=== PATIENT | female | born 1975 | race Caucasian/White ===

== ENCOUNTER 2016-09-02 08:52 | Emergency (ER) | payer SELFPAY ==
--- NOTE | 2016-09-02 09:04 | EDM.PDOC ---
<Estee Yoo - Last Filed: 09/02/16 10:13> ED HPI GENERAL MEDICAL PROBLEM - General Chief Complaint: General Stated Complaint: HEADACHE AND HAVEN'T HAD HER PERIOD IN 2MONTHS Time Seen by Provider: 09/02/16 08:55 - History of Present Illness INITIAL COMMENTS - FREE TEXT/NARRATIVE: History of present illness: [41-year-old female URI symptoms and headache x3 days. She has not tried over- the-counter medication. She denies fever chills nausea vomiting, abdominal pain , diarrhea, serious, frequency, urgency other pertinent symptoms. She has not gotten her period for past 2 months which is unusual for her. She had tubal ligation 16 years ago. She has not taken any test. She is monogamous with her and they are sexually active.] Review of systems: As per history of present illness and below otherwise all systems reviewed and negative. Past medical history: As per history of present illness and as reviewed below otherwise noncontributory. Surgical history: As per history of present illness and as reviewed below otherwise noncontributory. Social history: No reported history of drug or alcohol abuse. Family history: As per history of present illness and as reviewed below otherwise noncontributory. Physical exam: General: Well developed, well nourished in NAD HEENT: Atraumatic, normocephalic, pupils reactive, negative for conjunctival pallor or scleral icterus, mucous membranes moist, throat clear, neck supple, nontender, trachea midline. Lungs: Clear to auscultation, breath sounds equal bilaterally, chest nontender. Heart: S1S2, regular, negative for clicks, rubs, or JVD. Abdomen: Soft, nondistended, nontender. Negative for masses or hepatosplenomegaly. Negative for costovertebral tenderness. Pelvis: Stable nontender. 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: Deferred. Rectal: Deferred. Extremities: Atraumatic, negative for cords or calf pain. Neurovascular unremarkable. Neuro: Awake, alert, oriented. Cranial nerves II through XII unremarkable. Cerebellum unremarkable. Motor and sensory unremarkable throughout. Exam nonfocal. Diagnostics: [Urine H. CG negative] Therapeutics: Toradol] Impression: [Sinus headache, URI] Plan: [increase hydration, flonase , motrin prn. please follow up PCP next week. ] Definitive disposition and diagnosis as appropriate pending reevaluation and review of above. 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: Psychiatric History: Reports: Anxiety, Depression Endocrine/Metabolic History: Reports: Diabetes, type I - Past Surgical History GI Surgical History: Reports: Cholecystectomy Female Surgical History: Reports: section Social & Family History - Family History Cardiac: Reports: Hypertension, [place] - Tobacco Use Smoking Status *Q: Current Every Day Smoker Years of Tobacco use: 26 Packs/Tins Daily: 0.5 Second Hand Smoke Exposure: No - Recreational Drug Use Recreational Drug Use: No ED ROS GENERAL - Review of Systems Review Of Systems: See Below (See history of present illness) ED EXAM, GENERAL - Physical Exam Exam: See Below (See history of present illness) Course - Vital Signs Last Recorded V/S: Last Vital Signs Temp 36.6 C 09/02/16 08:59 Pulse 100 09/02/16 08:59 Resp 16 09/02/16 08:59 BP 176/88 H 09/02/16 08:59 Pulse Ox 98 09/02/16 08:59 - Orders/Labs/Meds Labs: Laboratory Tests 09/02/16 Range/Units 09:37 Urine HCG, Qual NEGATIVE (NEGATIVE) Meds: Medications Discontinued Medications Generic Name Dose Route Start Last Admin Trade Name Salomónq PRN Reason Stop Dose Admin Ketorolac Tromethamine 60 mg 09/02/16 09:12 09/02/16 10:12 Toradol IM 09/02/16 09:13 60 mg ONETIME ONE Administration Departure - Departure Time of Disposition: 10:17 Disposition: Home, Self-Care 01 Condition: good Clinical Impression: URI (upper respiratory infection), Sinusitis Instructions: Sinusitis, Adult, [id number], Upper Respiratory Infection, Adult, [id number] Referrals: Bran Hubbard MD [Primary Care Provider] - Forms: ED Department Discharge Additional Instructions: The following information is given to patients seen in the emergency department who are being discharged to home. This information is to outline your options for follow-up care. We provide all patients seen in our emergency department with a follow-up referral. The need for follow-up, as well as the timing and circumstances, are variable depending upon the specifics of your emergency department visit. If you don't have a primary care physician on staff, we will provide you with a referral. We always advise you to contact your personal physician following an emergency department visit to inform them of the circumstance of the visit and for follow-up with them and/or the need for any referrals to a consulting specialist. The emergency department will also refer you to a specialist when appropriate. This referral assures that you have the opportunity for follow-up care with a specialist. All of these measure are taken in an effort to provide you with optimal care, which includes your follow-up. Under all circumstances we always encourage you to contact your private physician who remains a resource for coordinating your care. When calling for follow-up care, please make the office aware that this follow-up is from your recent emergency room visit. If for any reason you are refused follow-up, please contact the [facility] Emergency Department at and asked to speak to the emergency department charge nurse. <Daniel Johnson - Last Filed: 09/02/16 10:42> ED HPI GENERAL MEDICAL PROBLEM - General Source of Information: Reports: Patient History Limitations: Reports: No limitations - History of Present Illness INITIAL COMMENTS - FREE TEXT/NARRATIVE: 31-year-old female admitting of sinus congestion and clear runny nose. This is this is a mild frontal sinus headache. Has occasional dry cough and congestion her left maxillary sinus area is the most sore. On exam patient is well-appearing alert communicative has a supple neck clear rhinorrhea mild tenderness left maxillary sinus normal TMs and oropharynx clear lungs and unremarkable vital signs Patient has had a history of tubal ligation but she hasn't had a period recently and is wondering if she could be urine was negative. Patient given Toradol IM. Recommended for outpatient followup with which patient agrees she will use Flonase nasal spray as an outpatient. No further workup or treatment indicated patient agrees with outpatient followup strict return precautions given Daniel Johnson M.D.
[2016-09-02] MEDS ORDERED: Ketorolac 60 MG/2 ML SDV IM ONE (09:12)
[2016-09-02 10:59] VITALS: BP 145/69
== END 2016-09-02 10:27 | disposition home or self-care (01) ==
LOC: MW.ED 08:52
DX: R51 Headache (principal); J06.9 Acute upper respiratory infection, unspecified; I10 Essential (primary) hypertension; E10.9 Type 1 diabetes mellitus without complications; F17.210 Nicotine dependence, cigarettes, uncomplicated; Z79.4 Long term (current) use of insulin; Z79.899 Other long term (current) drug therapy; Z90.49 Acquired absence of other specified parts of digestive tract; Z98.890 Other specified postprocedural states
CPT/HCPCS: 81025; 96372; 99284; J1885; 99283

== ENCOUNTER 2016-12-06 07:19 | Emergency (ER) | payer OTHER ==
--- NOTE | 2016-12-06 07:45 | EDM.PDOC ---
ED HPI GENERAL MEDICAL PROBLEM - General Chief Complaint: ENT Problem Stated Complaint: RIGHT EAR PAIN Time Seen by Provider: 12/06/16 07:40 - History of Present Illness INITIAL COMMENTS - FREE TEXT/NARRATIVE: HISTORY AND PHYSICAL: History of present illness: Patient 41-year-old female presents with concern of right ear and right throat pain despite over last 2-3 days his been no fever chills nausea vomiting or other complaints Review of systems: As per history of present illness and below otherwise all systems reviewed and negative. Past medical history: As per history of present illness and as reviewed below otherwise noncontributory. Surgical history: As per history of present illness and as reviewed below otherwise noncontributory. Social history: No reported history of drug or alcohol abuse. Family history: As per history of present illness and as reviewed below otherwise noncontributory. Physical exam: HEENT: Atraumatic, normocephalic, pupils reactive, negative for conjunctival pallor or scleral icterus, mucous membranes moist, throat injected neck negative for peritonsillar fullness or uvular deviation supple, nontender, trachea midline. TMs normal Lungs: Clear to auscultation, breath sounds equal bilaterally, chest nontender. Heart: S1S2, regular, negative for clicks, rubs, or JVD. Abdomen: Soft, nondistended, nontender. Negative for masses or hepatosplenomegaly. Negative for costovertebral tenderness. Pelvis: Stable nontender. 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: Deferred. Rectal: Deferred. Extremities: Atraumatic, negative for cords or calf pain. Neurovascular unremarkable. Neuro: Awake, alert, oriented. Cranial nerves II through XII unremarkable. Cerebellum unremarkable. Motor and sensory unremarkable throughout. Exam nonfocal. Diagnostics: None Therapeutics: None Impression: #1 pharyngitis #2 otalgia Definitive disposition and diagnosis as appropriate pending reevaluation and review of above. 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: Psychiatric History: Reports: Anxiety, Depression Endocrine/Metabolic History: Reports: Diabetes, Type I - Infectious Disease History Infectious Disease History: Reports: Chicken Pox - Past Surgical History GI Surgical History: Reports: Cholecystectomy Female Surgical History: Reports: Section Social & Family History - Family History Family Medical History: Noncontributory Cardiac: Reports: Hypertension, [place] - Tobacco Use Smoking Status *Q: Never Smoker Years of Tobacco use: 26 Packs/Tins Daily: 0.5 Second Hand Smoke Exposure: No - Recreational Drug Use Recreational Drug Use: No ED ROS GENERAL - Review of Systems Review Of Systems: ROS reveals no pertinent complaints other than HPI. ED EXAM, GENERAL - Physical Exam Exam: See Below (See dictation) Course - Vital Signs Last Recorded V/S: Last Vital Signs Temp 36.2 C 12/06/16 07:29 Pulse 90 12/06/16 07:29 Resp 18 12/06/16 07:29 BP 178/81 H 12/06/16 07:29 Pulse Ox 97 12/06/16 07:29 Departure - Departure Time of Disposition: 07:43 Disposition: Home, Self-Care 01 Condition: Good Clinical Impression: Pharyngitis - Discharge Information Forms: ED Department Discharge Additional Instructions: The following information is given to patients seen in the emergency department who are being discharged to home. This information is to outline your options for follow-up care. We provide all patients seen in our emergency department with a follow-up referral. The need for follow-up, as well as the timing and circumstances, are variable depending upon the specifics of your emergency department visit. If you don't have a primary care physician on staff, we will provide you with a referral. We always advise you to contact your personal physician following an emergency department visit to inform them of the circumstance of the visit and for follow-up with them and/or the need for any referrals to a consulting specialist. The emergency department will also refer you to a specialist when appropriate. This referral assures that you have the opportunity for followup care with a specialist. All of these measure are taken in an effort to provide you with optimal care, which includes your followup. Under all circumstances we always encourage you to contact your private physician who remains a resource for coordinating your care. When calling for followup care, please make the office aware that this follow-up is from your recent emergency room visit. If for any reason you are refused follow-up, please contact the [facility] emergency department at and asked to speak to the emergency department charge nurse. Augmentin Tylenol with Codeine as prescribed push fluids follow primary medical doctor one of today's return as needed as discussed
== END 2016-12-06 07:53 | disposition home or self-care (01) ==
LOC: MW.ED 07:19
CPT/HCPCS: 99282

== ENCOUNTER 2017-03-14 13:39 | Observation (INO) | payer OTHER ==
[2017-03-14] MEDS ORDERED: Aspirin 81 MG Tab.Chew PO ONE (13:51)
[2017-03-14] MEDS ORDERED: Sodium Chloride 0.9% 10 ML Syringe FLUSH PRN (13:51)
[2017-03-14] MEDS ORDERED: Sodium Chloride 0.9% 2.5 ML Syringe FLUSH PRN (13:51)
--- NOTE | 2017-03-14 14:20 | EDM.PDOC ---
ED HPI GENERAL MEDICAL PROBLEM - General Chief Complaint: Chest Pain Stated Complaint: CHEST PAIN Time Seen by Provider: 03/14/17 13:51 Source of Information: Reports: Patient History Limitations: Reports: No Limitations - History of Present Illness INITIAL COMMENTS - FREE TEXT/NARRATIVE: HISTORY AND PHYSICAL: History of present illness: Shouldn't is a 42-year-old female who presents to the emergency room today with complaints of chest pain that started at 10 AM this morning. She states the pain is midsternal and moves into the left chest and down the left arm. She denies any diaphoresis, nausea, vomiting. Is associated with shortness of breath. When the pain started she states she was at rest. Currently nothing makes the pain better or worse. Chest pain is not reproducible with palpation. She has no personal history of heart disease. States both grandparents have history of [place]. Patient has a history of diabetes type 1 which she takes insulin for. States she states she is well controlled. As a history of anxiety and currently has increased stressors going on at home. Not take any when necessary or daily medication for this. Review of systems: As per history of present illness and below otherwise all systems reviewed and negative. Past medical history: As per history of present illness and as reviewed below otherwise noncontributory. Surgical history: As per history of present illness and as reviewed below otherwise noncontributory. Social history: No reported history of drug or alcohol abuse. Family history: As per history of present illness and as reviewed below otherwise noncontributory. Physical exam: General: Nontoxic appearing 42-year-old female. Able to speak in full sentences without shortness of breath. Alert and oriented. HEENT: Atraumatic, normocephalic, pupils reactive, negative for conjunctival pallor or scleral icterus, mucous membranes moist, throat clear, neck supple, nontender, trachea midline. Lungs: Clear to auscultation, breath sounds equal bilaterally, chest nontender. Heart: S1S2, regular rate and rhythm Abdomen: Soft, nondistended, nontender. Negative for masses or hepatosplenomegaly. Negative for costovertebral tenderness. Pelvis: Stable nontender. 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: Deferred. Rectal: Deferred. Extremities: Atraumatic, negative for cords or calf pain. Neurovascular unremarkable. Neuro: Awake, alert, oriented. Cranial nerves II through XII unremarkable. Cerebellum unremarkable. Motor and sensory unremarkable throughout. Exam nonfocal. Reviewed all testing results with patient. At this time I did offer her admission for observation, she is agreeable to stay. Upon discussing her plan of care she became tearful stating that she had increased stressors at home and was thought that her significant other was not coming to be wither (going through a divorce). Dr. miguel was consulted on this case and he has agreed to admit for observation on telemetry. Diagnostics: CBC, CMP, troponin, EKG, one view chest, Therapeutics: Aspirin, nitroglycerin Nitropaste Impression: Chest pain, rule out myocardial infarction Plan: Observation admission for med surge on telemetry Definitive disposition and diagnosis as appropriate pending reevaluation and review of above. Onset: Today Onset Date: 03/14/17 Onset Time: 10:00 Duration: Hour(s): Location: Reports: Chest chest Pain Score (Numeric/FACES): 10 - Related Data Allergies Allergy/AdvReac Type Severity Reaction Status Date / Time No Known Allergies Allergy Verified 09/02/16 09:02 Home Meds: Home Meds Insulin Aspart [Novolog Flexpen] 72 units SQ BEDTIME 04/25/14 [History] Lisinopril 1 tab PO DAILY 03/31/15 [History] Insulin Glargine,Hum.Rec.Anlog [Toujeo Solostar] 74 unit SQ BEDTIME 03/14/17 [ History] Omeprazole Magnesium [Prilosec Otc] 20 mg PO DAILY 03/14/17 [History] atorvaSTATin [Lipitor] 10 mg PO DAILY 03/14/17 [History] Past Medical History - Past Health History Medical/Surgical History: Denies Medical/Surgical History Cardiovascular History: Reports: Hypertension 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 History: Reports: 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: Psychiatric History: Reports: Anxiety, Depression Endocrine/Metabolic History: Reports: Diabetes, Type I - Infectious Disease History Infectious Disease History: Reports: Chicken Pox - Past Surgical History GI Surgical History: Reports: Cholecystectomy Female Surgical History: Reports: Section Social & Family History - Family History Family Medical History: Noncontributory Cardiac: Reports: Hypertension, [place] - Tobacco Use Smoking Status *Q: Current Every Day Smoker Years of Tobacco use: 18 Packs/Tins Daily: 1 Second Hand Smoke Exposure: No - Recreational Drug Use Recreational Drug Use: No ED ROS GENERAL - Review of Systems Review Of Systems: ROS reveals no pertinent complaints other than HPI. ED EXAM, GENERAL - Physical Exam Exam: See Below (See dictation) Course - Vital Signs Last Recorded V/S: Last Vital Signs Temp 36.6 C 03/14/17 15:39 Pulse 84 03/14/17 15:39 Resp 18 03/14/17 15:39 BP 167/77 H 03/14/17 15:39 Pulse Ox 97 03/14/17 15:39 - Orders/Labs/Meds Orders: Active Orders 24 hr Category Date Time Status Admission Status [Patient Status] [ADT] Stat ADT 03/14/17 15:14 Ordered EKG Documentation Completion [RC] STAT Care 03/14/17 13:51 Active Telemetry Monitoring [Cardiac Monitoring] [RC] Q8H Care 03/14/17 15:22 Active Chest 1V Frontal [CR] Stat Exams 03/14/17 13:51 Taken Sodium Chloride 0.9% [Saline Flush] Med 03/14/17 13:51 Active 10 ml FLUSH ASDIRECTED PRN Sodium Chloride 0.9% [Saline Flush] Med 03/14/17 13:51 Active 2.5 ml FLUSH ASDIRECTED PRN Saline Lock Insert [OM.PC] Stat Oth 03/14/17 13:51 Ordered Medication Orders Sodium Chloride (Saline Flush) 10 ml FLUSH ASDIRECTED PRN PRN Reason: Keep Vein Open Last Admin: 03/14/17 14:28 Dose: 10 ml Sodium Chloride (Saline Flush) 2.5 ml FLUSH ASDIRECTED PRN PRN Reason: Keep Vein Open Last Admin: 03/14/17 14:28 Dose: 2.5 ml Labs: Laboratory Tests 03/14/17 03/14/17 03/14/17 Range/Units 14:00 14:00 14:00 WBC 10.14 (4.0-11.0) K/uL RBC 4.19 L (4.30-5.90) M/uL Hgb 12.9 (12.0-16.0) g/dL Hct 38.6 (36.0-46.0) % MCV 92.1 (80.0-98.0) fL MCH 30.8 (27.0-32.0) pg MCHC 33.4 (31.0-37.0) g/dL RDW Std Deviation 45.8 (28.0-62.0) fl RDW Coeff of Jb 14 (11.0-15.0) % Plt Count 245 (150-400) K/uL MPV 10.90 (7.40-12.00) fL Neut % (Auto) 66.2 (48.0-80.0) % Lymph % (Auto) 20.8 (16.0-40.0) % Smith % (Auto) 9.3 (0.0-15.0) % Eos % (Auto) 3.1 (0.0-7.0) % Baso % (Auto) 0.6 (0.0-1.5) % Neut # (Auto) 6.7 H (1.4-5.7) K/uL Lymph # (Auto) 2.1 (0.6-2.4) K/uL Smith # (Auto) 0.9 H (0.0-0.8) K/uL Eos # (Auto) 0.3 (0.0-0.7) K/uL Baso # (Auto) 0.1 (0.0-0.1) K/uL Sodium 140 (136-146) mmol/L Potassium 4.0 (3.5-5.1) mmol/L Chloride 109 (98-110) mmol/L Carbon Dioxide 22 (21-31) mmol/L BUN 18 (6.0-23.0) mg/dL Creatinine 0.8 (0.6-1.5) mg/dL Est Cr Clr Drug Dosing TNP Estimated GFR (MDRD) > 60.0 ml/min Glucose 170 H (60-110) mg/dL Calcium 8.5 L (8.8-10.8) mg/dL Total Bilirubin 0.4 (0.1-1.5) mg/dL AST 17 (5-40) IU/L ALT 14 (8-54) IU/L Alkaline Phosphatase 76 (40-150) Troponin I < 0.10 (0.0-0.29) NG/ML Total Protein 6.7 (6.0-8.0) g/dL Albumin 3.9 (3.5-5.0) g/dL Globulin 2.8 (2.0-3.5) g/dL Albumin/Globulin Ratio 1.4 (1.3-2.8) Meds: Medications Generic Name Dose Route Start Last Admin Trade Name Salomónq PRN Reason Stop Dose Admin Sodium Chloride 10 ml 03/14/17 13:51 03/14/17 14:28 Saline Flush FLUSH 10 ml ASDIRECTED PRN Administration Keep Vein Open Sodium Chloride 2.5 ml 03/14/17 13:51 03/14/17 14:28 Saline Flush FLUSH 2.5 ml ASDIRECTED PRN Administration Keep Vein Open Discontinued Medications Generic Name Dose Route Start Last Admin Trade Name Thu PRN Reason Stop Dose Admin Aspirin 324 mg 03/14/17 13:51 03/14/17 14:23 Aspirin PO 03/14/17 13:52 324 mg ONETIME ONE Administration Influenza Virus Vaccine 1 each 03/14/17 15:54 Pharmacy To Dose - Influenza Vaccine IM 03/14/17 15:55 ONETIME ONE Influenza Virus Vaccine 60 mcg 03/14/17 16:00 Flulaval Quad [id number] IM 03/14/17 16:01 .ONCE ONE Morphine Sulfate 2 mg 03/14/17 15:09 03/14/17 15:27 Morphine IVPUSH 03/14/17 15:10 2 mg ONETIME ONE Administration Nitroglycerin 0.4 mg 03/14/17 13:58 03/14/17 14:35 Nitrostat SL 0.4 mg Q5M PRN Administration Chest Pain Nitroglycerin 1 gm 03/14/17 15:09 03/14/17 15:28 Nitro-Bid 2% TOP 03/14/17 15:10 1 gm ONETIME ONE Administration Departure - Departure Time of Disposition: 16:07 Disposition: Refer to Observation Clinical Impression: Chest pain, rule out acute myocardial infarction Referrals: PCP,None [Ordering Only Provider] - Forms: ED Department Discharge - My Orders Last 24 Hours: My Active Orders 03/14/17 13:51 EKG Documentation Completion [RC] STAT Chest 1V Frontal [CR] Stat Sodium Chloride 0.9% [Saline Flush] 10 ml FLUSH ASDIRECTED PRN Sodium Chloride 0.9% [Saline Flush] 2.5 ml FLUSH ASDIRECTED PRN Saline Lock Insert [OM.PC] Stat 03/14/17 15:14 Admission Status [Patient Status] [ADT] Stat - Assessment/Plan Last 24 Hours: My Active Orders 03/14/17 13:51 EKG Documentation Completion [RC] STAT Chest 1V Frontal [CR] Stat Sodium Chloride 0.9% [Saline Flush] 10 ml FLUSH ASDIRECTED PRN Sodium Chloride 0.9% [Saline Flush] 2.5 ml FLUSH ASDIRECTED PRN Saline Lock Insert [OM.PC] Stat 03/14/17 15:14 Admission Status [Patient Status] [ADT] Stat
[2017-03-14] MEDS: Nitroglycerin 0.4 MG Tab.SL SL PRN ×3 (14:27→14:35)
[2017-03-14 14:29] LABS: CHLORIDE,CL 109 mmol/L (98-110); SODIUM,NA 140 mmol/L (136-146)
[2017-03-14] MEDS ORDERED: Nitroglycerin 2% Oint 1 GM UD Packet TOP ONE (15:09)
[2017-03-14] MEDS ORDERED: Morphine 2 MG/ML Syringe IVPUSH ONE (15:09)
--- NOTE | 2017-03-14 15:52 | PCM.HP ---
H&P History of Present Illness - General Date of Service: 03/14/17 Admit Problem/Dx: Admission Diagnosis/Problem Admission Diagnosis/Problem Chest pain, rule out acute myocardial infarction Source of Information: Patient History Limitations: Reports: No Limitations - History of Present Illness Initial Comments - Free Text/Narative: 42 yo fm with history of HTN, IDDM & hyperlipidemia is admitted for chest pain. Chest pain began at 10 am today. She was moving things in her house. Pain was intermittent at first but then became continuous. It was pressure like, left sided and at its worst it was 10/10. She had tingling sensation down her left arm. She denies any associated, sob, dizziness, vision change, cough, vomiting, abdominal pain, fever, chills, or recent illness. She presented to the ED where she was given Morphine an Nitroglycerin patch which improved pain to 4-5/10. She has no previous history of similar type of pain. While being evaluated on the floor, she had recurrence of chest pain. chest Pain Score (Numeric/FACES): 10 - Related Data Allergies/Adverse Reactions: Allergies Allergy/AdvReac Type Severity Reaction Status Date / Time No Known Allergies Allergy Verified 09/02/16 09:02 Home Medications: Home Meds Insulin Aspart [Novolog Flexpen] 5 units SQ BIDAC 04/25/14 [History] Lisinopril 10 mg PO DAILY 03/31/15 [History] Insulin Glargine,Hum.Rec.Anlog [Toujeo Solostar] 74 unit SQ BEDTIME 03/14/17 [ History] Omeprazole Magnesium [Prilosec Otc] 20 mg PO DAILY 03/14/17 [History] atorvaSTATin [Lipitor] 10 mg PO DAILY 03/14/17 [History] Past Medical History - Past Health History Medical/Surgical History: Denies Medical/Surgical History Cardiovascular History: Reports: Hypertension 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 History: Reports: Renal Disease [employer] History: Reports: Psychiatric History: Reports: Anxiety, Depression Endocrine/Metabolic History: Reports: Diabetes, Type I - Infectious Disease History Infectious Disease History: Reports: Chicken Pox - Past Surgical History GI Surgical History: Reports: Cholecystectomy Female Surgical History: Reports: Section Social & Family History - Family History Family Medical History: Noncontributory Cardiac: Reports: Hypertension, [place] - Tobacco Use Smoking Status *Q: Current Every Day Smoker Years of Tobacco use: 18 Packs/Tins Daily: 1 Second Hand Smoke Exposure: No - Recreational Drug Use Recreational Drug Use: No H&P Review of Systems - Review of Systems: Review Of Systems: See Below General: Reports: No Symptoms HEENT: Reports: No Symptoms Pulmonary: Reports: No Symptoms Cardiovascular: Reports: Chest Pain Gastrointestinal: Reports: No Symptoms 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: Reports: No Symptoms 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: Reports: No Symptoms Skin: Reports: No Symptoms Psychiatric: Reports: No Symptoms Neurological: Reports: No Symptoms Hematologic/Lymphatic: Reports: No Symptoms Immunologic: Reports: No Symptoms Exam - Exam Exam: See Below - Vital Signs Vital Signs: Last Vital Signs Temp 36.6 C 03/14/17 13:39 Pulse 91 03/14/17 14:29 Resp 18 03/14/17 14:29 BP 145/69 H 03/14/17 14:35 Pulse Ox 97 03/14/17 14:29 Weight: 86.183 kg - Exam General: Alert, Oriented HEENT: Conjunctiva Clear, EACs Clear, EOMI, Hearing Intact, Mucosa Moist & [place] , Nares Patent, Normal Nasal Septum, Posterior Pharynx Clear, Pupils Equal, Pupils Reactive Neck: Supple, Trachea Midline, +2 Carotid Pulse wo Bruit. No: JVD Lungs: Clear to Auscultation, Normal Respiratory Effort Cardiovascular: Regular Rate, Regular Rhythm GI/Abdominal Exam: Soft, Non-Tender Extremities: No Pedal Edema, Other (BL Calf tenderness ). No: Increased Warmth Peripheral Pulses: 1+: Dorsalis Pedis (L), Dorsalis Pedis (R), 2+: Radial (L), Radial (R) Skin: Warm, Dry, Intact Neurological: Cranial Nerves Intact, Reflexes Equal Bilateral Neuro Extensive - Mental Status: Alert, Oriented x3 Psychiatric: Anxious - Patient Data Result Diagrams: 03/14/17 14:00 03/14/17 14:00 *Q Meaningful Use (ADM) - VTE *Q VTE Criteria *Q: - Stroke *Q Stroke Criteria *Q: - AMI *Q AMI Criteria *Q: Problem List Initiated/Reviewed/Updated: Yes Orders Last 24hrs: Active Orders 24 hr Category Date Time Status Telemetry Monitoring [Cardiac Monitoring] [RC] Q8H Care 03/14/17 15:22 Active Medication Orders Sodium Chloride (Saline Flush) 10 ml FLUSH ASDIRECTED PRN PRN Reason: Keep Vein Open Last Admin: 03/14/17 14:28 Dose: 10 ml Sodium Chloride (Saline Flush) 2.5 ml FLUSH ASDIRECTED PRN PRN Reason: Keep Vein Open Last Admin: 03/14/17 14:28 Dose: 2.5 ml Assessment/Plan Comment:: Assessment: 42 yo fm with history of DM admitted for chest pain rule out. Initial EKG/Troponin/CXR in ED was negative. She is noted of having BL Calf tenderness. Still having breakthrough intermittent chest pain with Nitroglycerin patch 1. Chest Pain 2. DM, Insulin Dependent 3. HTN, on Lisinopril 4. Hyperlipidemia, on Lipitor 5. Tobacco Abuse Plan: 1. Admit to Observation 2. Add D-Dimer to ED blood draw. CTA if elevated. 3. Telemetry 4. Obtain Toropin q6 hours for total 3 readings. 5. start Continuous O2 until PE ruled out. Then switch to PRN to maintain SpO2> 92 6.give Morphine 2 mg IV now. then continue PRN for severe pain 7-10 7. Diabetic Diet 8. resume home long acting insulin 74 units 9. start Novolog low dose as per protocol & glucose check TIDAC 10. resume home Lisinopril & Lipitor
[2017-03-14] MEDS ORDERED: FLU Vacc QS 2017-18 (6mos UP)/PF 60 MCG/0.5 ML Syringe IM ONE (16:00)
[2017-03-14] MEDS: Morphine 2 MG/ML Syringe IVPUSH PRN ×2 (16:29→18:32)
[2017-03-14] MEDS: Insulin Aspart 100 Units/ML 3 ML Pen SUBCUT SCH ×2 (16:34→17:19)
--- NOTE | 2017-03-14 18:08 | PCM.SN ---
- Free Text/Narrative Note: I have interviewed and examined Jacqueline Madrid, I have reviewed her data. I agree with Dr. Munroe's noted history, exam and plan. Her calves have specific tenderness but no redness or swelling. The D-Dimer was negative and CT angio of the chest is not thought to be indicated. She will have further troponin testing and will have diabetic monitoring. The morphine has relieved her pain.
[2017-03-14] MEDS: Acetaminophen 325 MG Tab PO PRN (18:12)
[2017-03-14] MEDS ORDERED: 50% Dextrose in Water 50 ML Syringe IVPUSH ONE ×2 (19:46→22:08)
[2017-03-14] MEDS ORDERED: INSULIN GLARGINE HUM REC ANLOG SQ SCH (21:00)
[2017-03-14] MEDS ORDERED: LORazepam 0.5 MG Tab PO PRN (21:00)
[2017-03-14] MEDS ORDERED: [UNRECOGNIZED DRUG - OTHER] SQ SCH (21:00)
[2017-03-14] MEDS ORDERED: 50% Dextrose in Water 50 ML Syringe IVPUSH PRN (22:11)
[2017-03-15 02:26] LABS: CHLORIDE,CL 110 mmol/L (98-110); SODIUM,NA 141 mmol/L (136-146)
[2017-03-15] MEDS: 50% Dextrose in Water 50 ML Syringe IVPUSH PRN ×2 (06:24→11:37)
[2017-03-15] MEDS: Insulin Aspart 100 Units/ML 3 ML Pen SUBCUT SCH ×2 (06:43→12:11)
[2017-03-15] MEDS: Acetaminophen 325 MG Tab PO PRN (08:13)
[2017-03-15] MEDS ORDERED: Enoxaparin 40 MG/0.4 ML Syringe SUBCUT SCH (09:00)
--- NOTE | 2017-03-15 10:52 | PCM.DCSUM1 ---
<Baluch,Darien - Last Filed: 03/15/17 12:32> Discharge Summary - Hospital Course Free Text/Narrative:: 42 yo fm with history of DM T1, HTN and Hyperlidema was admitted for chest pain on 03/14/17. Her chest pain was atypical in that it was intermittent and occurring at rest. It would occur in short bursts but did become milder as the night progressed. Her initial EKG, troponin and CXR were negative. She was placed on observation with telemetry. Her overnight telemetry was NSR with HR 70 -90 with intermittent PVC's (approximately 1-2/ hour). Her Troponin was checked [id number] for 3 sets and were all negative. She did have recurrence of short mild intermittent chest pain the next morning. She was given referral for stress test and scheduled for f/u with Dr. Leonardo. During hospitalizations he also was noted have episodes of hypoglycemia for which she needed to be given D50 of multiple occasions. She was asymptomatic when this happened. Her Toujeo is 74 units Daily at bedtime. This was held. The following day she was still noted to be hypoglycemic on 2 separate occasions with blood glucose ranging from 30-40. One of these events occurred about 1-2 hours after she ate small meal from [employer]. Due to suspicion of faulty we had it checked with a different glucometer and found it to off by 20 points. Therefore we presume her blood glucose was still approximately 40-60. Therefore we instructed her to test her blood glucose at home at least 4 times daily. She was instructed to hold her Toujeo unless she found her blood sugar to return back to normal range. She was also instructed to follow-up with her PCP Dr. Hubbard due to this matter. She was discharged home on 03/15/17. - Discharge Data Discharge Date: 03/15/17 Discharge Disposition: Home, Self-Care 01 Condition: Good - Patient Summary/Data Recommended Follow-up Testing/Procedures: Stress Test - Patient Instructions Diet: Usual Diet as Tolerated Diet, Other: Avoid going long periods without eating or driniking Activity: As Tolerated, Rest and Relax Today Showering/Bathing: May Shower Notify Provider of: Fever, Increased Pain, Swelling and Redness, Drainage, Nausea and/or Vomiting Other/Special Instructions: 1. Avoid using your Toujeo until your appetite is improved and you are eating more ofter. 2. Check your blood sugar more than twice per day to ensure it is not low. If it is low eat something immediateley. 3. You should call your PCP to schedule appointment regarding you low blood sugar and discuss your insulin dose. 4. You will be contacted by the Hospital to schedule your Stress Test. 5. You should contact office of Dr. Leonardo to schedule a follow-up appointment for your chest pain. - Discharge Plan Home Medications: Home Meds Insulin Aspart [Novolog Flexpen] 5 units SQ BIDAC 04/25/14 [History] Lisinopril 10 mg PO DAILY 03/31/15 [History] Insulin Glargine,Hum.Rec.Anlog [Toujeo Solostar] 74 unit SQ BEDTIME 03/14/17 [ History] Omeprazole Magnesium [Prilosec Otc] 20 mg PO DAILY 03/14/17 [History] Venlafaxine HCl [Venlafaxine ER] 75 mg PO 03/14/17 [History] atorvaSTATin [Lipitor] 10 mg PO DAILY 03/14/17 [History] Patient Handouts: Hypoglycemia, Nonspecific Chest Pain, [id number] Forms: ED Department Discharge Referrals: [facility] [Outside] Melissa Leonardo MD [Physician] - Bran Hubbard MD [Physician] - PCP,None [Primary Care Provider] - (1. Call Dr. Leonardo, [facility] office to schedule apppointment on thursday 2. Call your PCP Dr. Hubbard to schedule appointment on thursday ) - Discharge Summary/Plan Comment DC Time >30 min.: No - Patient Data Vitals - Most Recent: Last Vital Signs Temp 36.2 C 03/15/17 08:00 Pulse 72 03/15/17 08:00 Resp 18 03/15/17 08:00 BP 147/66 H 03/15/17 08:00 Pulse Ox 97 03/15/17 08:00 Weight - Most Recent: 86.183 kg I&O - Last 24 hours: Intake & Output 03/14/17 03/15/17 03/15/17 22:59 06:59 14:59 Intake Total 0 1044 Output Total 0 575 Balance 0 469 Lab Results - Last 24 hrs: Laboratory Results - last 24 hr 03/14/17 03/14/17 03/14/17 Range/Units 16:33 19:37 20:07 WBC (4.0-11.0) K/uL RBC (4.30-5.90) M/uL Hgb (12.0-16.0) g/dL Hct (36.0-46.0) % MCV (80.0-98.0) fL MCH (27.0-32.0) pg MCHC (31.0-37.0) g/dL RDW Std Deviation (28.0-62.0) fl RDW Coeff of Jb (11.0-15.0) % Plt Count (150-400) K/uL MPV (7.40-12.00) fL Neut % (Auto) (48.0-80.0) % Lymph % (Auto) (16.0-40.0) % Carlisle % (Auto) (0.0-15.0) % Eos % (Auto) (0.0-7.0) % Baso % (Auto) (0.0-1.5) % Neut # (Auto) (1.4-5.7) K/uL Lymph # (Auto) (0.6-2.4) K/uL Carlisle # (Auto) (0.0-0.8) K/uL Eos # (Auto) (0.0-0.7) K/uL Baso # (Auto) (0.0-0.1) K/uL Sodium (136-146) mmol/L Potassium (3.5-5.1) mmol/L Chloride (98-110) mmol/L Carbon Dioxide (21-31) mmol/L BUN (6.0-23.0) mg/dL Creatinine (0.6-1.5) mg/dL Est Cr Clr Drug Dosing mL/min Estimated GFR (MDRD) ml/min Glucose (60-110) mg/dL POC Glucose 89 26 L (60-110) mg/dL Calcium (8.8-10.8) mg/dL Troponin I < 0.10 (0.0-0.29) NG/ML 03/14/17 03/14/17 03/15/17 Range/Units 22:00 23:51 01:56 WBC 10.58 (4.0-11.0) K/uL RBC 4.02 L (4.30-5.90) M/uL Hgb 12.3 (12.0-16.0) g/dL Hct 37.6 (36.0-46.0) % MCV 93.5 (80.0-98.0) fL MCH 30.6 (27.0-32.0) pg MCHC 32.7 (31.0-37.0) g/dL RDW Std Deviation 46.4 (28.0-62.0) fl RDW Coeff of Jb 14 (11.0-15.0) % Plt Count 223 (150-400) K/uL MPV 10.80 (7.40-12.00) fL Neut % (Auto) 55.9 (48.0-80.0) % Lymph % (Auto) 30.6 (16.0-40.0) % Carlisle % (Auto) 9.2 (0.0-15.0) % Eos % (Auto) 3.9 (0.0-7.0) % Baso % (Auto) 0.4 (0.0-1.5) % Neut # (Auto) 5.9 H (1.4-5.7) K/uL Lymph # (Auto) 3.2 H (0.6-2.4) K/uL Carlisle # (Auto) 1.0 H (0.0-0.8) K/uL Eos # (Auto) 0.4 (0.0-0.7) K/uL Baso # (Auto) 0.0 (0.0-0.1) K/uL Sodium (136-146) mmol/L Potassium (3.5-5.1) mmol/L Chloride (98-110) mmol/L Carbon Dioxide (21-31) mmol/L BUN (6.0-23.0) mg/dL Creatinine (0.6-1.5) mg/dL Est Cr Clr Drug Dosing mL/min Estimated GFR (MDRD) ml/min Glucose (60-110) mg/dL POC Glucose 46 L 128 H (60-110) mg/dL Calcium (8.8-10.8) mg/dL Troponin I (0.0-0.29) NG/ML 03/15/17 03/15/1717 Range/Units 01:56 01:56 06:21 WBC (4.0-11.0) K/uL RBC (4.30-5.90) M/uL Hgb (12.0-16.0) g/dL Hct (36.0-46.0) % MCV (80.0-98.0) fL MCH (27.0-32.0) pg MCHC (31.0-37.0) g/dL RDW Std Deviation (28.0-62.0) fl RDW Coeff of Jb (11.0-15.0) % Plt Count (150-400) K/uL MPV (7.40-12.00) fL Neut % (Auto) (48.0-80.0) % Lymph % (Auto) (16.0-40.0) % Carlisle % (Auto) (0.0-15.0) % Eos % (Auto) (0.0-7.0) % Baso % (Auto) (0.0-1.5) % Neut # (Auto) (1.4-5.7) K/uL Lymph # (Auto) (0.6-2.4) K/uL Carlisle # (Auto) (0.0-0.8) K/uL Eos # (Auto) (0.0-0.7) K/uL Baso # (Auto) (0.0-0.1) K/uL Sodium 141 (136-146) mmol/L Potassium 4.2 (3.5-5.1) mmol/L Chloride 110 (98-110) mmol/L Carbon Dioxide 25 (21-31) mmol/L BUN 19 (6.0-23.0) mg/dL Creatinine 0.8 (0.6-1.5) mg/dL Est Cr Clr Drug Dosing 71.71 mL/min Estimated GFR (MDRD) > 60.0 ml/min Glucose 89 (60-110) mg/dL POC Glucose 25 L (60-110) mg/dL Calcium 8.9 (8.8-10.8) mg/dL Troponin I < 0.10 (0.0-0.29) NG/ML 03/15/17 Range/Units 07:04 WBC (4.0-11.0) K/uL RBC (4.30-5.90) M/uL Hgb (12.0-16.0) g/dL Hct (36.0-46.0) % MCV (80.0-98.0) fL MCH (27.0-32.0) pg MCHC (31.0-37.0) g/dL RDW Std Deviation (28.0-62.0) fl RDW Coeff of Jb (11.0-15.0) % Plt Count (150-400) K/uL MPV (7.40-12.00) fL Neut % (Auto) (48.0-80.0) % Lymph % (Auto) (16.0-40.0) % Carlisle % (Auto) (0.0-15.0) % Eos % (Auto) (0.0-7.0) % Baso % (Auto) (0.0-1.5) % Neut # (Auto) (1.4-5.7) K/uL Lymph # (Auto) (0.6-2.4) K/uL Carlisle # (Auto) (0.0-0.8) K/uL Eos # (Auto) (0.0-0.7) K/uL Baso # (Auto) (0.0-0.1) K/uL Sodium (136-146) mmol/L Potassium (3.5-5.1) mmol/L Chloride (98-110) mmol/L Carbon Dioxide (21-31) mmol/L BUN (6.0-23.0) mg/dL Creatinine (0.6-1.5) mg/dL Est Cr Clr Drug Dosing mL/min Estimated GFR (MDRD) ml/min Glucose (60-110) mg/dL POC Glucose 126 H (60-110) mg/dL Calcium (8.8-10.8) mg/dL Troponin I (0.0-0.29) NG/ML Med Orders - Current: Current Medications Acetaminophen (Tylenol) 650 mg PO Q4H PRN PRN Reason: Pain (Mild 1-3)/fever Last Admin: 03/15/17 08:13 Dose: 650 mg Dextrose/Water (Dextrose 50% In Water) 50 ml IVPUSH ASDIRECTED PRN PRN Reason: Blood Glucose Last Admin: 03/15/17 06:24 Dose: 50 ml Dextrose/Water (Dextrose 50% In Water) 25 ml IVPUSH ASDIRECTED PRN PRN Reason: Hypoglycemia Enoxaparin Sodium (Lovenox) 40 mg SUBCUT DAILY [facility] Last Admin: 03/15/17 08:10 Dose: 40 mg Insulin Aspart (Novolog) 0 unit SUBCUT TIDAC WEI PRN Reason: Protocol Last Admin: 03/15/17 06:43 Dose: Not Given Lorazepam (Ativan) 0.5 mg PO BID PRN PRN Reason: Anxiety Last Admin: 03/14/17 22:25 Dose: 0.5 mg Morphine Sulfate (Morphine) 2 mg IVPUSH Q2H PRN PRN Reason: Pain (severe 7-10) Stop: 03/15/17 16:15 Last Admin: 03/14/17 18:32 Dose: 2 mg Sodium Chloride (Saline Flush) 10 ml FLUSH ASDIRECTED PRN PRN Reason: Keep Vein Open Last Admin: 03/14/17 14:28 Dose: 10 ml Sodium Chloride (Saline Flush) 2.5 ml FLUSH ASDIRECTED PRN PRN Reason: Keep Vein Open Last Admin: 03/14/17 14:28 Dose: 2.5 ml Discontinued Medications Aspirin (Aspirin) 324 mg PO ONETIME ONE Stop: 03/14/17 13:52 Last Admin: 03/14/17 14:23 Dose: 324 mg Dextrose/Water (Dextrose 50% In Water) 25 ml IVPUSH ONETIME ONE Stop: 03/14/17 19:47 Last Admin: 03/14/17 20:01 Dose: 25 ml Dextrose/Water (Dextrose 50% In Water) 50 ml IVPUSH ONETIME ONE Stop: 03/14/17 22:09 Last Admin: 03/14/17 22:19 Dose: 50 ml Influenza Virus Vaccine (Pharmacy To Dose - Influenza Vaccine) 1 each IM ONETIME ONE Stop: 03/14/17 15:55 Influenza Virus Vaccine (Flulaval Quad [id number]) 60 mcg IM .ONCE ONE Stop: 03/14/17 16:01 Morphine Sulfate (Morphine) 2 mg IVPUSH ONETIME ONE Stop: 03/14/17 15:10 Last Admin: 03/14/17 15:27 Dose: 2 mg Nitroglycerin (Nitrostat) 0.4 mg SL Q5M PRN PRN Reason: Chest Pain Last Admin: 03/14/17 14:35 Dose: 0.4 mg Nitroglycerin (Nitro-Bid 2%) 1 gm TOP ONETIME ONE Stop: 03/14/17 15:10 Last Admin: 03/14/17 15:28 Dose: 1 gm Non-Formulary Medication (Insulin Glargine,Hum.Rec.Anlog [Micah Stevetashalisa]) 74 unit SQ BEDTIME WEI Last Admin: 03/14/17 21:00 Dose: Not Given *Q Meaningful Use (DIS) - VTE *Q VTE Criteria *Q: - Stroke *Q Stroke Criteria *Q: - AMI *Q AMI Criteria *Q: <Ayden Bloom - Last Filed: 03/15/17 13:25> - Patient Data Vitals - Most Recent: Last Vital Signs Temp 36.8 C 03/15/17 12:00 Pulse 77 03/15/17 12:00 Resp 18 03/15/17 12:00 BP 138/68 03/15/17 12:00 Pulse Ox 96 03/15/17 12:00 I&O - Last 24 hours: Intake & Output 03/14/17 03/15/17 03/15/17 22:59 06:59 14:59 Intake Total 0 1044 Output Total 0 575 Balance 0 469 Lab Results - Last 24 hrs: Laboratory Results - last 24 hr 03/14/17 03/14/17 03/14/17 Range/Units 16:33 19:37 20:07 WBC (4.0-11.0) K/uL RBC (4.30-5.90) M/uL Hgb (12.0-16.0) g/dL Hct (36.0-46.0) % MCV (80.0-98.0) fL MCH (27.0-32.0) pg MCHC (31.0-37.0) g/dL RDW Std Deviation (28.0-62.0) fl RDW Coeff of Jb (11.0-15.0) % Plt Count (150-400) K/uL MPV (7.40-12.00) fL Neut % (Auto) (48.0-80.0) % Lymph % (Auto) (16.0-40.0) % Carlisle % (Auto) (0.0-15.0) % Eos % (Auto) (0.0-7.0) % Baso % (Auto) (0.0-1.5) % Neut # (Auto) (1.4-5.7) K/uL Lymph # (Auto) (0.6-2.4) K/uL Carl[place] # (Auto) (0.0-0.8) K/uL Eos # (Auto) (0.0-0.7) K/uL Baso # (Auto) (0.0-0.1) K/uL Sodium (136-146) mmol/L Potassium (3.5-5.1) mmol/L Chloride (98-110) mmol/L Carbon Dioxide (21-31) mmol/L BUN (6.0-23.0) mg/dL Creatinine (0.6-1.5) mg/dL Est Cr Clr Drug Dosing mL/min Estimated GFR (MDRD) ml/min Glucose (60-110) mg/dL POC Glucose 89 26 L (60-110) mg/dL Calcium (8.8-10.8) mg/dL Troponin I < 0.10 (0.0-0.29) NG/ML 03/14/17 03/14/17 03/15/17 Range/Units 22:00 23:51 01:56 WBC 10.58 (4.0-11.0) K/uL RBC 4.02 L (4.30-5.90) M/uL Hgb 12.3 (12.0-16.0) g/dL Hct 37.6 (36.0-46.0) % MCV 93.5 (80.0-98.0) fL MCH 30.6 (27.0-32.0) pg MCHC 32.7 (31.0-37.0) g/dL RDW Std Deviation 46.4 (28.0-62.0) fl RDW Coeff of Jb 14 (11.0-15.0) % Plt Count 223 (150-400) K/uL MPV 10.80 (7.40-12.00) fL Neut % (Auto) 55.9 (48.0-80.0) % Lymph % (Auto) 30.6 (16.0-40.0) % Carlisle % (Auto) 9.2 (0.0-15.0) % Eos % (Auto) 3.9 (0.0-7.0) % Baso % (Auto) 0.4 (0.0-1.5) % Neut # (Auto) 5.9 H (1.4-5.7) K/uL Lymph # (Auto) 3.2 H (0.6-2.4) K/uL Carlisle # (Auto) 1.0 H (0.0-0.8) K/uL Eos # (Auto) 0.4 (0.0-0.7) K/uL Baso # (Auto) 0.0 (0.0-0.1) K/uL Sodium (136-146) mmol/L Potassium (3.5-5.1) mmol/L Chloride (98-110) mmol/L Carbon Dioxide (21-31) mmol/L BUN (6.0-23.0) mg/dL Creatinine (0.6-1.5) mg/dL Est Cr Clr Drug Dosing mL/min Estimated GFR (MDRD) ml/min Glucose (60-110) mg/dL POC Glucose 46 L 128 H (60-110) mg/dL Calcium (8.8-10.8) mg/dL Troponin I (0.0-0.29) NG/ML 03/15/17 03/15/17 03/15/17 Range/Units 01:56 01:56 06:21 WBC (4.0-11.0) K/uL RBC (4.30-5.90) M/uL Hgb (12.0-16.0) g/dL Hct (36.0-46.0) % MCV (80.0-98.0) fL MCH (27.0-32.0) pg MCHC (31.0-37.0) g/dL RDW Std Deviation (28.0-62.0) fl RDW Coeff of Jb (11.0-15.0) % Plt Count (150-400) K/uL MPV (7.40-12.00) fL Neut % (Auto) (48.0-80.0) % Lymph % (Auto) (16.0-40.0) % [place] % (Auto) (0.0-15.0) % Eos % (Auto) (0.0-7.0) % Baso % (Auto) (0.0-1.5) % Neut # (Auto) (1.4-5.7) K/uL Lymph # (Auto) (0.6-2.4) K/uL [place] # (Auto) (0.0-0.8) K/uL Eos # (Auto) (0.0-0.7) K/uL Baso # (Auto) (0.0-0.1) K/uL Sodium 141 (136-146) mmol/L Potassium 4.2 (3.5-5.1) mmol/L Chloride 110 (98-110) mmol/L Carbon Dioxide 25 (21-31) mmol/L BUN 19 (6.0-23.0) mg/dL Creatinine 0.8 (0.6-1.5) mg/dL Est Cr Clr Drug Dosing 71.71 mL/min Estimated GFR (MDRD) > 60.0 ml/min Glucose 89 (60-110) mg/dL POC Glucose 25 L (60-110) mg/dL Calcium 8.9 (8.8-10.8) mg/dL Troponin I < 0.10 (0.0-0.29) NG/ML 03/15/17 Range/Units 07:04 WBC (4.0-11.0) K/uL RBC (4.30-5.90) M/uL Hgb (12.0-16.0) g/dL Hct (36.0-46.0) % MCV (80.0-98.0) fL MCH (27.0-32.0) pg MCHC (31.0-37.0) g/dL RDW Std Deviation (28.0-62.0) fl RDW Coeff of Jb (11.0-15.0) % Plt Count (150-400) K/uL MPV (7.40-12.00) fL Neut % (Auto) (48.0-80.0) % Lymph % (Auto) (16.0-40.0) % [place] % (Auto) (0.0-15.0) % Eos % (Auto) (0.0-7.0) % Baso % (Auto) (0.0-1.5) % Neut # (Auto) (1.4-5.7) K/uL Lymph # (Auto) (0.6-2.4) K/uL [place] # (Auto) (0.0-0.8) K/uL Eos # (Auto) (0.0-0.7) K/uL Baso # (Auto) (0.0-0.1) K/uL Sodium (136-146) mmol/L Potassium (3.5-5.1) mmol/L Chloride (98-110) mmol/L Carbon Dioxide (21-31) mmol/L BUN (6.0-23.0) mg/dL Creatinine (0.6-1.5) mg/dL Est Cr Clr Drug Dosing mL/min Estimated GFR (MDRD) ml/min Glucose (60-110) mg/dL POC Glucose 126 H (60-110) mg/dL Calcium (8.8-10.8) mg/dL Troponin I (0.0-0.29) NG/ML Med Orders - Current: Current Medications Acetaminophen (Tylenol) 650 mg PO Q4H PRN PRN Reason: Pain (Mild 1-3)/fever Last Admin: 03/15/17 08:13 Dose: 650 mg Dextrose/Water (Dextrose 50% In Water) 50 ml IVPUSH ASDIRECTED PRN PRN Reason: Blood Glucose Last Admin: 03/15/17 11:37 Dose: 50 ml Dextrose/Water (Dextrose 50% In Water) 25 ml IVPUSH ASDIRECTED PRN PRN Reason: Hypoglycemia Enoxaparin Sodium (Lovenox) 40 mg SUBCUT DAILY [facility] Last Admin: 03/15/17 08:10 Dose: 40 mg Insulin Aspart (Novolog) 0 unit SUBCUT TIDAC [facility] PRN Reason: Protocol Last Admin: 03/15/17 12:11 Dose: Not Given Lorazepam (Ativan) 0.5 mg PO BID PRN PRN Reason: Anxiety Last Admin: 03/14/17 22:25 Dose: 0.5 mg Morphine Sulfate (Morphine) 2 mg IVPUSH Q2H PRN PRN Reason: Pain (severe 7-10) Stop: 03/15/17 16:15 Last Admin: 03/14/17 18:32 Dose: 2 mg Sodium Chloride (Saline Flush) 10 ml FLUSH ASDIRECTED PRN PRN Reason: Keep Vein Open Last Admin: 03/14/17 14:28 Dose: 10 ml Sodium Chloride (Saline Flush) 2.5 ml FLUSH ASDIRECTED PRN PRN Reason: Keep Vein Open Last Admin: 03/14/17 14:28 Dose: 2.5 ml Discontinued Medications Aspirin (Aspirin) 324 mg PO ONETIME ONE Stop: 03/14/17 13:52 Last Admin: 03/14/17 14:23 Dose: 324 mg Dextrose/Water (Dextrose 50% In Water) 25 ml IVPUSH ONETIME ONE Stop: 03/14/17 19:47 Last Admin: 03/14/17 20:01 Dose: 25 ml Dextrose/Water (Dextrose 50% In Water) 50 ml IVPUSH ONETIME ONE Stop: 03/14/17 22:09 Last Admin: 03/14/17 22:19 Dose: 50 ml Influenza Virus Vaccine (Pharmacy To Dose - Influenza Vaccine) 1 each IM ONETIME ONE Stop: 03/14/17 15:55 Influenza Virus Vaccine (Flulaval Quad [id number]) 60 mcg IM .ONCE ONE Stop: 03/14/17 16:01 Last Admin: 03/15/17 12:33 Dose: 60 mcg Morphine Sulfate (Morphine) 2 mg IVPUSH ONETIME ONE Stop: 03/14/17 15:10 Last Admin: 03/14/17 15:27 Dose: 2 mg Nitroglycerin (Nitrostat) 0.4 mg SL Q5M PRN PRN Reason: Chest Pain Last Admin: 03/14/17 14:35 Dose: 0.4 mg Nitroglycerin (Nitro-Bid 2%) 1 gm TOP ONETIME ONE Stop: 03/14/17 15:10 Last Admin: 03/14/17 15:28 Dose: 1 gm Non-Formulary Medication (Insulin Glargine,Hum.Rec.Anlog [Micah Chapman]) 74 unit SQ BEDTIME WEI Last Admin: 03/14/17 21:00 Dose: Not Given *Q Meaningful Use (DIS) - VTE *Q VTE Criteria *Q: - Stroke *Q Stroke Criteria *Q: - AMI *Q AMI Criteria *Q: - Free Text/Narrative Note: I have examined this patient and her data this morning. She indicated that she wanted to be discharged. I have had a long discussion with her regarding that she had had significant hypoglycemia on her present insulin dosing from not eating enough and she verified that she was not eating much because of her marital emotional upset. She is in the process of from her . I enquired about her diabetic history and she stated that she has been on an insulin pump in the past but that she lost health insurance and could not afford to continue it until getting her present job and re-instating health coverage. But then her had told her that he did not like her appearance with wearing the insulin pump. She was recorded with some severely low blood sugars over the past 24 hours which did not appear to make her have hypoglycemic symptoms but had motivated me to order D50 boluses. After eating a meal this morning, she was found to have a glucose of 36 and was given D50 again. I then became suspicious that the glucometer reading was spurious and had another reading done with a second glucometer at the same time from blood from the same puncture. The ramires glucometer was 20 points lower than the 2nd glucometer. With the D50, her glucose was now in the low 200's . 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 Hubbard, her PCP. I informed her of the new [employer]onic 670-G CGM meter with glucose monitoring which may be better for her situation. Because of her emotional upset, she asked for Ativan to go home with. I warned her that it could be habit forming and if Dr. Munroe prescribed it, it would be for short term. I discussed her condition with Dr. Munroe and I concur with his note and plan.
[2017-03-15 12:32] VITALS: BP 138/68
--- NOTE | 2017-03-16 11:20 | CR ---
EXAM DATE: 03/14/17 PATIENT'S AGE: 42 Patient: CHEY GANN Facility: [place], [place] Site . Site : 1975 Study: XRay Chest [id number] 2:29:53 PM Ordering Physician: Doctor Hale Final Report: INDICATION: Pain FINDINGS: A portable AP view of the chest were obtained. The cardiac silhouette and pulmonary vasculature are within normal limits. The lungs are clear bilaterally. IMPRESSION: No evidence of acute pulmonary disease. Dictated by: Harinder Roth MD @ 03/14/2017 15:08:23 (Electronic Signature) Report Signed by Proxy. ZAK
== END 2017-03-15 13:10 | disposition home or self-care (01) ==
LOC: MW.ED 13:39 → MW.MS 15:14
PROVIDERS: ADMIT Family Medicine; ATTEND Family Medicine
DX: R07.89 Other chest pain (principal); E10.649 Type 1 diabetes mellitus with hypoglycemia without coma; I10 Essential (primary) hypertension; E78.5 Hyperlipidemia, unspecified; F17.210 Nicotine dependence, cigarettes, uncomplicated; Z79.4 Long term (current) use of insulin; Z79.899 Other long term (current) drug therapy; Z90.49 Acquired absence of other specified parts of digestive tract; Z98.890 Other specified postprocedural states
CPT/HCPCS: 36415; 71010; 80048; 80053; 82962; 84484; 85025; 85379; 93005; 96372; 96374; 96375; 96376; 99285; A9270; G0008; G0378; J1650; J2270; J7060; 90686; 99283

== ENCOUNTER 2017-04-11 10:11 | Observation (INO) | payer OTHER ==
[2017-04-11] MEDS ORDERED: Sodium Chloride 0.9% 2.5 ML Syringe FLUSH PRN (10:23)
[2017-04-11] MEDS ORDERED: Sodium Chloride 0.9% 10 ML Syringe FLUSH PRN (10:23)
[2017-04-11] MEDS ORDERED: Sodium Chloride 0.9% 1,000 ML IV ONE (10:23)
--- NOTE | 2017-04-11 10:27 | EDM.PDOC ---
ED HPI GENERAL MEDICAL PROBLEM - General Chief Complaint: Diabetic Complaint Stated Complaint: AMBULANCE Time Seen by Provider: 04/11/17 10:15 - History of Present Illness INITIAL COMMENTS - FREE TEXT/NARRATIVE: HISTORY AND PHYSICAL: History of present illness: The patient is a 42-year-old female with a history of insulin requiring diabetes hypercholesterolemia and hypertension who follows with Dr. Bran Jordan at [facility] and presents with EMS for low blood sugar. The patient says she took her normal doses of insulin yesterday including her evening dose and has not had issues with eating abdominal pain vomiting diarrhea. Patient says she thinks she might of had a UTI for the last couple of days she's not been drinking much fluids due to personal choice. She's had no upper respiratory tract infections chest pain or shortness of breath. Patient said that when she woke she knew that her blood sugar was low and she slid off the bed but did not fall from her own height. She says she doesn't have recall of some of the time before the ambulance arrived. On their arrival her blood sugar was 58 and the gave her oral glucose the repeat was 41 and they gave her IV dextrose and currently is 110s. Patient currently feels back at her baseline and is moving all extremities and does not feel any focal weakness. She has no headache or any other systemic complaints currently. She says that nothing is changing her medication regimen or with her diet so she is unsure why this happened. She has recently been seen by Dr. Silva and had a stress test which I reviewed; she currently has no chest pain Review of systems: As per history of present illness and below otherwise all systems reviewed and negative. Past medical history: As per history of present illness and as reviewed below otherwise noncontributory. Surgical history: As per history of present illness and as reviewed below otherwise noncontributory. Social history: No reported history of drug or alcohol abuse. Family history: As per history of present illness and as reviewed below otherwise noncontributory. Physical exam: Gen.: Well-developed well-nourished female who moves easily in the ER and transfers without assistance and is speaking clearly and easily. Vital signs of been reviewed by me. HEENT: Atraumatic, normocephalic, pupils reactive, negative for conjunctival pallor or scleral icterus, mucous membranes moist, throat clear, neck supple, nontender, trachea midline. There are no midline step-offs in his defects of the cervical spine no scalp tenderness or deformities. Lungs: Clear to auscultation, breath sounds equal bilaterally, chest nontender. Heart: S1S2, regular, negative for clicks, rubs, or JVD. Abdomen: Soft, nondistended, nontender. Negative for masses or hepatosplenomegaly. Negative for costovertebral tenderness. Pelvis: Stable nontender. 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: Deferred. Rectal: Deferred. Extremities: Atraumatic, negative for cords or calf pain. Neurovascular unremarkable. Full range of motion without defects or deficits Neuro: Awake, alert, oriented. Cranial nerves II through XII unremarkable. Cerebellum unremarkable. Motor and sensory unremarkable throughout. Exam nonfocal. Back: There are no midline step-offs tenderness or defects of the thoracic or lumbar spine no posterior rib or posterior pelvis tenderness. Skin: There is no diaphoresis no evidence of any rashes or lesions and no soft tissue evidence of any trauma such as ecchymosis bruising or abrasions. Diagnostics: Accu-Cheks, EKG, CT scan of the head, CBC CMP troponin UA and chest x-ray urine culture Therapeutics: IV O2 monitor IV fluids Levaquin 1205: Case was discussed with our hospitalist ; he accepts the patient for observation admission for serial Accu-Cheks and management of the UTI. I discussed all testing results with the patient and family at bedside and have offered them either this admission or discharge and she feels very nervous as this hypoglycemia has not happened in a long time and she is concerned. She would prefer to stay. The hospitalist agrees with this care plan Impression: Hypoglycemia, UTI Definitive disposition and diagnosis as appropriate pending reevaluation and review of above. - Related Data Allergies Allergy/AdvReac Type Severity Reaction Status Date / Time No Known Allergies Allergy Verified 04/11/17 10:17 Home Meds: Home Meds Insulin Aspart [Novolog Flexpen] 5 units SQ BIDAC 04/25/14 [History] Lisinopril 10 mg PO DAILY 03/31/15 [History] Insulin Glargine,Hum.Rec.Anlog [Toujeo Solostar] 74 unit SQ BEDTIME 03/14/17 [ History] Omeprazole Magnesium [Prilosec Otc] 20 mg PO DAILY 03/14/17 [History] Venlafaxine HCl [Venlafaxine ER] 75 mg PO 03/14/17 [History] atorvaSTATin [Lipitor] 10 mg PO DAILY 03/14/17 [History] Past Medical History - Past Health History Medical/Surgical History: Denies Medical/Surgical History Cardiovascular History: Reports: Hypertension, Other (See Below) Other Cardiovascular History: PVCs Gastrointestinal History: Reports: Other (See Below) Other Gastrointestinal History: Indigestion 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 History: Reports: Renal 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: Psychiatric History: Reports: Anxiety, Depression Endocrine/Metabolic History: Reports: Diabetes, Type I Dermatologic History: Reports: None - Infectious Disease History Infectious Disease History: Reports: Chicken Pox - Past Surgical History GI Surgical History: Reports: Cholecystectomy Female Surgical History: Reports: Section Dermatological Surgical History: Reports: None Social & Family History - Family History Family Medical History: Noncontributory Cardiac: Reports: Hypertension, [place] Other Cardiac Family History: Grandparents had heart failure 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: Reports: Other (See Below) Other 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 Family History: Mother had MS Endocrine/Metabolic: Reports: Other (See Below) Other Endocrine/Metabolic Family History: Father "had thyroid problems." - Tobacco Use Smoking Status *Q: Current Every Day Smoker Years of Tobacco use: 20 Packs/Tins Daily: 0.5 Used Tobacco, but Quit: No Second Hand Smoke Exposure: No - Caffeine Use Caffeine Use: Reports: Soda - Recreational Drug Use Recreational Drug Use: No ED ROS GENERAL - Review of Systems Review Of Systems: ROS reveals no pertinent complaints other than HPI. ED EXAM GENERAL NO PERIP PULSE - Physical Exam Exam: See Below Course - Vital Signs Last Recorded V/S: Last Vital Signs Temp 35.9 C 04/11/17 10:13 Pulse 85 04/11/17 11:44 Resp 16 04/11/17 10:13 BP 146/71 H 04/11/17 11:44 Pulse Ox 98 04/11/17 11:44 - Orders/Labs/Meds Orders: Active Orders 24 hr Category Date Time Status Patient Status [ADT] Stat ADT 04/11/17 12:07 Ordered Cardiac Monitoring [RC] . DIRECTED Care 04/11/17 10:22 Active EKG Documentation Completion [RC] STAT Care 04/11/17 10:22 Active Oxygen Therapy, ED [RC] ASDIRECTED Care 04/11/17 10:22 Active Pulse Oximetry [RC] ASDIRECTED Care 04/11/17 10:22 Active Chest 1V Frontal [CR] Stat Exams 04/11/17 10:23 Taken Head wo Cont [CT] Stat Exams 04/11/17 10:23 Taken CULTURE URINE [RM] Stat Lab 04/11/17 10:19 Received Sodium Chloride 0.9% [Saline Flush] Med 04/11/17 10:23 Active 10 ml FLUSH ASDIRECTED PRN Sodium Chloride 0.9% [Saline Flush] Med 04/11/17 10:23 Active 2.5 ml FLUSH ASDIRECTED PRN Saline Lock Insert [OM.PC] Stat Oth 04/11/17 10:22 Ordered Medication Orders Sodium Chloride (Saline Flush) 10 ml FLUSH ASDIRECTED PRN PRN Reason: Keep Vein Open Last Admin: 04/11/17 10:32 Dose: 10 ml Sodium Chloride (Saline Flush) 2.5 ml FLUSH ASDIRECTED PRN PRN Reason: Keep Vein Open Last Admin: 04/11/17 10:33 Dose: 2.5 ml Labs: Laboratory Tests 04/11/17 04/11/17 04/11/17 Range/Units 10:19 10:37 10:37 WBC 12.03 H (4.0-11.0) K/uL RBC 4.70 (4.30-5.90) M/uL Hgb 14.5 (12.0-16.0) g/dL Hct 43.6 (36.0-46.0) % MCV 92.8 (80.0-98.0) fL MCH 30.9 (27.0-32.0) pg MCHC 33.3 (31.0-37.0) g/dL RDW Std Deviation 49.0 (28.0-62.0) fl RDW Coeff of Jb 14 (11.0-15.0) % Plt Count 268 (150-400) K/uL MPV 11.30 (7.40-12.00) fL Neut % (Auto) 83.2 H (48.0-80.0) % Lymph % (Auto) 11.0 L (16.0-40.0) % [place] % (Auto) 5.2 (0.0-15.0) % Eos % (Auto) 0.2 (0.0-7.0) % Baso % (Auto) 0.4 (0.0-1.5) % Neut # (Auto) 10.0 H (1.4-5.7) K/uL Lymph # (Auto) 1.3 (0.6-2.4) K/uL [place] # (Auto) 0.6 (0.0-0.8) K/uL Eos # (Auto) 0.0 (0.0-0.7) K/uL Baso # (Auto) 0.1 (0.0-0.1) K/uL Nucleated RBC % 0.0 /100WBC Nucleated RBCs # 0 K/uL Sodium 139 (136-146) mmol/L Potassium 3.8 (3.5-5.1) mmol/L Chloride 106 (98-110) mmol/L Carbon Dioxide 25 (21-31) mmol/L BUN 14 (6.0-23.0) mg/dL Creatinine 0.8 (0.6-1.5) mg/dL Est Cr Clr Drug Dosing 75.01 mL/min Estimated GFR (MDRD) > 60.0 ml/min Glucose 219 H (60-110) mg/dL POC Glucose (60-110) mg/dL Calcium 9.0 (8.8-10.8) mg/dL Total Bilirubin 0.3 (0.1-1.5) mg/dL AST 22 (5-40) IU/L ALT 18 (8-54) IU/L Alkaline Phosphatase 86 (40-150) Troponin I < 0.10 (0.0-0.29) NG/ML Total Protein 7.4 (6.0-8.0) g/dL Albumin 4.1 (3.5-5.0) g/dL Globulin 3.3 (2.0-3.5) g/dL Albumin/Globulin Ratio 1.2 L (1.3-2.8) Urine Color YELLOW Urine Appearance SLT CLOUDY Urine pH 6.0 (5.0-8.0) Ur Specific [place] 1.015 (1.001-1.035) Urine Protein TRACE (NEGATIVE) mg/dL Urine Glucose (UA) NEGATIVE (NEGATIVE) mg/dL Urine Ketones NEGATIVE (NEGATIVE) mg/dL Urine Occult Blood LARGE H (NEGATIVE) Urine Nitrite NEGATIVE (NEGATIVE) Urine Bilirubin NEGATIVE (NEGATIVE) Urine Urobilinogen 0.2 (<2.0) EU/dL Ur Leukocyte Esterase NEGATIVE (NEGATIVE) Urine RBC 6-8 (0-2/HPF) Urine WBC 2-3 (0-5/HPF) Ur Epithelial Cells MODERATE (NONE-FEW) Urine Bacteria 3+ H (NEGATIVE) Urine Mucus MODERATE (NONE-MOD) 04/11/17 04/11/17 Range/Units 11:25 12:41 WBC (4.0-11.0) K/uL RBC (4.30-5.90) M/uL Hgb (12.0-16.0) g/dL Hct (36.0-46.0) % MCV (80.0-98.0) fL MCH (27.0-32.0) pg MCHC (31.0-37.0) g/dL RDW Std Deviation (28.0-62.0) fl RDW Coeff of Jb (11.0-15.0) % Plt Count (150-400) K/uL MPV (7.40-12.00) fL Neut % (Auto) (48.0-80.0) % Lymph % (Auto) (16.0-40.0) % [place] % (Auto) (0.0-15.0) % Eos % (Auto) (0.0-7.0) % Baso % (Auto) (0.0-1.5) % Neut # (Auto) (1.4-5.7) K/uL Lymph # (Auto) (0.6-2.4) K/uL [place] # (Auto) (0.0-0.8) K/uL Eos # (Auto) (0.0-0.7) K/uL Baso # (Auto) (0.0-0.1) K/uL Nucleated RBC % /100WBC Nucleated RBCs # K/uL Sodium (136-146) mmol/L Potassium (3.5-5.1) mmol/L Chloride (98-110) mmol/L Carbon Dioxide (21-31) mmol/L BUN (6.0-23.0) mg/dL Creatinine (0.6-1.5) mg/dL Est Cr Clr Drug Dosing mL/min Estimated GFR (MDRD) ml/min Glucose (60-110) mg/dL POC Glucose 196 H 136 H (60-110) mg/dL Calcium (8.8-10.8) mg/dL Total Bilirubin (0.1-1.5) mg/dL AST (5-40) IU/L ALT (8-54) IU/L Alkaline Phosphatase (40-150) Troponin I (0.0-0.29) NG/ML Total Protein (6.0-8.0) g/dL Albumin (3.5-5.0) g/dL Globulin (2.0-3.5) g/dL Albumin/Globulin Ratio (1.3-2.8) Urine Color Urine Appearance Urine pH (5.0-8.0) Ur Specific [place] (1.001-1.035) Urine Protein (NEGATIVE) mg/dL Urine Glucose (UA) (NEGATIVE) mg/dL Urine Ketones (NEGATIVE) mg/dL Urine Occult Blood (NEGATIVE) Urine Nitrite (NEGATIVE) Urine Bilirubin (NEGATIVE) Urine Urobilinogen (<2.0) EU/dL Ur Leukocyte Esterase (NEGATIVE) Urine RBC (0-2/HPF) Urine WBC (0-5/HPF) Ur Epithelial Cells (NONE-FEW) Urine Bacteria (NEGATIVE) Urine Mucus (NONE-MOD) Meds: Medications Generic Name Dose Route Start Last Admin Trade Name Fred[place]in PRN Reason Stop Dose Admin Sodium Chloride 10 ml 04/11/17 10:23 04/11/17 10:32 Saline Flush FLUSH 10 ml ASDIRECTED PRN Administration Keep Vein Open Sodium Chloride 2.5 ml 04/11/17 10:23 04/11/17 10:33 Saline Flush FLUSH 2.5 ml ASDIRECTED PRN Administration Keep Vein Open Discontinued Medications Generic Name Dose Route Start Last Admin Trade Name Freq PRN Reason Stop Dose Admin Sodium Chloride 1,000 mls @ 999 mls/hr 04/11/17 10:23 04/11/17 10:32 Normal Saline IV 04/11/17 11:23 999 mls/hr STAT ONE Administration Ceftriaxone Sodium/Dextrose 1 50 mls @ 100 mls/hr 04/11/17 11:11 04/11/17 11: 27 gm/ Premix IV 04/11/17 11:40 100 mls/hr ONETIME ONE Administration Departure - Departure Time of Disposition: 12:09 Disposition: Refer to Observation Condition: Good Clinical Impression: Hypoglycemia UTI (urinary tract infection) Qualifiers: Urinary tract infection type: site unspecified Hematuria presence: without hematuria Qualified Code(s): N39.0 - Urinary tract infection, site not specified - Discharge Information Forms: ED Department Discharge - My Orders Last 24 Hours: My Active Orders 04/11/17 10:19 CULTURE URINE [RM] Stat 04/11/17 10:22 Cardiac Monitoring [RC] . DIRECTED EKG Documentation Completion [RC] STAT Oxygen Therapy, ED [RC] ASDIRECTED Pulse Oximetry [RC] ASDIRECTED Saline Lock Insert [OM.PC] Stat 04/11/17 10:23 Chest 1V Frontal [CR] Stat Head wo Cont [CT] Stat Sodium Chloride 0.9% [Saline Flush] 10 ml FLUSH ASDIRECTED PRN Sodium Chloride 0.9% [Saline Flush] 2.5 ml FLUSH ASDIRECTED PRN 04/11/17 12:07 Patient Status [ADT] Stat - Assessment/Plan Last 24 Hours: My Active Orders 04/11/17 10:19 CULTURE URINE [RM] Stat 04/11/17 10:22 Cardiac Monitoring [RC] . DIRECTED EKG Documentation Completion [RC] STAT Oxygen Therapy, ED [RC] ASDIRECTED Pulse Oximetry [RC] ASDIRECTED Saline Lock Insert [OM.PC] Stat 04/11/17 10:23 Chest 1V Frontal [CR] Stat Head wo Cont [CT] Stat Sodium Chloride 0.9% [Saline Flush] 10 ml FLUSH ASDIRECTED PRN Sodium Chloride 0.9% [Saline Flush] 2.5 ml FLUSH ASDIRECTED PRN 04/11/17 12:07 Patient Status [ADT] Stat
[2017-04-11 11:08] LABS: CHLORIDE,CL 106 mmol/L (98-110); SODIUM,NA 139 mmol/L (136-146)
[2017-04-11] MEDS ORDERED: cefTRIAXone 1 GM in Premix Bag 1 BAG IV ONE (11:11)
[2017-04-11] MEDS ORDERED: Ketorolac 30 MG/ML SDV IVPUSH ONE (12:26)
--- NOTE | 2017-04-11 13:35 | PCM.HP ---
H&P History of Present Illness - General Date of Service: 04/11/17 Source of Information: Patient, Provider - History of Present Illness Initial Comments - Free Text/Narative: She was seen in the emergency room today. She had been confused this morning and was noted to have a low blood sugar. Her blood sugar improved in the emergency room but Dr Marino recommended hospital observation for stabilization. She notes bilateral calf tenderness. Bilateral Lower Leg Pain Score (Numeric/FACES): 8 - Related Data Allergies/Adverse Reactions: Allergies Allergy/AdvReac Type Severity Reaction Status Date / Time No Known Allergies Allergy Verified 04/11/17 10:17 Home Medications: Home Meds Insulin Aspart [Novolog Flexpen] 5 units SQ BIDAC 04/25/14 [History] Lisinopril 10 mg PO DAILY 03/31/15 [History] Insulin Glargine,Hum.Rec.Anlog [Toujeo Solostar] 74 unit SQ BEDTIME 03/14/17 [ History] Omeprazole Magnesium [Prilosec Otc] 20 mg PO DAILY 03/14/17 [History] Venlafaxine HCl [Venlafaxine ER] 75 mg PO 03/14/17 [History] atorvaSTATin [Lipitor] 10 mg PO DAILY 03/14/17 [History] Past Medical History - Past Health History Medical/Surgical History: Denies Medical/Surgical History Cardiovascular History: Reports: Hypertension, Other (See Below). Denies: CAD, Heart Failure Other Cardiovascular History: PVCs Respiratory History: Denies: COPD Gastrointestinal History: Reports: Other (See Below) Other Gastrointestinal History: Indigestion 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 History: Reports: Renal Disease. 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: Neurological History: Denies: CVA Psychiatric History: Reports: Anxiety, Depression Endocrine/Metabolic History: Reports: Diabetes, Type I Immunologic History: Denies: Immunosuppression Dermatologic History: Reports: None - Infectious Disease History Infectious Disease History: Reports: Chicken Pox - Past Surgical History Dermatological Surgical History: Reports: None Social & Family History - Family History Family Medical History: Noncontributory Cardiac: Reports: Hypertension, [place] Other Cardiac Family History: Grandparents had heart failure 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: Reports: Other (See Below) Other 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 Family History: Mother had MS Endocrine/Metabolic: Reports: Other (See Below) Other Endocrine/Metabolic Family History: Father "had thyroid problems." - Tobacco Use Smoking Status *Q: Current Every Day Smoker Years of Tobacco use: 20 Packs/Tins Daily: 0.5 Used Tobacco, but Quit: No Second Hand Smoke Exposure: Yes - Caffeine Use Caffeine Use: Reports: Soda, Tea - Alcohol Use Days Per Week of Alcohol Use: 1 Number of Drinks Per Day: 1 Total Drinks Per Week: 1 Date of Last Drink: 04/10/17 - Recreational Drug Use Recreational Drug Use: No H&P Review of Systems - Review of Systems: Review Of Systems: See Below General: Denies: Fever, Chills Pulmonary: Denies: Shortness of Breath, Wheezing, Cough, Sputum, Hemoptysis Cardiovascular: Denies: Chest Pain, Edema Gastrointestinal: Denies: Black Stool, Bloody Stool, Difficulty Swallowing, Hematemesis, Melena 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: Reports: Other (slight feeling that a UTI is coming on. She has a prior history of UTI) 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: Reports: Other (bilateral calf pain) Psychiatric: Reports: Confusion (now resolved.) Exam - Exam Exam: See Below - Vital Signs Vital Signs: Last Vital Signs Temp 96.6 F 04/11/17 10:13 Pulse 89 04/11/17 12:40 Resp 18 04/11/17 12:40 BP 140/52 L 04/11/17 12:40 Pulse Ox 98 04/11/17 12:40 Weight: 84.867 kg - Exam General: Alert, Oriented, Cooperative HEENT: EOMI, Mucosa Moist & [place] Neck: Supple Lungs: Clear to Auscultation, Normal Respiratory Effort Cardiovascular: Regular Rate, Regular Rhythm GI/Abdominal Exam: Soft, Non-Tender (Female) Exam: Deferred Rectal (Female) Exam: Deferred Extremities: No Pedal Edema, Other (moderate bilateral posterior calf tenderness without swelling ; no medial lower leg tenderness) Neurological: Cranial Nerves Intact, Normal Speech Neuro Extensive - Motor, Sensory, Reflexes: No: Facial palsy (L), Facial Palsy ( R) Psychiatric: Normal Mood. No: Depressed, Agitated - Patient Data Lab Results Last 24 hrs: Laboratory Results - last 24 hr 04/11/17 Range/Units 12:41 POC Glucose 136 H (60-110) mg/dL Result Diagrams: 04/11/17 10:37 04/11/17 10:37 *Q Meaningful Use (ADM) - VTE *Q VTE Criteria *Q: - Stroke *Q Stroke Criteria *Q: - AMI *Q AMI Criteria *Q: - Problem List (1) Hypoglycemia SNOMED Code(s): 200927137 ICD Code: E16.2 - HYPOGLYCEMIA, UNSPECIFIED Status: Acute Current Visit: Yes (2) UTI (urinary tract infection) SNOMED Code(s): 66063284 ICD Code: N39.0 - URINARY TRACT INFECTION, SITE NOT SPECIFIED Status: Acute Current Visit: Yes Qualifiers: Urinary tract infection type: site unspecified Hematuria presence: without hematuria Qualified Code(s): N39.0 - Urinary tract infection, site not specified (3) Myalgia SNOMED Code(s): 28007651 ICD Code: M79.1 - MYALGIA Status: Acute Current Visit: Yes Problem List Initiated/Reviewed/Updated: Yes Orders Last 24hrs: Medication Orders Sodium Chloride (Saline Flush) 10 ml FLUSH ASDIRECTED PRN PRN Reason: Keep Vein Open Last Admin: 04/11/17 10:32 Dose: 10 ml Sodium Chloride (Saline Flush) 2.5 ml FLUSH ASDIRECTED PRN PRN Reason: Keep Vein Open Last Admin: 04/11/17 10:33 Dose: 2.5 ml Assessment/Plan Comment:: check CK level hold statin watch blood sugars antibiotics for suspected UTI no DVT prophylaxis as she has a urinary tract bleeding no SCDs because of calf tenderness Kushal Bower MD
[2017-04-11] MEDS ORDERED: Temazepam 15 MG Cap PO PRN (13:43)
[2017-04-11] MEDS ORDERED: Bisacodyl 5 MG Tab PO PRN (13:43)
[2017-04-11] MEDS ORDERED: Acetaminophen 325 MG Tab PO PRN (13:43)
[2017-04-11] MEDS ORDERED: Ketorolac 30 MG/ML SDV IVPUSH PRN (17:09)
[2017-04-11] MEDS ORDERED: Cetirizine 10 MG Tab PO PRN (17:11)
[2017-04-11] MEDS: Morphine 10 MG/ML Syringe IVPUSH PRN (20:16)
[2017-04-11] MEDS: Sulfamethoxazole/Trimethoprim 800-160 MG Tab PO SCH (20:17)
[2017-04-11] MEDS ORDERED: TOUJEO INSULIN 300 UNIT/ML SQ SCH (21:00)
[2017-04-11] MEDS ORDERED: Insulin Glargine,Human Rec. Analog 100 Units/ML 3 ML Pen SUBCUT SCH (21:00)
[2017-04-12 06:27] LABS: CHLORIDE,CL 110 mmol/L (98-110); SODIUM,NA 141 mmol/L (136-146)
[2017-04-12] MEDS: Omeprazole 20 MG Cap.CR PO SCH (06:30)
[2017-04-12] MEDS ORDERED: TOUJEO INSULIN 300 UNIT/ML SQ SCH (08:25)
[2017-04-12] MEDS ORDERED: TOUJEO INSULIN 300 UNIT/ML SUBCUT SCH (08:26)
[2017-04-12] MEDS: Lisinopril 10 MG Tab PO SCH (08:41)
[2017-04-12] MEDS: Sulfamethoxazole/Trimethoprim 800-160 MG Tab PO SCH ×2 (08:42→20:57)
[2017-04-12] MEDS ORDERED: Venlafaxine 75 MG Cap.ER PO SCH (09:00)
--- NOTE | 2017-04-12 10:47 | PCM.PN ---
- General Info Date of Service: 04/12/17 Admission Dx/Problem (Free Text): Hypoglycemia, UTI Subjective Update: Patient complains of bilateral calf pain this morning. She was given a Toradol injection but that did not help relieve the pain. She was subsequently given morphine which did help relieve the bilateral calf pain. Patient is ambulating. CK obtained this morning and is elevated at 842. Was 185 on admission. Her Lipitor was held. Apart from the calf pain, the patient has no new concerns. She did have a blood sugar of 71 prior to breakfast this morning but was asymptomatic. She is tolerating oral intake and voiding appropriately. Functional Status: Reports: Pain Controlled, Tolerating Diet, Ambulating, Urinating - Review of Systems General: Reports: No Symptoms HEENT: Reports: No Symptoms Pulmonary: Reports: No Symptoms Cardiovascular: Reports: No Symptoms Gastrointestinal: Reports: No Symptoms 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: Reports: No Symptoms 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: Reports: Other (Bilateral calf pain) Skin: Reports: No Symptoms Neurological: Reports: No Symptoms Psychiatric: Reports: No Symptoms - Patient Data Vitals - Most Recent: Last Vital Signs Temp 97.5 F 04/12/17 08:00 Pulse 78 04/12/17 08:00 Resp 14 04/12/17 08:00 BP 137/67 04/12/17 08:41 Pulse Ox 97 04/12/17 08:00 Weight - Most Recent: 187 lb 1.6 oz I&O - Last 24 Hours: Intake & Output 04/11/17 04/12/17 04/12/17 22:59 06:59 14:59 Intake Total 0 750 Output Total 400 900 Balance -400 -150 Lab Results Last 24 Hours: Laboratory Results - last 24 hr 04/11/17 04/11/17 04/11/17 Range/Units 12:41 16:06 20:24 WBC (4.0-11.0) K/uL RBC (4.30-5.90) M/uL Hgb (12.0-16.0) g/dL Hct (36.0-46.0) % MCV (80.0-98.0) fL MCH (27.0-32.0) pg MCHC (31.0-37.0) g/dL RDW Std Deviation (28.0-62.0) fl RDW Coeff of Jb (11.0-15.0) % Plt Count (150-400) K/uL MPV (7.40-12.00) fL Neut % (Auto) (48.0-80.0) % Lymph % (Auto) (16.0-40.0) % Hamblen % (Auto) (0.0-15.0) % Eos % (Auto) (0.0-7.0) % Baso % (Auto) (0.0-1.5) % Neut # (Auto) (1.4-5.7) K/uL Lymph # (Auto) (0.6-2.4) K/uL Hamblen # (Auto) (0.0-0.8) K/uL Eos # (Auto) (0.0-0.7) K/uL Baso # (Auto) (0.0-0.1) K/uL Nucleated RBC % /100WBC Nucleated RBCs # K/uL Sodium (136-146) mmol/L Potassium (3.5-5.1) mmol/L Chloride (98-110) mmol/L Carbon Dioxide (21-31) mmol/L BUN (6.0-23.0) mg/dL Creatinine (0.6-1.5) mg/dL Est Cr Clr Drug Dosing mL/min Estimated GFR (MDRD) ml/min Glucose (60-110) mg/dL POC Glucose 136 H 147 H 271 H (60-110) mg/dL Calcium (8.8-10.8) mg/dL Phosphorus (2.4-4.7) mg/dL Magnesium (1.5-2.3) mEq/L Creatine Kinase (9-236) IU/L 04/12/17 04/12/17 04/12/17 Range/Units 05:38 05:38 05:38 WBC 11.72 H (4.0-11.0) K/uL RBC 4.70 (4.30-5.90) M/uL Hgb 14.4 (12.0-16.0) g/dL Hct 43.3 (36.0-46.0) % MCV 92.1 (80.0-98.0) fL MCH 30.6 (27.0-32.0) pg MCHC 33.3 (31.0-37.0) g/dL RDW Std Deviation 48.1 (28.0-62.0) fl RDW Coeff of Jb 14 (11.0-15.0) % Plt Count 303 (150-400) K/uL MPV 11.30 (7.40-12.00) fL Neut % (Auto) 56.6 (48.0-80.0) % Lymph % (Auto) 31.1 (16.0-40.0) % Hamblen % (Auto) 9.0 (0.0-15.0) % Eos % (Auto) 2.8 (0.0-7.0) % Baso % (Auto) 0.5 (0.0-1.5) % Neut # (Auto) 6.6 H (1.4-5.7) K/uL Lymph # (Auto) 3.6 H (0.6-2.4) K/uL Hamblen # (Auto) 1.1 H (0.0-0.8) K/uL Eos # (Auto) 0.3 (0.0-0.7) K/uL Baso # (Auto) 0.1 (0.0-0.1) K/uL Nucleated RBC % 0.0 /100WBC Nucleated RBCs # 0 K/uL Sodium 141 (136-146) mmol/L Potassium 3.6 (3.5-5.1) mmol/L Chloride 110 (98-110) mmol/L Carbon Dioxide 22 (21-31) mmol/L BUN 17 (6.0-23.0) mg/dL Creatinine 0.8 (0.6-1.5) mg/dL Est Cr Clr Drug Dosing 75.01 mL/min Estimated GFR (MDRD) > 60.0 ml/min Glucose 97 (60-110) mg/dL POC Glucose (60-110) mg/dL Calcium 8.9 (8.8-10.8) mg/dL Phosphorus 3.5 (2.4-4.7) mg/dL Magnesium 1.8 (1.5-2.3) mEq/L Creatine Kinase 842 H (9-236) IU/L 04/12/17 Range/Units 06:28 WBC (4.0-11.0) K/uL RBC (4.30-5.90) M/uL Hgb (12.0-16.0) g/dL Hct (36.0-46.0) % MCV (80.0-98.0) fL MCH (27.0-32.0) pg MCHC (31.0-37.0) g/dL RDW Std Deviation (28.0-62.0) fl RDW Coeff of Jb (11.0-15.0) % Plt Count (150-400) K/uL MPV (7.40-12.00) fL Neut % (Auto) (48.0-80.0) % Lymph % (Auto) (16.0-40.0) % Hamblen % (Auto) (0.0-15.0) % Eos % (Auto) (0.0-7.0) % Baso % (Auto) (0.0-1.5) % Neut # (Auto) (1.4-5.7) K/uL Lymph # (Auto) (0.6-2.4) K/uL Hamblen # (Auto) (0.0-0.8) K/uL Eos # (Auto) (0.0-0.7) K/uL Baso # (Auto) (0.0-0.1) K/uL Nucleated RBC % /100WBC Nucleated RBCs # K/uL Sodium (136-146) mmol/L Potassium (3.5-5.1) mmol/L Chloride (98-110) mmol/L Carbon Dioxide (21-31) mmol/L BUN (6.0-23.0) mg/dL Creatinine (0.6-1.5) mg/dL Est Cr Clr Drug Dosing mL/min Estimated GFR (MDRD) ml/min Glucose (60-110) mg/dL POC Glucose 71 (60-110) mg/dL Calcium (8.8-10.8) mg/dL Phosphorus (2.4-4.7) mg/dL Magnesium (1.5-2.3) mEq/L Creatine Kinase (9-236) IU/L Med Orders - Current: Current Medications Acetaminophen (Tylenol) 650 mg PO Q4H PRN PRN Reason: Pain (Mild 1-3)/fever Last Admin: 04/12/17 09:25 Dose: 650 mg Bisacodyl (Dulcolax) 5 mg PO DAILY PRN PRN Reason: Constipation Ketorolac Tromethamine (Toradol) 30 mg IVPUSH Q6H PRN PRN Reason: Pain Last Admin: 04/11/17 17:27 Dose: 30 mg Lisinopril (Prinivil) 10 mg PO DAILY [facility] Last Admin: 04/12/17 08:41 Dose: 10 mg Lorazepam (Ativan) 1 mg PO Q8H PRN PRN Reason: Anxiety Morphine Sulfate (Morphine) 5 mg IVPUSH Q2H PRN PRN Reason: Pain (severe 7-10) Last Admin: 04/11/17 20:16 Dose: 5 mg Omeprazole (Omeprazole) 20 mg PO ACBREAKFAST [facility] Last Admin: 04/12/17 06:30 Dose: 20 mg Patients Own Med Toujeo Insulin 300 Units/Ml 1 each SUBCUT BEDTIME [facility] Sodium Chloride (Saline Flush) 10 ml FLUSH ASDIRECTED PRN PRN Reason: Keep Vein Open Last Admin: 04/11/17 10:32 Dose: 10 ml Sodium Chloride (Saline Flush) 2.5 ml FLUSH ASDIRECTED PRN PRN Reason: Keep Vein Open Last Admin: 04/11/17 10:33 Dose: 2.5 ml Temazepam (Restoril) 15 mg PO BEDTIME PRN PRN Reason: Sleep Trimethoprim/Sulfamethoxazole (Septra Ds) 1 tab PO BID [facility] Last Admin: 04/12/17 08:42 Dose: 1 tab Discontinued Medications Sodium Chloride (Normal Saline) 1,000 mls @ 999 mls/hr IV STAT ONE Stop: 04/11/17 11:23 Last Admin: 04/11/17 10:32 Dose: 999 mls/hr Ceftriaxone Sodium/Dextrose 1 (gm/ Premix) 50 mls @ 100 mls/hr IV ONETIME ONE Stop: 04/11/17 11:40 Last Admin: 04/11/17 11:27 Dose: 100 mls/hr Insulin Glargine (Lantus Solostar) 74 units SUBCUT BEDTIME [facility] Ketorolac Tromethamine (Toradol) 30 mg IVPUSH ONETIME ONE Stop: 04/11/17 12:27 Last Admin: 04/11/17 12:37 Dose: 30 mg Patients Own Med Toujeo Insulin 300 Units/Ml 0 each SQ BEDTIME [facility] Last Admin: 04/11/17 21:34 Dose: 1 each Patients Own Med Toujeo Insulin 300 Units/Ml 1 each SQ BEDTIME [facility] Venlafaxine HCl (Effexor Xr) 75 mg PO DAILY [facility] - Exam Quality Assessment: No: DVT Prophylaxis General: Alert, Oriented, Cooperative, No Acute Distress Neck: Supple Lungs: Clear to Auscultation, Normal Respiratory Effort Cardiovascular: Regular Rate, Regular Rhythm GI/Abdominal Exam: Normal Bowel Sounds, Soft, Non-Tender, No Organomegaly, No Distention, No Abnormal Bruit, No Mass Extremities: Normal Inspection, Normal Range of Motion, No Pedal Edema, Normal Capillary Refill, Other (Bilateral calf tenderness) Peripheral Pulses: 2+: Radial (L), Radial (R), Posterior Tibial (L), Posterior Tibial (R) Skin: Warm, Dry, Intact Neurological: No New Focal Deficit Psy/Mental Status: Alert, Anxious - Problem List & Annotations (1) Rhabdomyolysis SNOMED Code(s): 038255956 Code(s): M62.82 - RHABDOMYOLYSIS Status: Acute Current Visit: Yes (2) Hypoglycemia SNOMED Code(s): 844239321 Code(s): E16.2 - HYPOGLYCEMIA, UNSPECIFIED Status: Acute Current Visit: Yes (3) Myalgia SNOMED Code(s): 70137299 Code(s): M79.1 - MYALGIA Status: Acute Current Visit: Yes (4) UTI (urinary tract infection) SNOMED Code(s): 93746118 Code(s): N39.0 - URINARY TRACT INFECTION, SITE NOT SPECIFIED Status: Acute Current Visit: Yes Qualifiers: Urinary tract infection type: site unspecified Hematuria presence: without hematuria Qualified Code(s): N39.0 - Urinary tract infection, site not specified (5) Hypothyroidism SNOMED Code(s): 89577398 Code(s): E03.9 - HYPOTHYROIDISM, UNSPECIFIED Status: Acute Current Visit : Yes - Problem List Review Problem List Initiated/Reviewed/Updated: Yes - My Orders Last 24 Hours: My Active Orders 04/12/17 05:38 PHOSPHORUS [CHEM] Routine TSH [CHEM] Routine 04/12/17 10:13 LORazepam [Ativan] 1 mg PO Q8H PRN - Plan Plan:: 42-year-old female admitted with hypoglycemia, UTI and bilateral calf pain. #1. Hypoglycemia: -Home medications of NovoLog and Lantus have been held. Most recent blood sugar was 97. We'll continue to monitor daily blood sugars with frequent Accu-Cheks. #2. Bilateral calf pain with elevated CK: -CK is elevated at 842. Was within normal limits on admission at 185. -Lipitor has been held. -Electrolytes are within normal limits. -Will recheck CK in the morning. #3. UTI: -Continue Bactrim. -White blood cell count is improving. #4. Abnormal head CT: -Head CT shows small, stable nonspecific low attenuation changes adjacent to the frontal horns bilaterally. Multiple sclerosis or other demyelinating processes need to be worked up further. -Patient informed of head CT findings and is extremely anxious as there is a family history of multiple sclerosis in her mother. -Ativan 1 mg every 8 hours as needed for anxiety. #5. Hypothyroidism: -Family history of hypothyroidism. TSH was checked secondary to elevated CK and family history. TSH is 6.17. -Patient started on Synthroid 25 g daily. DVT prophylaxis: No SCDs secondary to bilateral calf tenderness. No Lovenox or heparin secondary to urinary tract bleeding. Disposition: 1-2 days pending improvement.
[2017-04-12] MEDS: LORazepam 1 MG Tab PO PRN ×2 (10:49→21:07)
[2017-04-12] MEDS: Levothyroxine 25 MCG Tab PO SCH (11:15)
[2017-04-12] MEDS: Insulin Aspart 100 Units/ML 3 ML Pen SUBCUT SCH (16:36)
[2017-04-12] MEDS: Sodium Chloride 0.9% 1,000 ML IV SCH (17:48)
[2017-04-12] MEDS ORDERED: Ibuprofen 400 MG Tab PO PRN (19:19)
[2017-04-13] MEDS: Sodium Chloride 0.9% 1,000 ML IV SCH ×2 (00:12→07:28)
[2017-04-13] MEDS: Morphine 10 MG/ML Syringe IVPUSH PRN (04:09)
[2017-04-13 06:30] LABS: CHLORIDE,CL 112 mmol/L (98-110); SODIUM,NA 139 mmol/L (136-146)
[2017-04-13] MEDS: Insulin Aspart 100 Units/ML 3 ML Pen SUBCUT SCH ×2 (07:27→12:13)
[2017-04-13] MEDS: Levothyroxine 25 MCG Tab PO SCH (07:28)
[2017-04-13] MEDS: Omeprazole 20 MG Cap.CR PO SCH (07:28)
[2017-04-13] MEDS: Lisinopril 10 MG Tab PO SCH (08:04)
[2017-04-13] MEDS: Sulfamethoxazole/Trimethoprim 800-160 MG Tab PO SCH (08:04)
[2017-04-13 08:40] VITALS: BP 138/72
--- NOTE | 2017-04-13 10:21 | PCM.DCSUM1 ---
Discharge Summary - Hospital Course Brief History: This 42 year old female with pmh of DM type 1, hypercholesterolemia, hypertension, and depression presented to ED via EMS for low blood sugar. The patient says she took her normal doses of insulin yesterday including her evening dose of Toujeo. She denied having issues with eating, no abdominal pain, vomiting, or diarrhea. Patient said that when she woke she knew that her blood sugar was low and she slid off the bed but did not fall.On EMS arrival her blood sugar was 58 and after oral glucose the repeat was 41 and they gave her IV dextrose and blood sugars then elevated 110s. In the ED, she was feeling back to her baseline and does not feel any focal weakness. She did report having some depression and hasn't been eating a lot or like she used to since her divorce, "I'm not making large meals for supper, because its just me now". Patient reported she felt like she had a UTI and had not been drinking much fluids due to personal choice. She denies any URI symptoms, no chest pain or SOB. In the ED, slightly leukocytosis noted, 11.720 , BMP WNL, glucose 71 and ranged 120-200. CPK 842 and TSH 6.17. CXR negative. Head CT revealed no acute abnormality and no significant change form prior exam. Small subtle non specific low attenutation changes are noted in pat frontal hormas bilaterally, MS or other demyelinating process should be considered in appropriate setting. She was admitted for observation due to hypoglycemia. PCP, Dr Hubbard. - Discharge Data Discharge Date: 04/13/17 Discharge Disposition: Home, Self-Care 01 Condition: Good - Discharge Diagnosis/Problem(s) (1) Hypoglycemia SNOMED Code(s): 632851094 ICD Code: E16.2 - HYPOGLYCEMIA, UNSPECIFIED Status: Acute Current Visit: Yes (2) UTI (urinary tract infection) SNOMED Code(s): 65523283 ICD Code: N39.0 - URINARY TRACT INFECTION, SITE NOT SPECIFIED Status: Acute Current Visit: Yes Qualifiers: Urinary tract infection type: site unspecified Hematuria presence: without hematuria Qualified Code(s): N39.0 - Urinary tract infection, site not specified (3) Elevated CPK SNOMED Code(s): 953832653 ICD Code: R74.8 - ABNORMAL LEVELS OF OTHER SERUM ENZYMES Status: Acute Current Visit: Yes (4) Depression SNOMED Code(s): 11593896 ICD Code: F32.9 - MAJOR DEPRESSIVE DISORDER, SINGLE EPISODE, UNSPECIFIED Status: Acute Current Visit: Yes Qualifiers: Depression Type: major depressive disorder Major depression recurrence: single episode Active/Remission status: currently active Major depression episode severity: mild Qualified Code(s): F32.0 - Major depressive disorder, single episode, mild (5) DM type 1 (diabetes mellitus, type 1) SNOMED Code(s): 82768082 ICD Code: E10.9 - TYPE 1 DIABETES MELLITUS WITHOUT COMPLICATIONS Status: Chronic Current Visit: Yes Qualifiers: Diabetes mellitus complication status: with hypoglycemia Diabetes mellitus complication detail: without coma Qualified Code(s): E10.649 - Type 1 diabetes mellitus with hypoglycemia without coma - Patient Instructions Diet: Diabetic Diet Activity: As Tolerated, Rest and Relax Today Showering/Bathing: May Shower Notify Provider of: Fever, Increased Pain, Swelling and Redness, Drainage, Nausea and/or Vomiting Other/Special Instructions: Monitor CPK at next clinic visit with Dr. Hubbard. - Discharge Plan Prescriptions/Med Rec: Sertraline [Zoloft] 50 mg PO DAILY #30 tablet Sulfamethoxazole/Trimethoprim [IJD: Sulfamethoxazole/Trimethoprim DS] 1 tab PO BID #7 tablet Home Medications: Home Meds Insulin Aspart [Novolog Flexpen] See Protocol SQ BIDAC 04/25/14 [History] Lisinopril 10 mg PO DAILY 03/31/15 [History] Omeprazole Magnesium [Prilosec Otc] 20 mg PO DAILY 03/14/17 [History] Insulin Glargine,Hum.Rec.Anlog [Toujeo Solostar] 20 unit SQ BEDTIME #0 04/13/17 [Rx] Sertraline [Zoloft] 50 mg PO DAILY #30 tablet 04/13/17 [Rx] Sulfamethoxazole/Trimethoprim [IJD: Sulfamethoxazole/Trimethoprim DS] 1 tab PO BID #7 tablet 04/13/17 [Rx] Patient Handouts: Muscle Pain, Adult, Urinary Tract Infection, Adult, Easy-to- Read, Hypoglycemia, [id number] Referrals: Jocelyne Garsia MD [Physician] - (Please arrange follow up for evaluation for MS, family Hx and CT findings.) Bran Hubbard MD [Physician] - 04/20/17 12:30 pm PCP,None [Primary Care Provider] - - Discharge Summary/Plan Comment DC Time >30 min.: No Discharge Summary/Plan Comment: Discharge Diagnoses: Hypoglycemia-resolved UTI-e coli Elevated CPK HTN Hypercholesterolemia Depression Jacqueline was admitted and observed due to hypoglycemia. Insulin was held the first night and then restarted last evening at a lower dose, Tuojeo 20 units. BS this morning, fasting was 120. She was instructed to lower Toujeo dosing to 20 units and to be checking her BS frequently. She reports not eating much since her divorce, because she is not making large meals anymore. UC returned with E coli resistant to Cipro and Levaquin, she will be continued on Bactrim for a total of 5 days. Prescription will be sent to pharmacy for this. She complained of some leg cramping and pain, CPK was checked and noted to be elevated at 842, today it is 423 and she reports she little leg cramping. Her Lipitor was stopped and will be held until follow up with PCP. TSH was noted to be 6.17 and initially Synthroid was started, but will hold off and have her follow up with PCP in 4-6 week with a retest due to acute illness now. She reports feeling very depressed and was quite tearful in her room this morning. She is hoping to take something to help with this, she was started on Effexor, but she reports she "couldn't stomach it", and she stopped it. I will start her on Sertraline 50 mg daily and to follow up with PCP. She is to return to clinic in 1 week for follow up. She is to return to ED or clinic if concerns should arise. Regarding CT head findings and significant family hx with mother and grandmother of We will refer as outpatient to her Dr. Garsia for further evaluation. - General Info Date of Service: 04/13/17 Admission Dx/Problem (Free Text: Hypoglycemia, UTI Subjective Update: Sitting up in chair, feeling depressed, not suicidal/homicidal. Very tearful and anxious regarding Head CT findings. No chest pain or SOB. Feels ok to be discharged today. No feelings of hypoglycemia Functional Status: Reports: Pain Controlled, Tolerating Diet, Ambulating, Urinating - Review of Systems General: Reports: No Symptoms. Denies: Fever HEENT: Reports: No Symptoms. Denies: Headaches, Sore Throat Pulmonary: Reports: No Symptoms. Denies: Shortness of Breath Cardiovascular: Reports: No Symptoms. Denies: Chest Pain Gastrointestinal: Reports: No Symptoms. Denies: Abdominal Pain, Nausea, Vomiting 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: Reports: No Symptoms. Denies: Dysuria, Frequency, Burning 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: Reports: No Symptoms. Denies: Neck Pain Neurological: Reports: No Symptoms. Denies: Confusion Psychiatric: Reports: Depression, Anxiety. Denies: Suicidal Ideation, Homicidal Ideation - Patient Data Vitals - Most Recent: Last Vital Signs Temp 97.8 F 04/13/17 08:00 Pulse 72 04/13/17 08:00 Resp 16 04/13/17 08:00 BP 131/72 04/13/17 08:04 Pulse Ox 96 04/13/17 08:00 Weight - Most Recent: 84.867 kg I&O - Last 24 hours: Intake & Output 04/12/17 04/13/17 04/13/17 22:59 06:59 14:59 Intake Total 560 1896 Output Total 800 1100 Balance -240 796 Lab Results - Last 24 hrs: Laboratory Results - last 24 hr 04/12/17 04/12/17 04/12/17 Range/Units 05:38 05:38 11:25 WBC (4.0-11.0) K/uL RBC (4.30-5.90) M/uL Hgb (12.0-16.0) g/dL Hct (36.0-46.0) % MCV (80.0-98.0) fL MCH (27.0-32.0) pg MCHC (31.0-37.0) g/dL RDW Std Deviation (28.0-62.0) fl RDW Coeff of Jb (11.0-15.0) % Plt Count (150-400) K/uL MPV (7.40-12.00) fL Neut % (Auto) (48.0-80.0) % Lymph % (Auto) (16.0-40.0) % Baldwin % (Auto) (0.0-15.0) % Eos % (Auto) (0.0-7.0) % Baso % (Auto) (0.0-1.5) % Neut # (Auto) (1.4-5.7) K/uL Lymph # (Auto) (0.6-2.4) K/uL Baldwin # (Auto) (0.0-0.8) K/uL Eos # (Auto) (0.0-0.7) K/uL Baso # (Auto) (0.0-0.1) K/uL Nucleated RBC % /100WBC Nucleated RBCs # K/uL Sodium (136-146) mmol/L Potassium (3.5-5.1) mmol/L Chloride (98-110) mmol/L Carbon Dioxide (21-31) mmol/L BUN (6.0-23.0) mg/dL Creatinine (0.6-1.5) mg/dL Est Cr Clr Drug Dosing mL/min Estimated GFR (MDRD) ml/min Glucose (60-110) mg/dL POC Glucose 111 H (60-110) mg/dL Calcium (8.8-10.8) mg/dL Magnesium (1.5-2.3) mEq/L Creatine Kinase (9-236) IU/L Free T4 0.80 (0.7-1.48) ng/dL TSH 3rd Generation 6.17 H (0.47-5.0) uIU/mL 04/12/17 04/12/17 04/13/17 Range/Units 15:59 20:56 05:18 WBC (4.0-11.0) K/uL RBC (4.30-5.90) M/uL Hgb (12.0-16.0) g/dL Hct (36.0-46.0) % MCV (80.0-98.0) fL MCH (27.0-32.0) pg MCHC (31.0-37.0) g/dL RDW Std Deviation (28.0-62.0) fl RDW Coeff of Jb (11.0-15.0) % Plt Count (150-400) K/uL MPV (7.40-12.00) fL Neut % (Auto) (48.0-80.0) % Lymph % (Auto) (16.0-40.0) % Baldwin % (Auto) (0.0-15.0) % Eos % (Auto) (0.0-7.0) % Baso % (Auto) (0.0-1.5) % Neut # (Auto) (1.4-5.7) K/uL Lymph # (Auto) (0.6-2.4) K/uL Baldwin # (Auto) (0.0-0.8) K/uL Eos # (Auto) (0.0-0.7) K/uL Baso # (Auto) (0.0-0.1) K/uL Nucleated RBC % /100WBC Nucleated RBCs # K/uL Sodium 139 (136-146) mmol/L Potassium 3.9 (3.5-5.1) mmol/L Chloride 112 H (98-110) mmol/L Carbon Dioxide 20 L (21-31) mmol/L BUN 14 (6.0-23.0) mg/dL Creatinine 0.7 (0.6-1.5) mg/dL Est Cr Clr Drug Dosing 85.72 mL/min Estimated GFR (MDRD) > 60.0 ml/min Glucose 120 H (60-110) mg/dL POC Glucose 206 H 216 H (60-110) mg/dL Calcium 8.0 L (8.8-10.8) mg/dL Magnesium (1.5-2.3) mEq/L Creatine Kinase 423 H (9-236) IU/L Free T4 0.75 (0.7-1.48) ng/dL TSH 3rd Generation 0.25 L (0.47-5.0) uIU/mL 04/13/17 04/13/17 04/13/17 Range/Units 05:18 05:18 06:07 WBC 8.24 (4.0-11.0) K/uL RBC 4.26 L (4.30-5.90) M/uL Hgb 13.0 (12.0-16.0) g/dL Hct 39.8 (36.0-46.0) % MCV 93.4 (80.0-98.0) fL MCH 30.5 (27.0-32.0) pg MCHC 32.7 (31.0-37.0) g/dL RDW Std Deviation 48.3 (28.0-62.0) fl RDW Coeff of Jb 14 (11.0-15.0) % Plt Count 228 (150-400) K/uL MPV 11.40 (7.40-12.00) fL Neut % (Auto) 53.5 (48.0-80.0) % Lymph % (Auto) 34.0 (16.0-40.0) % Baldwin % (Auto) 8.0 (0.0-15.0) % Eos % (Auto) 4.0 (0.0-7.0) % Baso % (Auto) 0.5 (0.0-1.5) % Neut # (Auto) 4.4 (1.4-5.7) K/uL Lymph # (Auto) 2.8 H (0.6-2.4) K/uL Baldwin # (Auto) 0.7 (0.0-0.8) K/uL Eos # (Auto) 0.3 (0.0-0.7) K/uL Baso # (Auto) 0.0 (0.0-0.1) K/uL Nucleated RBC % 0.0 /100WBC Nucleated RBCs # 0 K/uL Sodium (136-146) mmol/L Potassium (3.5-5.1) mmol/L Chloride (98-110) mmol/L Carbon Dioxide (21-31) mmol/L BUN (6.0-23.0) mg/dL Creatinine (0.6-1.5) mg/dL Est Cr Clr Drug Dosing mL/min Estimated GFR (MDRD) ml/min Glucose (60-110) mg/dL POC Glucose 84 (60-110) mg/dL Calcium (8.8-10.8) mg/dL Magnesium 1.8 (1.5-2.3) mEq/L Creatine Kinase (9-236) IU/L Free T4 (0.7-1.48) ng/dL TSH 3rd Generation (0.47-5.0) uIU/mL Med Orders - Current: Current Medications Acetaminophen (Tylenol) 650 mg PO Q4H PRN PRN Reason: Pain (Mild 1-3)/fever Last Admin: 04/12/17 09:25 Dose: 650 mg Bisacodyl (Dulcolax) 5 mg PO DAILY PRN PRN Reason: Constipation Sodium Chloride (Normal Saline) 1,000 mls @ 150 mls/hr IV ASDIRECTED WEI Last Admin: 04/13/17 07:28 Dose: 150 mls/hr Ibuprofen (Motrin) 400 mg PO Q8H PRN PRN Reason: Pain Last Admin: 04/12/17 19:28 Dose: 400 mg Insulin Aspart (Novolog) 0 unit SUBCUT TIDAC REPLACED BY [facility] PRN Reason: Protocol Last Admin: 04/13/17 07:27 Dose: Not Given Ketorolac Tromethamine (Toradol) 30 mg IVPUSH Q6H PRN PRN Reason: Pain Last Admin: 04/11/17 17:27 Dose: 30 mg Levothyroxine Sodium (Levothyroxine) 25 mcg PO ACBREAKFAST REPLACED BY [facility] Last Admin: 04/13/17 07:28 Dose: 25 mcg Lisinopril (Prinivil) 10 mg PO DAILY REPLACED BY [facility] Last Admin: 04/13/17 08:04 Dose: 10 mg Lorazepam (Ativan) 1 mg PO Q8H PRN PRN Reason: Anxiety Last Admin: 04/12/17 21:07 Dose: 1 mg Morphine Sulfate (Morphine) 5 mg IVPUSH Q2H PRN PRN Reason: Pain (severe 7-10) Last Admin: 04/13/17 04:09 Dose: 5 mg Omeprazole (Omeprazole) 20 mg PO ACBREAKFAST REPLACED BY [facility] Last Admin: 04/13/17 07:28 Dose: 20 mg Patients Own Med Toujeo Insulin 300 Units/Ml 1 each SUBCUT BEDTIME REPLACED BY [facility] Last Admin: 04/12/17 21:03 Dose: 1 each Sodium Chloride (Saline Flush) 10 ml FLUSH ASDIRECTED PRN PRN Reason: Keep Vein Open Last Admin: 04/11/17 10:32 Dose: 10 ml Sodium Chloride (Saline Flush) 2.5 ml FLUSH ASDIRECTED PRN PRN Reason: Keep Vein Open Last Admin: 04/11/17 10:33 Dose: 2.5 ml Temazepam (Restoril) 15 mg PO BEDTIME PRN PRN Reason: Sleep Trimethoprim/Sulfamethoxazole (Septra Ds) 1 tab PO BID REPLACED BY [facility] Last Admin: 04/13/17 08:04 Dose: 1 tab Discontinued Medications Sodium Chloride (Normal Saline) 1,000 mls @ 999 mls/hr IV STAT ONE Stop: 04/11/17 11:23 Last Admin: 04/11/17 10:32 Dose: 999 mls/hr Ceftriaxone Sodium/Dextrose 1 (gm/ Premix) 50 mls @ 100 mls/hr IV ONETIME ONE Stop: 04/11/17 11:40 Last Admin: 04/11/17 11:27 Dose: 100 mls/hr Insulin Glargine (Lantus Solostar) 74 units SUBCUT BEDTIME WEI Ketorolac Tromethamine (Toradol) 30 mg IVPUSH ONETIME ONE Stop: 04/11/17 12:27 Last Admin: 04/11/17 12:37 Dose: 30 mg Patients Own Med [employer] Insulin 300 Units/Ml 0 each SQ BEDTIME WEI Last Admin: 04/11/17 21:34 Dose: 1 each Patients Own Med [employer] Insulin 300 Units/Ml 1 each SQ BEDTIME WEI Venlafaxine HCl (Effexor Xr) 75 mg PO DAILY WEI - Exam General: Reports: Alert, Oriented, Cooperative, No Acute Distress Lungs: Reports: Clear to Auscultation, Normal Respiratory Effort Cardiovascular: Reports: Regular Rate, Regular Rhythm GI/Abdominal Exam: Normal Bowel Sounds, Soft, Non-Tender, No Organomegaly, No Distention, No Abnormal Bruit, No Mass, Pelvis Stable Extremities: Normal Inspection, Normal Range of Motion, Non-Tender, No Pedal Edema, Normal Capillary Refill Neurological: Reports: No New Focal Deficit Psy/Mental Status: Reports: Alert, Anxious, Depressed (tearful). Denies: Homicidal Ideation *Q Meaningful Use (DIS) - VTE *Q VTE Criteria *Q: - Stroke *Q Stroke Criteria *Q: - AMI *Q AMI Criteria *Q:
--- NOTE | 2017-04-13 12:11 | CT ---
EXAM DATE: 04/11/17 PATIENT'S AGE: 42 Patient: CHEY GANN Facility: [place], [place] Site . Site : 1975 Study: CT Head WO CONT [id number]/11/2017 11:16:36 AM Ordering Physician: Jamila Reza Final Report: INDICATION: Hypoglycemia. Difficulty walking. Stroke-like symptoms. TECHNIQUE: CT head without contrast. COMPARISON: 04/25/2014. FINDINGS: CSF spaces: Within normal limits for age. Brain parenchyma: Small areas of low attenuation adjacent to the frontal horns bilaterally, these are unchanged The loyd-white differentiation is normal. No sign of mass, hemorrhage, or midline shift. Skull base and calvarium: The visualized paranasal sinuses and mastoid air cells demonstrate no acute or significant findings. The visualized orbits are grossly unremarkable. No skull fractures. IMPRESSION: 1. No acute abnormality and no significant change from the prior exam. 2. Small, stable nonspecific low attenuation changes are adjacent to the frontal horns bilaterally. Multiple sclerosis or other demyelinating process should be considered in the appropriate clinical setting. Dictated by Vlad Coker MD @ 04/11/2017 11:30:11 AM Dictated by: Vlad Coker MD @ 04/11/2017 11:30:17 (Electronic Signature) Report Signed by Proxy. [facility]
--- NOTE | 2017-04-13 12:12 | CR ---
EXAM DATE: 04/11/17 PATIENT'S AGE: 42 Patient: CHEY GANN Facility: [place], [place] Site . Site : 1975 Study: XRay Chest [id number]/[id number] 11:23:38 AM Ordering Physician: Jamila Reza Final Report: INDICATION: pain/sob Single AP view Findings: The lungs are clear. Pulmonary vascularity, mediastinum and cardiac silhouette are within normal limits. No effusions and no pneumothorax. Osseous structures appear unremarkable. Impression: No evidence of acute cardiopulmonary disease. Dictated by: Constantin Lopez MD @ 04/11/2017 11:31:57 (Electronic Signature) Report Signed by Proxy. [facility]
== END 2017-04-13 11:55 | disposition home or self-care (01) ==
LOC: MW.ED 10:11 → MW.MS 12:07
PROVIDERS: ADMIT Family Medicine; ATTEND Family Medicine
DX: E10.649 Type 1 diabetes mellitus with hypoglycemia without coma (principal); N39.0 Urinary tract infection, site not specified; R74.8 Abnormal levels of other serum enzymes; F32.0 Major depressive disorder, single episode, mild; Z79.4 Long term (current) use of insulin; Z79.899 Other long term (current) drug therapy; F17.210 Nicotine dependence, cigarettes, uncomplicated
CPT/HCPCS: 36415; 70450; 71010; 80048; 80053; 81001; 82550; 82962; 83735; 84100; 84439; 84443; 84484; 85025; 87086; 87088; 87186; 93005; 96361; 96365; 96375; 96376; 99285; A9270; G0378; J0696; J1815; J1885; J2270; J7040; 99284

== ENCOUNTER 2017-07-20 20:57 | Observation (INO) | payer OTHER ==
[2017-07-20] MEDS ORDERED: Aspirin 81 MG Tab.Chew PO ONE (21:00)
[2017-07-20] MEDS: Nitroglycerin 0.4 MG Tab.SL SL PRN ×3 (21:06→21:18)
[2017-07-20] MEDS ORDERED: Famotidine 20 MG/2 ML SDV IVPUSH ONE (21:09)
[2017-07-20] MEDS ORDERED: Sodium Chloride 0.9% 500 ML IV SCH (21:15)
--- NOTE | 2017-07-20 21:15 | EDM.PDOC ---
ED HPI GENERAL MEDICAL PROBLEM - General Chief Complaint: Chest Pain Stated Complaint: CHEST PAINS Time Seen by Provider: 07/20/17 21:01 Source of Information: Reports: Patient History Limitations: Reports: No Limitations - History of Present Illness INITIAL COMMENTS - FREE TEXT/NARRATIVE: HISTORY AND PHYSICAL: History of present illness: Patient is a 42-year-old female who is brought to the emergency room with complaints of mid sternal chest pain. She states that the chest pain started earlier today and radiates into her left chest wall. Pain is not associated with any diaphoresis, shortness of breath, nor is it reproducible. Nothing makes the pain better or worse. She denies any headache, change in vision, abdominal pain, nausea, vomiting or diarrhea. No personal history of heart attack or heart disease. She was seen she states "several times for the same thing". 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 Was last admitted for observation on 2016 to rule out VA, she was discharged to home with no acute findings. Patient has family history, grandparents, whom have had VA. Personal history of anxiety, GERD, and diabetes type 1, insulin dependant. Review of systems: As per history of present illness and below otherwise all systems reviewed and negative. Past medical history: As per history of present illness and as reviewed below otherwise noncontributory. Surgical history: As per history of present illness and as reviewed below otherwise noncontributory. Social history: No reported history of drug or alcohol abuse. Family history: As per history of present illness and as reviewed below otherwise noncontributory. Physical exam: General: Well-developed and well-nourished 42-year-old female. Alert and oriented. Nontoxic appearing and in no acute distress. HEENT: Atraumatic, normocephalic, pupils reactive, negative for conjunctival pallor or scleral icterus, mucous membranes moist, throat clear, neck supple, nontender, trachea midline. Lungs: Clear to auscultation, breath sounds equal bilaterally, chest nontender. Non-reproducible with palpation. Heart: S1S2, regular rate and rhythm without murmur Abdomen: Soft, nondistended, nontender. Negative for masses or hepatosplenomegaly. Negative for costovertebral tenderness. Pelvis: Stable nontender. 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: Deferred. Rectal: Deferred. Extremities: Atraumatic, cell extremities per self without difficulty or deficits, negative for cords or calf pain. Neurovascular unremarkable. Neuro: Awake, alert, oriented. Cranial nerves II through XII unremarkable. Cerebellum unremarkable. Motor and sensory unremarkable throughout. Exam nonfocal. Patient did not get any relief with the 3 tablets of sublingual nitro. Requesting additional pain management. We will give Toradol IV. Lab results are pending. Labs, EKG and chest x-ray are within normal limits. Discussed observation admission with the patient. She is agreeable for overnight stay to rule out VA. Currently rating pain 08/08. Geraldine has agreed to keep patient as Observation Telemetry. Diagnostics: CBC, CMP, troponin, EKG, chest x-ray Therapeutics: Aspirin, Pepcid, IV fluid, nitroglycerin Impression: Chest Pain Plan: Observation admission with telemetry Definitive disposition and diagnosis as appropriate pending reevaluation and review of above. Onset: Today Duration: Hour(s): Location: Reports: Chest chest Pain Score (Numeric/FACES): 10 - Related Data Allergies Allergy/AdvReac Type Severity Reaction Status Date / Time No Known Allergies Allergy Verified 07/20/17 21:16 Home Meds: Home Meds Insulin Aspart [Novolog Flexpen] See Protocol SQ BIDAC 04/25/14 [History] Lisinopril 10 mg PO DAILY 03/31/15 [History] Omeprazole Magnesium [Prilosec Otc] 20 mg PO DAILY 03/14/17 [History] Insulin Glargine,Hum.Rec.Anlog [Toujeo Solostar] 20 unit SQ BEDTIME #0 04/13/17 [Rx] Sertraline [Zoloft] 50 mg PO DAILY #30 tablet 04/13/17 [Rx] atorvaSTATin [Lipitor] 10 mg PO DAILY 07/20/17 [History] Past Medical History - Past Health History Medical/Surgical History: Denies Medical/Surgical History Cardiovascular History: Reports: Hypertension, Other (See Below). Denies: CAD, Heart Failure Other Cardiovascular History: PVCs Gastrointestinal History: Reports: Other (See Below) Other Gastrointestinal History: Indigestion 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 History: Reports: Renal Disease. 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: Psychiatric History: Reports: Anxiety, Depression Endocrine/Metabolic History: Reports: Diabetes, Type I Dermatologic History: Reports: None - Infectious Disease History Infectious Disease History: Reports: Chicken Pox - Past Surgical History Dermatological Surgical History: Reports: None Social & Family History - Family History Family Medical History: Noncontributory Cardiac: Reports: Hypertension, VA Other Cardiac Family History: Grandparents had heart failure 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: Reports: Other (See Below) Other 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 Family History: Mother had MS Endocrine/Metabolic: Reports: Other (See Below) Other Endocrine/Metabolic Family History: Father "had thyroid problems." - Tobacco Use Smoking Status *Q: Current Every Day Smoker Years of Tobacco use: 20 Packs/Tins Daily: 0.5 Used Tobacco, but Quit: No Second Hand Smoke Exposure: Yes - Caffeine Use Caffeine Use: Reports: Soda, Tea - Alcohol Use Days Per Week of Alcohol Use: 1 Number of Drinks Per Day: 1 Total Drinks Per Week: 1 - Recreational Drug Use Recreational Drug Use: No ED ROS GENERAL - Review of Systems Review Of Systems: ROS reveals no pertinent complaints other than HPI. ED EXAM, GENERAL - Physical Exam Exam: See Below (See dictation) Course - Vital Signs Last Recorded V/S: Last Vital Signs Temp 97.6 F 07/20/17 20:57 Pulse 94 07/20/17 20:57 Resp 20 07/20/17 20:57 BP 147/67 H 07/20/17 21:18 Pulse Ox 95 07/20/17 20:57 - Orders/Labs/Meds Orders: Active Orders 24 hr Category Date Time Status EKG Documentation Completion [RC] STAT Care 07/20/17 21:00 Active Chest 1V Frontal [CR] Stat Exams 07/20/17 21:00 Taken Sodium Chloride 0.9% [Normal Saline] 500 ml Med 07/20/17 21:15 Active IV STAT Medication Orders Sodium Chloride (Normal Saline) 500 mls @ 999 mls/hr IV STAT WEI Last Admin: 07/20/17 21:14 Dose: 999 mls/hr Labs: Laboratory Tests 07/20/17 07/20/17 07/20/17 Range/Units 20:55 20:55 20:55 WBC 9.32 (4.0-11.0) K/uL RBC 4.21 L (4.30-5.90) M/uL Hgb 13.0 (12.0-16.0) g/dL Hct 38.3 (36.0-46.0) % MCV 91.0 (80.0-98.0) fL MCH 30.9 (27.0-32.0) pg MCHC 33.9 (31.0-37.0) g/dL RDW Std Deviation 46.0 (28.0-62.0) fl RDW Coeff of Jb 14 (11.0-15.0) % Plt Count 312 (150-400) K/uL MPV 10.50 (7.40-12.00) fL Neut % (Auto) 59.0 (48.0-80.0) % Lymph % (Auto) 26.4 (16.0-40.0) % Terry % (Auto) 9.3 (0.0-15.0) % Eos % (Auto) 4.4 (0.0-7.0) % Baso % (Auto) 0.9 (0.0-1.5) % Neut # (Auto) 5.5 (1.4-5.7) K/uL Lymph # (Auto) 2.5 H (0.6-2.4) K/uL Terry # (Auto) 0.9 H (0.0-0.8) K/uL Eos # (Auto) 0.4 (0.0-0.7) K/uL Baso # (Auto) 0.1 (0.0-0.1) K/uL Nucleated RBC % 0.0 /100WBC Nucleated RBCs # 0 K/uL INR 0.96 Sodium 141 (136-146) mmol/L Potassium 3.8 (3.5-5.1) mmol/L Chloride 109 (98-110) mmol/L Carbon Dioxide 22 (21-31) mmol/L BUN 16 (6.0-23.0) mg/dL Creatinine 0.8 (0.6-1.5) mg/dL Est Cr Clr Drug Dosing TNP Estimated GFR (MDRD) > 60.0 ml/min Glucose 155 H (60-110) mg/dL Calcium 9.7 (8.8-10.8) mg/dL Total Bilirubin 0.3 (0.1-1.5) mg/dL AST 28 (5-40) IU/L ALT 25 (8-54) IU/L Alkaline Phosphatase 69 (40-150) Troponin I < 0.10 (0.0-0.29) NG/ML Total Protein 7.1 (6.0-8.0) g/dL Albumin 4.3 (3.5-5.0) g/dL Globulin 2.8 (2.0-3.5) g/dL Albumin/Globulin Ratio 1.5 (1.3-2.8) Meds: Medications Generic Name Dose Route Start Last Admin Trade Name Freq PRN Reason Stop Dose Admin Sodium Chloride 500 mls @ 999 mls/hr 07/20/17 21:15 07/20/17 21:14 Normal Saline IV 999 mls/hr STAT WEI Administration Discontinued Medications Generic Name Dose Route Start Last Admin Trade Name Freq PRN Reason Stop Dose Admin Aspirin 324 mg 07/20/17 21:00 07/20/17 21:06 Aspirin PO 07/20/17 21:01 324 mg ONETIME ONE Administration Famotidine 20 mg 07/20/17 21:09 07/20/17 21:14 Pepcid IVPUSH 07/20/17 21:10 20 mg ONETIME ONE Administration Ketorolac Tromethamine 30 mg 07/20/17 21:27 07/20/17 21:36 Toradol IVPUSH 07/20/17 21:28 30 mg ONETIME ONE Administration Nitroglycerin 0.4 mg 07/20/17 21:00 07/20/17 21:18 Nitrostat SL 0.4 mg Q5M PRN Administration Chest Pain Departure - Departure Time of Disposition: 21:44 Disposition: Refer to Observation Clinical Impression: Chest pain, rule out acute myocardial infarction Forms: ED Department Discharge - My Orders Last 24 Hours: My Active Orders 07/20/17 21:00 EKG Documentation Completion [RC] STAT Chest 1V Frontal [CR] Stat 07/20/17 21:15 Sodium Chloride 0.9% [Normal Saline] 500 ml IV STAT - Assessment/Plan Last 24 Hours: My Active Orders 07/20/17 21:00 EKG Documentation Completion [RC] STAT Chest 1V Frontal [CR] Stat 07/20/17 21:15 Sodium Chloride 0.9% [Normal Saline] 500 ml IV STAT
[2017-07-20 21:27] LABS: CHLORIDE,CL 109 mmol/L (98-110); SODIUM,NA 141 mmol/L (136-146)
[2017-07-20] MEDS ORDERED: Ketorolac 30 MG/ML SDV IVPUSH ONE (21:27)
[2017-07-20] MEDS ORDERED: Insulin Glargine,Human Rec. Analog 100 Units/ML 3 ML Pen SUBCUT SCH (22:00)
[2017-07-20] MEDS ORDERED: Ondansetron 4 MG/2 ML SDV IVPUSH PRN (22:04)
[2017-07-20] MEDS ORDERED: Morphine 10 MG/ML Syringe IVPUSH PRN (22:04)
[2017-07-20] MEDS ORDERED: Acetaminophen 325 MG Tab PO PRN (22:04)
[2017-07-20] MEDS ORDERED: Metoprolol Tartrate 25 MG Tab PO ONE (22:07)
--- NOTE | 2017-07-20 22:10 | PCM.HP ---
H&P History of Present Illness - General Admit Problem/Dx: Admission Diagnosis/Problem Admission Diagnosis/Problem Chest pain, rule out acute myocardial infarction - History of Present Illness Initial Comments - Free Text/Narative: 42 yo female with pmh of HTN, DM who presents to the ED with a few hours of chest pain. She reports it a substernal stabbing pain. She has had this pain for several months and it comes and goes. She has been evaluated by cardiology as an outpatient and according to her the work up has been negative. Initial EKG and cardiac enzymes are negative for signs of ischemia chest Pain Score (Numeric/FACES): 10 - Related Data Allergies/Adverse Reactions: Allergies Allergy/AdvReac Type Severity Reaction Status Date / Time No Known Allergies Allergy Verified 07/20/17 21:16 Home Medications: Home Meds Insulin Aspart [Novolog Flexpen] See Protocol SQ BIDAC 04/25/14 [History] Lisinopril 10 mg PO DAILY 03/31/15 [History] Omeprazole Magnesium [Prilosec Otc] 20 mg PO DAILY 03/14/17 [History] Insulin Glargine,Hum.Rec.Anlog [Toujeo Solostar] 20 unit SQ BEDTIME #0 04/13/17 [Rx] Sertraline [Zoloft] 50 mg PO DAILY #30 tablet 04/13/17 [Rx] atorvaSTATin [Lipitor] 10 mg PO DAILY 07/20/17 [History] Metoprolol Succinate 50 mg PO DAILY #30 tab.er.24h 07/21/17 [Rx] Past Medical History - Past Health History Medical/Surgical History: Denies Medical/Surgical History Cardiovascular History: Reports: Hypertension, Other (See Below). Denies: CAD, Heart Failure Other Cardiovascular History: PVCs Gastrointestinal History: Reports: Other (See Below) Other Gastrointestinal History: Indigestion 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 History: Reports: Renal Disease. 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: Psychiatric History: Reports: Anxiety, Depression Endocrine/Metabolic History: Reports: Diabetes, Type I Dermatologic History: Reports: None - Infectious Disease History Infectious Disease History: Reports: Chicken Pox - Past Surgical History Dermatological Surgical History: Reports: None Social & Family History - Family History Family Medical History: Noncontributory Cardiac: Reports: Hypertension, [place] Other Cardiac Family History: Grandparents had heart failure 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: Reports: Other (See Below) Other 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 Family History: Mother had MS Endocrine/Metabolic: Reports: Other (See Below) Other Endocrine/Metabolic Family History: Father "had thyroid problems." - Tobacco Use Smoking Status *Q: Current Every Day Smoker Years of Tobacco use: 20 Packs/Tins Daily: 0.5 Used Tobacco, but Quit: No Second Hand Smoke Exposure: Yes - Caffeine Use Caffeine Use: Reports: Soda, Tea - Alcohol Use Days Per Week of Alcohol Use: 1 Number of Drinks Per Day: 1 Total Drinks Per Week: 1 - Recreational Drug Use Recreational Drug Use: No H&P Review of Systems - Review of Systems: Review Of Systems: ROS reveals no pertinent complaints other than HPI. Exam - Exam Exam: See Below - Vital Signs Vital Signs: Last Vital Signs Temp 36.4 C 07/20/17 20:57 Pulse 94 07/20/17 20:57 Resp 20 07/20/17 20:57 BP 147/67 H 07/20/17 21:18 Pulse Ox 95 07/20/17 20:57 Weight: 89 kg - Exam General: Alert, Oriented Neck: Supple, Trachea Midline Lungs: Clear to Auscultation, Normal Respiratory Effort Cardiovascular: Regular Rate, Regular Rhythm GI/Abdominal Exam: Soft, Non-Tender Extremities: Non-Tender, No Pedal Edema Skin: Warm, Dry, Intact - Patient Data Lab Results Last 24 hrs: Laboratory Results - last 24 hr 07/20/17 07/20/17 07/20/17 Range/Units 20:55 20:55 20:55 WBC 9.32 (4.0-11.0) K/uL RBC 4.21 L (4.30-5.90) M/uL Hgb 13.0 (12.0-16.0) g/dL Hct 38.3 (36.0-46.0) % MCV 91.0 (80.0-98.0) fL MCH 30.9 (27.0-32.0) pg MCHC 33.9 (31.0-37.0) g/dL RDW Std Deviation 46.0 (28.0-62.0) fl RDW Coeff of Jb 14 (11.0-15.0) % Plt Count 312 (150-400) K/uL MPV 10.50 (7.40-12.00) fL Neut % (Auto) 59.0 (48.0-80.0) % Lymph % (Auto) 26.4 (16.0-40.0) % Castro % (Auto) 9.3 (0.0-15.0) % Eos % (Auto) 4.4 (0.0-7.0) % Baso % (Auto) 0.9 (0.0-1.5) % Neut # (Auto) 5.5 (1.4-5.7) K/uL Lymph # (Auto) 2.5 H (0.6-2.4) K/uL Castro # (Auto) 0.9 H (0.0-0.8) K/uL Eos # (Auto) 0.4 (0.0-0.7) K/uL Baso # (Auto) 0.1 (0.0-0.1) K/uL Nucleated RBC % 0.0 /100WBC Nucleated RBCs # 0 K/uL INR 0.96 Sodium 141 (136-146) mmol/L Potassium 3.8 (3.5-5.1) mmol/L Chloride 109 (98-110) mmol/L Carbon Dioxide 22 (21-31) mmol/L BUN 16 (6.0-23.0) mg/dL Creatinine 0.8 (0.6-1.5) mg/dL Est Cr Clr Drug Dosing TNP Estimated GFR (MDRD) > 60.0 ml/min Glucose 155 H (60-110) mg/dL Calcium 9.7 (8.8-10.8) mg/dL Total Bilirubin 0.3 (0.1-1.5) mg/dL AST 28 (5-40) IU/L ALT 25 (8-54) IU/L Alkaline Phosphatase 69 (40-150) Troponin I < 0.10 (0.0-0.29) NG/ML Total Protein 7.1 (6.0-8.0) g/dL Albumin 4.3 (3.5-5.0) g/dL Globulin 2.8 (2.0-3.5) g/dL Albumin/Globulin Ratio 1.5 (1.3-2.8) Result Diagrams: 07/20/17 20:55 07/20/17 20:55 *Q Meaningful Use (ADM) - VTE *Q VTE Criteria *Q: - Stroke *Q Stroke Criteria *Q: - AMI *Q AMI Criteria *Q: Problem List Initiated/Reviewed/Updated: Yes Orders Last 24hrs: Active Orders 24 hr Category Date Time Status Admission Status [Patient Status] [ADT] Stat ADT 07/20/17 21:45 Active Antiembolic Devices [RC] PER UNIT ROUTINE Care 07/20/17 22:05 Ordered EKG Documentation Completion [RC] STAT Care 07/20/17 21:00 Active Oxygen Therapy [RC] PRN Care 07/20/17 22:04 Ordered Up ad Yesy [RC] ASDIRECTED Care 07/20/17 22:04 Ordered VTE/DVT Education [RC] PER UNIT ROUTINE Care 07/20/17 22:04 Ordered Vital Signs [RC] Q4H Care 07/20/17 22:04 Ordered [place] [employer] Diet [DIET] Diet 07/20/17 Breakfast Ordered Chest 1V Frontal [CR] Stat Exams 07/20/17 21:00 Taken TROPONIN I [CHEM] Q6H Lab 07/21/17 04:00 Ordered TROPONIN I [CHEM] Q6H Lab 07/21/17 10:00 Ordered Acetaminophen [Tylenol] Med 07/20/17 22:04 Ordered 650 mg PO Q4H PRN Insulin Aspart [NovoLOG] Med 07/21/17 07:30 Ordered See Protocol SUBCUT TIDAC Insulin Glarg,Human.Rec.Analog [LantUS Solostar] Med 07/21/17 21:00 Ordered 62 units SUBCUT BEDTIME Lisinopril [Prinivil] Med 07/21/17 09:00 Ordered 20 mg PO DAILY Morphine Med 07/20/17 22:04 Ordered 2 mg IVPUSH Q4H PRN Omeprazole Magnesium [Prilosec Otc] Med 07/21/17 09:00 Ordered 20 mg PO DAILY Ondansetron [Zofran] Med 07/20/17 22:04 Ordered 4 mg IVPUSH Q4H PRN Sodium Chloride 0.9% [Normal Saline] 500 ml Med 07/20/17 21:15 Active IV STAT atorvaSTATin [Lipitor] Med 07/21/17 09:00 Ordered 10 mg PO DAILY Sequential Compression Device [OM.PC] Per Unit Routine Oth 07/20/17 22:05 Ordered Resuscitation Status Routine Resus Stat 07/20/17 22:04 Ordered Medication Orders Acetaminophen (Tylenol) 650 mg PO Q4H PRN PRN Reason: Pain (Mild 1-3)/fever Atorvastatin Calcium (Lipitor) 10 mg PO DAILY WEI Sodium Chloride (Normal Saline) 500 mls @ 999 mls/hr IV STAT WEI Last Admin: 07/20/17 21:14 Dose: 999 mls/hr Insulin Aspart (Novolog) 0 unit SUBCUT TIDAC WEI PRN Reason: Protocol Insulin Glargine (Lantus Solostar) 62 units SUBCUT BEDTIME WEI Lisinopril (Prinivil) 20 mg PO DAILY WEI Morphine Sulfate (Morphine) 2 mg IVPUSH Q4H PRN PRN Reason: Pain (severe 7-10) Stop: 07/21/17 22:05 Non-Formulary Medication (Omeprazole Magnesium [Prilosec Otc]) 20 mg PO DAILY WEI Ondansetron HCl (Zofran) 4 mg IVPUSH Q4H PRN PRN Reason: Nausea Assessment/Plan Comment:: 42 female who presents with chest pain. She ruled out for acute coronary syndrome with serial negative cardiac enzymes. Metoprolol 50mg daily was added to her blood pressure medications as she was noted to be hypertensive during her stay.
[2017-07-20] MEDS ORDERED: INSULIN GLARGINE SUBCUT SCH (23:00)
[2017-07-21] MEDS ORDERED: Sodium Chloride 0.9% 1,000 ML IV SCH (00:15)
[2017-07-21] MEDS ORDERED: Morphine 2 MG/ML Syringe IVPUSH PRN (07:10)
[2017-07-21] MEDS ORDERED: Insulin Aspart 100 Units/ML 3 ML Pen SUBCUT SCH (07:30)
[2017-07-21] MEDS ORDERED: Omeprazole 20 MG Cap.CR PO SCH (07:30)
[2017-07-21] MEDS ORDERED: Sertraline 50 MG Tab PO SCH (09:00)
[2017-07-21] MEDS ORDERED: Lisinopril 5 MG Tab PO SCH (09:00)
[2017-07-21] MEDS ORDERED: atorvaSTATin 10 MG Tab PO SCH (09:00)
[2017-07-21 11:14] VITALS: BP 132/67
--- NOTE | 2017-07-21 15:15 | CR ---
EXAM DATE: 07/20/17 PATIENT'S AGE: 42 Patient: CHEY MARIE Facility: [place], [place] Site . Site : 1975 Study: XRay Chest [id number]/19/2018 9:24:19 PM Ordering Physician: Doctor Hale Final Report: INDICATION: CP, SOB CHEST, ONE VIEW An AP radiograph of the chest was performed. Comparison: 04/11/2017. The lungs appear clear and no pleural effusions are identified. The cardiomediastinal silhouette and pulmonary vasculature appear normal, as do the visualized bones. IMPRESSION: No acute intrathoracic abnormality identified. CHATO SAGE MD [employer] Dictated by: Keshav Sage MD @ 07/20/2017 21:36:24 (Electronic Signature) Report Signed by Proxy. [facility]
== END 2017-07-21 12:07 | disposition home or self-care (01) ==
LOC: MW.ED 20:57 → MW.MS 21:45
PROVIDERS: ADMIT Internal Medicine; ATTEND Internal Medicine
DX: R07.2 Precordial pain (principal); F41.9 Anxiety disorder, unspecified; F32.9 Major depressive disorder, single episode, unspecified; E10.9 Type 1 diabetes mellitus without complications; F17.210 Nicotine dependence, cigarettes, uncomplicated; K21.9 Gastro-esophageal reflux disease without esophagitis; I10 Essential (primary) hypertension; Z79.899 Other long term (current) drug therapy
CPT/HCPCS: 36415; 71045; 80053; 82962; 84484; 85025; 85610; 96374; 96375; 99285; A9270; G0378; J1815; J1885; J2270; J7040

== ENCOUNTER 2017-09-13 08:36 | Emergency (ER) | payer OTHER ==
[2017-09-13] MEDS ORDERED: Sodium Chloride 0.9% 1,000 ML IV ONE (08:40)
--- NOTE | 2017-09-13 08:42 | EDM.PDOC ---
ED HPI GENERAL MEDICAL PROBLEM - General Stated Complaint: DIABETIC ISSUES Time Seen by Provider: 09/13/17 08:39 - History of Present Illness INITIAL COMMENTS - FREE TEXT/NARRATIVE: HISTORY AND PHYSICAL: History of present illness: Patient's 42-year-old female history of insulin-dependent diabetes who presents status post hypoglycemics episode paramedics were called patient's house for decreased level of consciousness and was noted blood sugar of 30 they gave her an amp of D50 repeat blood sugar was 200 patient initially refused transport but subsequently agreed she is here now and denies any fever chills nausea vomiting she states she took her usual dose of insulin last night and has been eating regularly. Review of systems: As per history of present illness and below otherwise all systems reviewed and negative. Past medical history: As per history of present illness and as reviewed below otherwise noncontributory. Surgical history: As per history of present illness and as reviewed below otherwise noncontributory. Social history: No reported history of drug or alcohol abuse. Family history: As per history of present illness and as reviewed below otherwise noncontributory. Physical exam: HEENT: Atraumatic, normocephalic, pupils reactive, negative for conjunctival pallor or scleral icterus, mucous membranes moist, throat clear, neck supple, nontender, trachea midline. Lungs: Clear to auscultation, breath sounds equal bilaterally, chest nontender. Heart: S1S2, regular, negative for clicks, rubs, or JVD. Abdomen: Soft, nondistended, nontender. Negative for masses or hepatosplenomegaly. Negative for costovertebral tenderness. Pelvis: Stable nontender. 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: Deferred. Rectal: Deferred. Extremities: Atraumatic, negative for cords or calf pain. Neurovascular unremarkable. Neuro: Awake, alert, oriented. Cranial nerves II through XII unremarkable. Cerebellum unremarkable. Motor and sensory unremarkable throughout. Exam nonfocal. Diagnostics: CBC CMP hCG Therapeutics: Normal saline 1 L bolus general diet tray Impression: #1 hypoglycemic episode #2 insulin reaction Definitive disposition and diagnosis as appropriate pending reevaluation and review of above. - Related Data Allergies Allergy/AdvReac Type Severity Reaction Status Date / Time No Known Allergies Allergy Verified 09/13/17 08:48 Home Meds: Home Meds Insulin Aspart [Novolog Flexpen] See Protocol SQ BIDAC 11/25/14 [History] Lisinopril 10 mg PO DAILY 03/31/15 [History] Omeprazole Magnesium [Prilosec Otc] 20 mg PO DAILY 03/14/17 [History] Insulin Glargine,Hum.Rec.Anlog [Tourolando Solostar] 20 unit SQ BEDTIME #0 04/13/17 [Rx] Sertraline [Zoloft] 50 mg PO DAILY #30 tablet 04/13/17 [Rx] atorvaSTATin [Lipitor] 10 mg PO DAILY 07/20/17 [History] Metoprolol Succinate 50 mg PO DAILY #30 tab.er.24h 07/21/17 [Rx] Past Medical History - Past Health History Medical/Surgical History: Denies Medical/Surgical History Cardiovascular History: Reports: Hypertension, Other (See Below). Denies: CAD, Heart Failure Other Cardiovascular History: PVCs Gastrointestinal History: Reports: Other (See Below) Other Gastrointestinal History: Indigestion 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 History: Reports: Renal Disease. 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: Psychiatric History: Reports: Anxiety, Depression Endocrine/Metabolic History: Reports: Diabetes, Type I Dermatologic History: Reports: None - Infectious Disease History Infectious Disease History: Reports: Chicken Pox - Past Surgical History Dermatological Surgical History: Reports: None Social & Family History - Family History Family Medical History: Noncontributory Cardiac: Reports: Hypertension, [place] Other Cardiac Family History: Grandparents had heart failure 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: Reports: Other (See Below) Other 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 Family History: Mother had MS Endocrine/Metabolic: Reports: Other (See Below) Other Endocrine/Metabolic Family History: Father "had thyroid problems." - Tobacco Use Smoking Status *Q: Current Every Day Smoker Years of Tobacco use: 20 Packs/Tins Daily: 0.5 Used Tobacco, but Quit: No Second Hand Smoke Exposure: Yes - Caffeine Use Caffeine Use: Reports: Soda, Tea - Alcohol Use Days Per Week of Alcohol Use: 1 Number of Drinks Per Day: 1 Total Drinks Per Week: 1 - Recreational Drug Use Recreational Drug Use: No ED ROS GENERAL - Review of Systems Review Of Systems: ROS reveals no pertinent complaints other than HPI. ED EXAM, GENERAL - Physical Exam Exam: See Below (dictation) Course - Vital Signs Last Recorded V/S: Last Vital Signs Temp 35.6 C 09/13/17 08:40 Pulse 82 09/13/17 08:40 Resp 20 09/13/17 08:40 BP 153/80 H 09/13/17 08:40 Pulse Ox 97 09/13/17 08:40 - Orders/Labs/Meds Labs: Laboratory Tests 09/13/17 09/13/17 09/13/17 Range/Units 08:45 08:45 08:45 WBC 10.81 (4.0-11.0) K/uL RBC 4.84 (4.30-5.90) M/uL Hgb 14.9 (12.0-16.0) g/dL Hct 44.1 (36.0-46.0) % MCV 91.1 (80.0-98.0) fL MCH 30.8 (27.0-32.0) pg MCHC 33.8 (31.0-37.0) g/dL RDW Std Deviation 45.8 (28.0-62.0) fl RDW Coeff of Jb 14 (11.0-15.0) % Plt Count 282 (150-400) K/uL MPV 11.20 (7.40-12.00) fL Neut % (Auto) 69.8 (48.0-80.0) % Lymph % (Auto) 19.4 (16.0-40.0) % [facility] % (Auto) 6.2 (0.0-15.0) % Eos % (Auto) 4.0 (0.0-7.0) % Baso % (Auto) 0.6 (0.0-1.5) % Neut # (Auto) 7.5 H (1.4-5.7) K/uL Lymph # (Auto) 2.1 (0.6-2.4) K/uL [facility] [place] # (Auto) 0.7 (0.0-0.8) K/uL Eos # (Auto) 0.4 (0.0-0.7) K/uL Baso # (Auto) 0.1 (0.0-0.1) K/uL Nucleated RBC % 0.0 /100WBC Nucleated RBCs # 0 K/uL Sodium 145 (136-145) mmol/L Potassium 3.4 L (3.5-5.1) mmol/L Chloride 108 H (98-107) mmol/L Carbon Dioxide 26.2 (21.0-32.0) mmol/L BUN 23 H (7.0-18.0) mg/dL Creatinine 0.9 (0.6-1.0) mg/dL Est Cr Clr Drug Dosing 69.60 mL/min Estimated GFR (MDRD) > 60.0 ml/min Glucose 103 (74-106) mg/dL POC Glucose (60-110) mg/dL Calcium 9.2 (8.5-10.1) mg/dL Total Bilirubin 0.2 (0.2-1.0) mg/dL AST 24 (15-37) IU/L ALT 25 (14-63) IU/L Alkaline Phosphatase 89 (46-116) U/L Total Protein 8.2 (6.4-8.2) g/dL Albumin 4.1 (3.4-5.0) g/dL Globulin 4.1 H (2.0-3.5) g/dL Albumin/Globulin Ratio 1.0 L (1.3-2.8) HCG, Qual NEGATIVE (NEG) Ethyl Alcohol <3 mg/dL 09/13/17 09/13/17 09/13/17 Range/Units 08:45 09:21 09:48 WBC (4.0-11.0) K/uL RBC (4.30-5.90) M/uL Hgb (12.0-16.0) g/dL Hct (36.0-46.0) % MCV (80.0-98.0) fL MCH (27.0-32.0) pg MCHC (31.0-37.0) g/dL RDW Std Deviation (28.0-62.0) fl RDW Coeff of Jb (11.0-15.0) % Plt Count (150-400) K/uL MPV (7.40-12.00) fL Neut % (Auto) (48.0-80.0) % Lymph % (Auto) (16.0-40.0) % [facility] % (Auto) (0.0-15.0) % Eos % (Auto) (0.0-7.0) % Baso % (Auto) (0.0-1.5) % Neut # (Auto) (1.4-5.7) K/uL Lymph # (Auto) (0.6-2.4) K/uL [facility] [place] # (Auto) (0.0-0.8) K/uL Eos # (Auto) (0.0-0.7) K/uL Baso # (Auto) (0.0-0.1) K/uL Nucleated RBC % /100WBC Nucleated RBCs # K/uL Sodium (136-145) mmol/L Potassium (3.5-5.1) mmol/L Chloride (98-107) mmol/L Carbon Dioxide (21.0-32.0) mmol/L BUN (7.0-18.0) mg/dL Creatinine (0.6-1.0) mg/dL Est Cr Clr Drug Dosing mL/min Estimated GFR (MDRD) ml/min Glucose (74-106) mg/dL POC Glucose 126 H 60 44 L (60-110) mg/dL Calcium (8.5-10.1) mg/dL Total Bilirubin (0.2-1.0) mg/dL AST (15-37) IU/L ALT (14-63) IU/L Alkaline Phosphatase (46-116) U/L Total Protein (6.4-8.2) g/dL Albumin (3.4-5.0) g/dL Globulin (2.0-3.5) g/dL Albumin/Globulin Ratio (1.3-2.8) HCG, Qual (NEG) Ethyl Alcohol mg/dL 09/13/17 Range/Units 10:04 WBC (4.0-11.0) K/uL RBC (4.30-5.90) M/uL Hgb (12.0-16.0) g/dL Hct (36.0-46.0) % MCV (80.0-98.0) fL MCH (27.0-32.0) pg MCHC (31.0-37.0) g/dL RDW Std Deviation (28.0-62.0) fl RDW Coeff of Jb (11.0-15.0) % Plt Count (150-400) K/uL MPV (7.40-12.00) fL Neut % (Auto) (48.0-80.0) % Lymph % (Auto) (16.0-40.0) % [facility] [place] % (Auto) (0.0-15.0) % Eos % (Auto) (0.0-7.0) % Baso % (Auto) (0.0-1.5) % Neut # (Auto) (1.4-5.7) K/uL Lymph # (Auto) (0.6-2.4) K/uL [facility] [place] [facility] # (Auto) (0.0-0.8) K/uL Eos # (Auto) (0.0-0.7) K/uL Baso # (Auto) (0.0-0.1) K/uL Nucleated RBC % /100WBC Nucleated RBCs # K/uL Sodium (136-145) mmol/L Potassium (3.5-5.1) mmol/L Chloride (98-107) mmol/L Carbon Dioxide (21.0-32.0) mmol/L BUN (7.0-18.0) mg/dL Creatinine (0.6-1.0) mg/dL Est Cr Clr Drug Dosing mL/min Estimated GFR (MDRD) ml/min Glucose (74-106) mg/dL POC Glucose 175 H (60-110) mg/dL Calcium (8.5-10.1) mg/dL Total Bilirubin (0.2-1.0) mg/dL AST (15-37) IU/L ALT (14-63) IU/L Alkaline Phosphatase (46-116) U/L Total Protein (6.4-8.2) g/dL Albumin (3.4-5.0) g/dL Globulin (2.0-3.5) g/dL Albumin/Globulin Ratio (1.3-2.8) HCG, Qual (NEG) Ethyl Alcohol mg/dL Meds: Medications Discontinued Medications Generic Name Dose Route Start Last Admin Trade Name Freq PRN Reason Stop Dose Admin Dextrose/Water 50 ml 09/13/17 09:56 09/13/17 09:58 Dextrose 50% In Water IVPUSH 09/13/17 09:57 50 ml ONETIME ONE Administration Sodium Chloride 1,000 mls @ 999 mls/hr 09/13/17 08:40 09/13/17 08:46 Normal Saline IV 09/13/17 09:40 999 mls/hr STAT ONE Administration Ibuprofen 400 mg 09/13/17 09:37 09/13/17 09:44 Motrin PO 09/13/17 09:38 400 mg ONETIME ONE Administration Departure - Departure Time of Disposition: 08:42 Disposition: Home, Self-Care 01 Condition: Good Clinical Impression: Hyperglycemia, Insulin reaction - Discharge Information Additional Instructions: The following information is given to patients seen in the emergency department who are being discharged to home. This information is to outline your options for follow-up care. We provide all patients seen in our emergency department with a follow-up referral. The need for follow-up, as well as the timing and circumstances, are variable depending upon the specifics of your emergency department visit. If you don't have a primary care physician on staff, we will provide you with a referral. We always advise you to contact your personal physician following an emergency department visit to inform them of the circumstance of the visit and for follow-up with them and/or the need for any referrals to a consulting specialist. The emergency department will also refer you to a specialist when appropriate. This referral assures that you have the opportunity for followup care with a specialist. All of these measure are taken in an effort to provide you with optimal care, which includes your followup. Under all circumstances we always encourage you to contact your private physician who remains a resource for coordinating your care. When calling for followup care, please make the office aware that this follow-up is from your recent emergency room visit. If for any reason you are refused follow-up, please contact the emergency department at and asked to speak to the emergency department charge nurse. Push fluids check blood sugar 4 times daily 1 day sliding scale as directed eat regularly return as needed as discussed and follow up with your family doctor
[2017-09-13 09:31] LABS: CHLORIDE,CL 108 mmol/L (98-107); SODIUM,NA 145 mmol/L (136-145)
[2017-09-13] MEDS ORDERED: Ibuprofen 400 MG Tab PO ONE (09:37)
[2017-09-13] MEDS ORDERED: 50% Dextrose in Water 50 ML Syringe IVPUSH ONE (09:56)
[2017-09-13 13:09] VITALS: BP 160/78
== END 2017-09-13 10:45 | disposition home or self-care (01) ==
LOC: MW.ED 08:36
DX: E10.649 Type 1 diabetes mellitus with hypoglycemia without coma (principal); T38.3X5A Adverse effect of insulin and oral hypoglycemic [antidiabetic] drugs, initial encounter; I10 Essential (primary) hypertension; F32.9 Major depressive disorder, single episode, unspecified; F41.9 Anxiety disorder, unspecified; F17.210 Nicotine dependence, cigarettes, uncomplicated; Z79.899 Other long term (current) drug therapy
CPT/HCPCS: 36415; 80053; 82962; 84703; 85025; 96361; 96374; 99284; A9270; G0480; J7040; J7060; 99283

== ENCOUNTER 2018-09-11 07:25 | Emergency (ER) | payer SELFPAY ==
--- NOTE | 2018-09-11 07:40 | EDM.PDOC ---
ED HPI GENERAL MEDICAL PROBLEM - General Chief Complaint: ENT Problem Stated Complaint: RT SIDE OF FACE IS SWOLLEN Time Seen by Provider: 09/11/18 07:39 Source of Information: Reports: Patient - History of Present Illness INITIAL COMMENTS - FREE TEXT/NARRATIVE: HISTORY AND PHYSICAL: History of present illness: [Patient presents with dental pain on right upper incisor associated with swelling consistent with early dental abscess, she has been having difficulty getting into a dentist but has found a dentist in [facility] that will take her insurance she is going to be seeing him on Thursday No fever nausea vomiting chills sweats] Review of systems: As per history of present illness and below otherwise all systems reviewed and negative. Past medical history: As per history of present illness and as reviewed below otherwise noncontributory. Surgical history: As per history of present illness and as reviewed below otherwise noncontributory. Social history: No reported history of drug or alcohol abuse. Family history: As per history of present illness and as reviewed below otherwise noncontributory. Physical exam: HEENT: Atraumatic, normocephalic, pupils reactive, negative for conjunctival pallor or scleral icterus, mucous membranes moist, throat clear, neck supple, nontender, trachea midline. Calling in tenderness consistent with dental abscess associated with dental carry right upper incisor Lungs: Clear to auscultation, breath sounds equal bilaterally, chest nontender. Heart: S1S2, regular, negative for clicks, rubs, or JVD. Abdomen: Soft, nondistended, nontender. Negative for masses or hepatosplenomegaly. Negative for costovertebral tenderness. Pelvis: Stable nontender. 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: Deferred. Rectal: Deferred. Extremities: Atraumatic, negative for cords or calf pain. Neurovascular unremarkable. Neuro: Awake, alert, oriented. Cranial nerves II through XII unremarkable. Cerebellum unremarkable. Motor and sensory unremarkable throughout. Exam nonfocal. Diagnostics: [Clinical ] Therapeutics: [Sandhya Valadez] Impression: Dental abscess ] Definitive disposition and diagnosis as appropriate pending reevaluation and review of above. - Related Data Allergies Allergy/AdvReac Type Severity Reaction Status Date / Time No Known Allergies Allergy Verified 09/11/18 07:37 Past Medical History - Past Health History Medical/Surgical History: Denies Medical/Surgical History Cardiovascular History: Reports: Hypertension, Other (See Below). Denies: CAD, Heart Failure Other Cardiovascular History: PVCs Gastrointestinal History: Reports: Other (See Below) Other Gastrointestinal History: Indigestion 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 History: Reports: Renal Disease. 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: Psychiatric History: Reports: Anxiety, Depression Endocrine/Metabolic History: Reports: Diabetes, Type I Dermatologic History: Reports: None - Infectious Disease History Infectious Disease History: Reports: Chicken Pox - Past Surgical History Dermatological Surgical History: Reports: None Social & Family History - Family History Family Medical History: Noncontributory Cardiac: Reports: Hypertension, [place] Other Cardiac Family History: Grandparents had heart failure 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: Reports: Other (See Below) Other 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 Family History: Mother had MS Endocrine/Metabolic: Reports: Other (See Below) Other Endocrine/Metabolic Family History: Father "had thyroid problems." - Caffeine Use Caffeine Use: Reports: Soda, Tea ED ROS GENERAL - Review of Systems Review Of Systems: See Below ED EXAM, GENERAL - Physical Exam Exam: See Below Departure - Departure Time of Disposition: 07:40 Disposition: Home, Self-Care 01 Condition: Good Clinical Impression: Dental abscess - Discharge Information Referrals: PCP,None [Primary Care Provider] - Additional Instructions: The following information is given to patients seen in the emergency department who are being discharged to home. This information is to outline your options for follow-up care. We provide all patients seen in our emergency department with a follow-up referral. The need for follow-up, as well as the timing and circumstances, are variable depending upon the specifics of your emergency department visit. If you don't have a primary care physician on staff, we will provide you with a referral. We always advise you to contact your personal physician following an emergency department visit to inform them of the circumstance of the visit and for follow-up with them and/or the need for any referrals to a consulting specialist. The emergency department will also refer you to a specialist when appropriate. This referral assures that you have the opportunity for follow-up care with a specialist. All of these measure are taken in an effort to provide you with optimal care, which includes your follow-up. Under all circumstances we always encourage you to contact your private physician who remains a resource for coordinating your care. When calling for follow-up care, please make the office aware that this follow-up is from your recent emergency room visit. If for any reason you are refused follow-up, please contact the [facility] emergency department at and asked to speak to the emergency department charge nurse.
[2018-09-11] MEDS ORDERED: Benzocaine 20% Topical Spray UD MUCMEM ONE (07:41)
[2018-09-11] MEDS ORDERED: Lidocaine 2% Viscous Solution 15 ML Cup PO ONE (07:41)
[2018-09-11 08:02] VITALS: BP 152/74
== END 2018-09-11 08:17 | disposition home or self-care (01) ==
LOC: MW.ED 07:25
DX: K04.7 Periapical abscess without sinus (principal); I10 Essential (primary) hypertension; E10.9 Type 1 diabetes mellitus without complications
CPT/HCPCS: 99282; A9270

== ENCOUNTER 2018-09-12 04:17 | Observation (INO) | payer OTHER ==
[2018-09-12] MEDS ORDERED: Sodium Chloride 0.9% 10 ML Syringe FLUSH PRN (04:22)
[2018-09-12] MEDS ORDERED: Ondansetron 4 MG/2 ML SDV IVPUSH ONE (04:22)
[2018-09-12] MEDS ORDERED: Sodium Chloride 0.9% 1,000 ML IV ONE ×2 (04:22→05:05)
[2018-09-12] MEDS ORDERED: Sodium Chloride 0.9% 2.5 ML Syringe FLUSH PRN (04:22)
--- NOTE | 2018-09-12 04:24 | EDM.PDOC ---
ED HPI GENERAL MEDICAL PROBLEM - General Chief Complaint: Diabetic Complaint Stated Complaint: AMB Time Seen by Provider: 09/12/18 04:18 - History of Present Illness INITIAL COMMENTS - FREE TEXT/NARRATIVE: HISTORY AND PHYSICAL: History of present illness: The patient is a 43-year-old female with a history of type 1 diabetes who has insulin pump and was seen here yesterday morning, less than 24 hours ago, with complaints of dental pain and a dental infection to her right upper incisor area near tooth 4 and 5. The provider note from yesterday morning was reviewed and she was given dental balls and gentamicin and Magdalena for pain. The patient presents as morning the EMS after heard her having snoring respirations and she was unresponsive so he called EMS and her blood glucose was 31. They gave 1 mg of glucagon because they were unable to get IV access. Repeat blood sugar after glucagon was 47 and here on arrival it is 77. The patient initially had decreased level of consciousness on arrival and then proceeded to sit up and start vomiting mostly bile tinged fluid and clear mucus. She is awake and answering simple questions by nodding her head and says she is not having any chest pain but does feel like it's difficult to catch her breath but this is right after having an episode of vomiting. She denies any preceding abdominal pain nausea or vomiting but does say that she has swelling of the right side of her face due to this infection. At this point her is just joining us in the room and I will interview him as well as the patient more once she is able to stop vomiting. Please see below for more details On arrival the patient's insulin pump is stopped. The patient was in bed during this event and there was no history of any trauma. Review of systems: As per history of present illness and below otherwise all systems reviewed and negative. Past medical history: As per history of present illness and as reviewed below otherwise noncontributory. Surgical history: As per history of present illness and as reviewed below otherwise noncontributory. Social history: No reported history of drug or alcohol abuse. Family history: As per history of present illness and as reviewed below otherwise noncontributory. Physical exam: General: Well-developed well-nourished female who is nontoxic and vital signs were noted by me. The vomitus is light green yellow bilious material with mucus and does not have any odor to it HEENT: Atraumatic, normocephalic, pupils reactive, sclerae are minimally injected but the patient just had vomiting negative for conjunctival pallor or scleral icterus, mucous membranes moist, throat clear, neck supple, nontender, trachea midline. There is some soft tissue swelling seen at the right maxillary area consistent with the site of her dental infection. The patient has a partial plate in brace which she will not remove it; at teeth 4 and 5 there is surrounding gum swelling and some dental disease appreciated but no fluctuance. Lungs: Clear to auscultation, breath sounds equal bilaterally, chest nontender. Heart: S1S2, regular rate and rhythm no overt murmurs Abdomen: Soft, nondistended, nontender. Completely soft and nontender or my evaluation bowel sounds are slightly hypoactive. There is no rebound or guarding and no tympany Negative for masses or hepatosplenomegaly. Negative for costovertebral tenderness. Pelvis: Stable nontender. 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: Deferred. Rectal: Deferred. Extremities: Atraumatic, negative for cords or calf pain. Neurovascular unremarkable. Full range of motion without defects or deficits Neuro: Awake, alert, oriented. Cranial nerves II through XII unremarkable. Cerebellum unremarkable. Motor and sensory unremarkable throughout. Exam nonfocal. Back: There are no midline step-offs or defects of the thoracic or lumbar spine no posterior rib or posterior pelvis defects and no soft tissue injuries appreciated on the patient's back. Skin: Turgor is normal and there are no overt rashes or lesions or any evidence of trauma Diagnostics: Accu-Chek on arrival, CBC CMP amylase lipase alcohol level UA serum ketones Therapeutics: IV O2 pulse ox IV fluids Abdulaziz Barbour, patient requested medication for her dental pain and I will give her some Toradol Patient is now more awake and talkative and says that she only uses her insulin pump which doses her insulin and it is regular and she takes no long-acting. She says she does not like her insulin pump and her chimes in that he does not like it either as he keeps giving her insulin when she doesn't need it. The patient says she would like to throw it in the garbage. The patient says that yesterday she had a normal day other than the tooth pain and facial swelling of her dental problem and had no abdominal pain nausea vomiting no diarrhea and the last thing that she recalls is going to the bathroom and then going to bed. She says that the swelling in her face was significant yesterday morning and it is already done to improve. The reiterates that he is very frustrated about this. He did try to get her take something by mouth before he called EMS because he knew that her blood sugar was low. According to the computer the patient had a visit almost exactly 1 year ago on September 13, 2017 for an exact same presentation of snoring respirations unable to be aroused and a blood sugar of 30. The patient says that with her blood sugars she doesn't normally vomit. That she has had a cholecystectomy and a bilateral tubal ligation. She does have acid reflux has never had gastroparesis. She also has a history of hypertension Patient says that she does not like the insulin pump she's currently using and she does have a better one that is on its way here to her from another location. She does have an Accu-Chek machine at home that she can monitor her blood sugar and we have talked about that. She is aware that the infection in her tooth is likely triggering the instability of her blood sugar and that she needs to continue taking the antibiotics that she is on. In light of the slight bump in her WBC count without left shift I discussed with her giving a dose of Rocephin here through the IV to just help boost her with respect to the infection and she will continue the clindamycin at home. She currently is not having any nausea or vomiting. Impression: Hypoglycemia/insulin reaction Dental infection right upper , on antibiotic therapy Definitive disposition and diagnosis as appropriate pending reevaluation and review of above. - Related Data Allergies Allergy/AdvReac Type Severity Reaction Status Date / Time No Known Allergies Allergy Verified 09/12/18 04:27 Home Meds: Home Meds Citalopram [Citalopram HBr] 1 tab PO DAILY 09/11/18 [History] Insulin Regular, Human [NovoLIN R] 72 units SQ DAILY 09/11/18 [History] Lisinopril 1 tab PO DAILY 09/11/18 [History] Past Medical History - Past Health History Medical/Surgical History: Denies Medical/Surgical History Cardiovascular History: Reports: Hypertension, Other (See Below) Other Cardiovascular History: PVCs Gastrointestinal History: Reports: Other (See Below) Other Gastrointestinal History: Indigestion 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 History: Reports: Renal Disease [employer] History: Reports: Psychiatric History: Reports: Anxiety, Depression Endocrine/Metabolic History: Reports: Diabetes, Type I Other Endocrine/Metabolic History: On Insulin Pump Dermatologic History: Reports: None - Infectious Disease History Infectious Disease History: Reports: Chicken Pox - Past Surgical History Dermatological Surgical History: Reports: None Social & Family History - Family History Family Medical History: Noncontributory Cardiac: Reports: Hypertension, [place] Other Cardiac Family History: Grandparents had heart failure 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: Reports: Other (See Below) Other 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 Family History: Mother had MS Endocrine/Metabolic: Reports: Other (See Below) Other Endocrine/Metabolic Family History: Father "had thyroid problems." - Caffeine Use Caffeine Use: Reports: Soda ED ROS GENERAL - Review of Systems Review Of Systems: ROS reveals no pertinent complaints other than HPI. ED EXAM GENERAL NO PERIP PULSE - Physical Exam Exam: See Below (see dictation) Course - Vital Signs Last Recorded V/S: Last Vital Signs Temp 36.5 C 09/12/18 04:19 Pulse 77 09/12/18 04:50 Resp 17 09/12/18 04:50 BP 156/68 H 09/12/18 04:50 Pulse Ox 100 09/12/18 04:50 - Orders/Labs/Meds Orders: Active Orders 24 hr Category Date Time Status Blood Glucose Check, Bedside [] ONETIME Care 09/12/18 04:22 Active Blood Glucose Check, Bedside [] ONETIME Care 09/12/18 04:47 Active Oxygen Therapy, ED [RC] ASDIRECTED Care 09/12/18 04:21 Active Pulse Oximetry [RC] ASDIRECTED Care 09/12/18 04:21 Active Ketorolac [Toradol] Med 09/12/18 05:42 Once 30 mg IVPUSH ONETIME ONE Sodium Chloride 0.9% [Normal Saline] 1,000 ml Med 09/12/18 05:05 Active IV STAT Sodium Chloride 0.9% [Saline Flush] Med 09/12/18 04:22 Active 10 ml FLUSH ASDIRECTED PRN Sodium Chloride 0.9% [Saline Flush] Med 09/12/18 04:22 Active 2.5 ml FLUSH ASDIRECTED PRN Saline Lock Insert [OM.PC] Stat Oth 09/12/18 04:21 Ordered Medication Orders Sodium Chloride (Normal Saline) 1,000 mls @ 999 mls/hr IV STAT ONE Stop: 09/12/18 06:05 Last Admin: 09/12/18 05:31 Dose: 999 mls/hr Sodium Chloride (Saline Flush) 10 ml FLUSH ASDIRECTED PRN PRN Reason: Keep Vein Open Sodium Chloride (Saline Flush) 2.5 ml FLUSH ASDIRECTED PRN PRN Reason: Keep Vein Open Labs: Laboratory Tests 09/12/18 09/12/18 09/12/18 Range/Units 04:15 04:15 04:15 WBC 15.27 H (4.0-11.0) K/uL RBC 4.74 (4.30-5.90) M/uL Hgb 14.3 (12.0-16.0) g/dL Hct 42.7 (36.0-46.0) % MCV 90.1 (80.0-98.0) fL MCH 30.2 (27.0-32.0) pg MCHC 33.5 (31.0-37.0) g/dL RDW Std Deviation 47.0 (28.0-62.0) fl RDW Coeff of Jb 14 (11.0-15.0) % Plt Count 322 (150-400) K/uL MPV 10.50 (7.40-12.00) fL Neut % (Auto) 65.5 (48.0-80.0) % Lymph % (Auto) 23.5 (16.0-40.0) % [place] % (Auto) 7.2 (0.0-15.0) % Eos % (Auto) 3.5 (0.0-7.0) % Baso % (Auto) 0.3 (0.0-1.5) % Neut # (Auto) 10.0 H (1.4-5.7) K/uL Lymph # (Auto) 3.6 H (0.6-2.4) K/uL [place] # (Auto) 1.1 H (0.0-0.8) K/uL Eos # (Auto) 0.5 (0.0-0.7) K/uL Baso # (Auto) 0.1 (0.0-0.1) K/uL Nucleated RBC % 0.0 /100WBC Nucleated RBCs # 0 K/uL Sodium 142 (136-145) mmol/L Potassium 3.7 (3.5-5.1) mmol/L Chloride 107 (98-107) mmol/L Carbon Dioxide 22.7 (21.0-32.0) mmol/L BUN 26 H (7.0-18.0) mg/dL Creatinine 1.0 (0.6-1.0) mg/dL Est Cr Clr Drug Dosing 64.60 mL/min Estimated GFR (MDRD) > 60.0 ml/min Glucose 73 L (74-106) mg/dL Calcium 8.9 (8.5-10.1) mg/dL Total Bilirubin 0.3 (0.2-1.0) mg/dL AST 23 (15-37) IU/L ALT 25 (14-63) IU/L Alkaline Phosphatase 86 (46-116) U/L Total Protein 8.3 H (6.4-8.2) g/dL Albumin 4.1 (3.4-5.0) g/dL Globulin 4.2 H (2.6-4.0) g/dL Albumin/Globulin Ratio 1.0 (0.9-1.6) Amylase 45 (25-115) U/L Lipase 143 (73-393) U/L Urine Color Urine Appearance Urine pH (5.0-8.0) Ur Specific [place] (1.001-1.035) Urine Protein (NEGATIVE) mg/dL Urine Glucose (UA) (NEGATIVE) mg/dL Urine Ketones (NEGATIVE) mg/dL Urine Occult Blood (NEGATIVE) Urine Nitrite (NEGATIVE) Urine Bilirubin (NEGATIVE) Urine Urobilinogen (<2.0) EU/dL Ur Leukocyte Esterase (NEGATIVE) Ethyl Alcohol <3 mg/dL Ketones NEGATIVE (NEG) 09/12/18 Range/Units 05:11 WBC (4.0-11.0) K/uL RBC (4.30-5.90) M/uL Hgb (12.0-16.0) g/dL Hct (36.0-46.0) % MCV (80.0-98.0) fL MCH (27.0-32.0) pg MCHC (31.0-37.0) g/dL RDW Std Deviation (28.0-62.0) fl RDW Coeff of Jb (11.0-15.0) % Plt Count (150-400) K/uL MPV (7.40-12.00) fL Neut % (Auto) (48.0-80.0) % Lymph % (Auto) (16.0-40.0) % [place] % (Auto) (0.0-15.0) % Eos % (Auto) (0.0-7.0) % Baso % (Auto) (0.0-1.5) % Neut # (Auto) (1.4-5.7) K/uL Lymph # (Auto) (0.6-2.4) K/uL [place] # (Auto) (0.0-0.8) K/uL Eos # (Auto) (0.0-0.7) K/uL Baso # (Auto) (0.0-0.1) K/uL Nucleated RBC % /100WBC Nucleated RBCs # K/uL Sodium (136-145) mmol/L Potassium (3.5-5.1) mmol/L Chloride (98-107) mmol/L Carbon Dioxide (21.0-32.0) mmol/L BUN (7.0-18.0) mg/dL Creatinine (0.6-1.0) mg/dL Est Cr Clr Drug Dosing mL/min Estimated GFR (MDRD) ml/min Glucose (74-106) mg/dL Calcium (8.5-10.1) mg/dL Total Bilirubin (0.2-1.0) mg/dL AST (15-37) IU/L ALT (14-63) IU/L Alkaline Phosphatase (46-116) U/L Total Protein (6.4-8.2) g/dL Albumin (3.4-5.0) g/dL Globulin (2.6-4.0) g/dL Albumin/Globulin Ratio (0.9-1.6) Amylase (25-115) U/L Lipase (73-393) U/L Urine Color DARK YELLOW Urine Appearance SLT CLOUDY Urine pH 5.5 (5.0-8.0) Ur Specific [place] >= 1.030 (1.001-1.035) Urine Protein NEGATIVE (NEGATIVE) mg/dL Urine Glucose (UA) NEGATIVE (NEGATIVE) mg/dL Urine Ketones NEGATIVE (NEGATIVE) mg/dL Urine Occult Blood NEGATIVE (NEGATIVE) Urine Nitrite NEGATIVE (NEGATIVE) Urine Bilirubin NEGATIVE (NEGATIVE) Urine Urobilinogen 0.2 (<2.0) EU/dL Ur Leukocyte Esterase NEGATIVE (NEGATIVE) Ethyl Alcohol mg/dL Ketones (NEG) Meds: Medications Generic Name Dose Route Start Last Admin Trade Name Freq PRN Reason Stop Dose Admin Sodium Chloride 1,000 mls @ 999 mls/hr 09/12/18 05:05 09/12/18 05:31 Normal Saline IV 09/12/18 06:05 999 mls/hr STAT ONE Administration Sodium Chloride 10 ml 09/12/18 04:22 Saline Flush FLUSH ASDIRECTED PRN Keep Vein Open Sodium Chloride 2.5 ml 09/12/18 04:22 Saline Flush FLUSH ASDIRECTED PRN Keep Vein Open Discontinued Medications Generic Name Dose Route Start Last Admin Trade Name Freq PRN Reason Stop Dose Admin Sodium Chloride 1,000 mls @ 999 mls/hr 09/12/18 04:22 09/12/18 05:08 Normal Saline IV 09/12/18 05:22 999 mls/hr STAT ONE Administration Ceftriaxone Sodium/Dextrose 1 50 mls @ 100 mls/hr 09/12/18 05:13 09/12/18 05: 32 gm/ Premix IV 09/12/18 05:42 100 mls/hr ONETIME ONE Administration Ondansetron HCl 4 mg 09/12/18 04:22 09/12/18 05:09 Zofran IVPUSH 09/12/18 04:23 4 mg ONETIME ONE Administration Departure - Departure Time of Disposition: 05:42 Disposition: Home, Self-Care 01 Condition: Good Clinical Impression: Dental infection Insulin reaction Qualifiers: Encounter type: initial encounter Qualified Code(s): T38.3X5A - Adverse effect of insulin and oral hypoglycemic [antidiabetic] drugs, initial encounter - Discharge Information Forms: ED Department Discharge Additional Instructions: The following information is given to patients seen in the emergency department who are being discharged to home. This information is to outline your options for follow-up care. We provide all patients seen in our emergency department with a follow-up referral. The need for follow-up, as well as the timing and circumstances, are variable depending upon the specifics of your emergency department visit. If you don't have a primary care physician on staff, we will provide you with a referral. We always advise you to contact your personal physician following an emergency department visit to inform them of the circumstance of the visit and for follow-up with them and/or the need for any referrals to a consulting specialist. The emergency department will also refer you to a specialist when appropriate. This referral assures that you have the opportunity for followup care with a specialist. All of these measure are taken in an effort to provide you with optimal care, which includes your followup. Under all circumstances we always encourage you to contact your private physician who remains a resource for coordinating your care. When calling for followup care, please make the office aware that this follow-up is from your recent emergency room visit. If for any reason you are refused follow-up, please contact the [facility] emergency department at and ask to speak to the emergency department charge nurse. [facility] Primary care- Internal Medicine and Family [id number] [id number] Please contact and follow-up with Dr. Hubbard in the clinic or one of our providers next week for reevaluation and further care of your insulin. Keep the appointment that you have scheduled with the dentist for definitive care and treatment of the tooth problem and take the antibiotics were prescribed yesterday morning to fight the infection. Use the dental balls you're given yesterday as well as for pain management as well as the Magdalena keeping in mind that the Magdalena can trigger nausea and vomiting as well as stomach upset. Please check your blood sugar every 1-2 hours for the next 6-8 hours and then you can spread out the checks more as you are eating and drinking normally. Return to ER as needed and as discussed. - My Orders Last 24 Hours: My Active Orders 09/12/18 04:21 Oxygen Therapy, ED [RC] ASDIRECTED Pulse Oximetry [RC] ASDIRECTED Saline Lock Insert [OM.PC] Stat 09/12/18 04:22 Blood Glucose Check, Bedside [] ONETIME Sodium Chloride 0.9% [Saline Flush] 10 ml FLUSH ASDIRECTED PRN Sodium Chloride 0.9% [Saline Flush] 2.5 ml FLUSH ASDIRECTED PRN 09/12/18 04:47 Blood Glucose Check, Bedside [RC] ONETIME 09/12/18 05:05 Sodium Chloride 0.9% [Normal Saline] 1,000 ml IV STAT 09/12/18 05:42 Ketorolac [Toradol] 30 mg IVPUSH ONETIME ONE - Assessment/Plan Last 24 Hours: My Active Orders 09/12/18 04:21 Oxygen Therapy, ED [RC] ASDIRECTED Pulse Oximetry [RC] ASDIRECTED Saline Lock Insert [OM.PC] Stat 09/12/18 04:22 Blood Glucose Check, Bedside [RC] ONETIME Sodium Chloride 0.9% [Saline Flush] 10 ml FLUSH ASDIRECTED PRN Sodium Chloride 0.9% [Saline Flush] 2.5 ml FLUSH ASDIRECTED PRN 09/12/18 04:47 Blood Glucose Check, Bedside [RC] ONETIME 09/12/18 05:05 Sodium Chloride 0.9% [Normal Saline] 1,000 ml IV STAT 09/12/18 05:42 Ketorolac [Toradol] 30 mg IVPUSH ONETIME ONE
[2018-09-12 04:52] LABS: CHLORIDE,CL 107 mmol/L (98-107); SODIUM,NA 142 mmol/L (136-145)
[2018-09-12] MEDS ORDERED: cefTRIAXone 1 GM in Premix Bag 1 BAG IV ONE (05:13)
[2018-09-12] MEDS ORDERED: Ketorolac 30 MG/ML SDV IVPUSH ONE (05:42)
[2018-09-12] MEDS ORDERED: 50% Dextrose in Water 50 ML Syringe IVPUSH ONE (05:46)
[2018-09-12] MEDS ORDERED: 50% Dextrose in Water 50 ML Syringe ONE (05:46)
[2018-09-12] MEDS ORDERED: Ondansetron 4 MG/2 ML SDV IVPUSH PRN (07:08)
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
[2018-09-12] MEDS ORDERED: Insulin Aspart 100 Units/ML 3 ML Pen SUBCUT SCH ×2 (07:30→11:30)
[2018-09-12] MEDS ORDERED: Ibuprofen 400 MG Tab PO PRN (10:43)
[2018-09-12 13:21] VITALS: BP 119/56
--- NOTE | 2018-09-12 15:36 | PCM.DCSUM1 ---
Discharge Summary - Hospital Course HPI Initial Comments: Admitted secondary to hypoglycemic episodes Diagnosis: Stroke: No - Discharge Data Discharge Date: 09/12/18 Discharge Disposition: Home, Self-Care 01 Condition: Good - Discharge Diagnosis/Problem(s) (1) Dehydration SNOMED Code(s): 82962300 ICD Code: E86.0 - DEHYDRATION Status: Resolved Priority: High Current Visit: Yes (2) Hypoglycemia due to type 1 diabetes mellitus SNOMED Code(s): 71910077440588, 38330709847892 ICD Code: E10.649 - TYPE 1 DIABETES MELLITUS WITH HYPOGLYCEMIA WITHOUT COMA Status: Chronic Priority: High Current Visit: Yes (3) Dental infection SNOMED Code(s): 375539512 ICD Code: K04.7 - PERIAPICAL ABSCESS WITHOUT SINUS Status: Acute Priority : High Current Visit: Yes (4) Nausea & vomiting SNOMED Code(s): 57351107 ICD Code: R11.2 - NAUSEA WITH VOMITING, UNSPECIFIED Status: Acute Priority: High Current Visit: Yes Qualifiers: Vomiting type: cyclical vomiting Vomiting Intractability: non-intractable Qualified Code(s): G43.A0 - Cyclical vomiting, not intractable (5) DM type 1 (diabetes mellitus, type 1) SNOMED Code(s): 11745998 ICD Code: E10.9 - TYPE 1 DIABETES MELLITUS WITHOUT COMPLICATIONS Status: Chronic Priority: High Current Visit: Yes Qualifiers: Diabetes mellitus complication status: with hypoglycemia Diabetes mellitus complication detail: without coma Qualified Code(s): E10.649 - Type 1 diabetes mellitus with hypoglycemia without coma - Patient Summary/Data Hospital Course: The patient is a 43-year-old lady who was admitted to observation hospitalization secondary to severe hypoglycemia. She has a type I diabetic and has been so since the age of 9. The patient has been using an insulin pump which is functional. In the emergency department she had several episodes where her blood sugars had dropped into the 30s. The patient was admitted, insulin pump discontinued and her blood sugars were monitored. The patient also had a history of dental infection and had not been eating very well. She also had been taking Motrin for the pain. During the patient's short hospitalization she had continued to improve and did not have any further episodes of hypoglycemia requiring intervention. Her blood sugars have remained over 200. The patient is well versed at handling her insulin pump and she has been recommended to continue with the insulin pump and be diligent about avoiding hypoglycemic episodes secondary to fasting. She has also been recommended to follow-up with her dentist with regards to the tooth infection. She has been recommended to continue with her diabetic diet as tolerated. She is also to have activity as tolerated. The patient has been hemodynamically stable and she is discharged from hospitalization with the recommendations listed above. - Patient Instructions Diet: Heart Healthy Diet Activity: As Tolerated - Discharge Plan *PRESCRIPTION DRUG MONITORING PROGRAM REVIEWED*: No *COPY OF PRESCRIPTION DRUG MONITORING REPORT IN PATIENT KATIE: No Home Medications: Home Meds Citalopram [Citalopram HBr] 1 tab PO DAILY 09/11/18 [History] Insulin Regular, Human [NovoLIN R] 72 units SQ DAILY 09/11/18 [History] Lisinopril 1 tab PO DAILY 09/11/18 [History] Omeprazole Magnesium [Prilosec Otc] 20 mg PO DAILY 09/12/18 [History] Oxygen Therapy Mode: Room Air Patient Handouts: Hypoglycemia, [id number] Referrals: Bran Hubbard MD [Physician] - (Please call tomorrow, September 13 and schedule a follow up appointment.) - Discharge Summary/Plan Comment DC Time >30 min.: Yes - General Info Date of Service: 09/12/18 Admission Dx/Problem (Free Text: Admission Diagnosis/Problem Admission Diagnosis/Problem Hypoglycemia due to type 1 diabetes mellitus Subjective Update: The patient is doing much better. She feels like she can go home. Functional Status: Reports: Pain Controlled - Review of Systems General: Reports: No Symptoms HEENT: Reports: No Symptoms Pulmonary: Reports: No Symptoms Cardiovascular: Reports: No Symptoms Gastrointestinal: Reports: No Symptoms 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: Reports: No Symptoms 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: Reports: No Symptoms Skin: Reports: No Symptoms Neurological: Reports: No Symptoms Psychiatric: Reports: No Symptoms - Patient Data Vitals - Most Recent: Last Vital Signs Temp 37.1 C 09/12/18 12:00 Pulse 81 09/12/18 12:00 Resp 16 09/12/18 12:00 BP 119/56 L 09/12/18 13:20 Pulse Ox 98 09/12/18 12:00 Weight - Most Recent: 85.6 kg Lab Results - Last 24 hrs: Laboratory Results - last 24 hr 09/12/18 09/12/18 09/12/18 Range/Units 04:15 04:15 04:15 WBC 15.27 H (4.0-11.0) K/uL RBC 4.74 (4.30-5.90) M/uL Hgb 14.3 (12.0-16.0) g/dL Hct 42.7 (36.0-46.0) % MCV 90.1 (80.0-98.0) fL MCH 30.2 (27.0-32.0) pg MCHC 33.5 (31.0-37.0) g/dL RDW Std Deviation 47.0 (28.0-62.0) fl RDW Coeff of Jb 14 (11.0-15.0) % Plt Count 322 (150-400) K/uL MPV 10.50 (7.40-12.00) fL Neut % (Auto) 65.5 (48.0-80.0) % Lymph % (Auto) 23.5 (16.0-40.0) % [place] % (Auto) 7.2 (0.0-15.0) % Eos % (Auto) 3.5 (0.0-7.0) % Baso % (Auto) 0.3 (0.0-1.5) % Neut # (Auto) 10.0 H (1.4-5.7) K/uL Lymph # (Auto) 3.6 H (0.6-2.4) K/uL [place] # (Auto) 1.1 H (0.0-0.8) K/uL Eos # (Auto) 0.5 (0.0-0.7) K/uL Baso # (Auto) 0.1 (0.0-0.1) K/uL Nucleated RBC % 0.0 /100WBC Nucleated RBCs # 0 K/uL Sodium 142 (136-145) mmol/L Potassium 3.7 (3.5-5.1) mmol/L Chloride 107 (98-107) mmol/L Carbon Dioxide 22.7 (21.0-32.0) mmol/L BUN 26 H (7.0-18.0) mg/dL Creatinine 1.0 (0.6-1.0) mg/dL Est Cr Clr Drug Dosing 64.60 mL/min Estimated GFR (MDRD) > 60.0 ml/min Glucose 73 L (74-106) mg/dL POC Glucose (60-110) mg/dL Calcium 8.9 (8.5-10.1) mg/dL Total Bilirubin 0.3 (0.2-1.0) mg/dL AST 23 (15-37) IU/L ALT 25 (14-63) IU/L Alkaline Phosphatase 86 (46-116) U/L Total Protein 8.3 H (6.4-8.2) g/dL Albumin 4.1 (3.4-5.0) g/dL Globulin 4.2 H (2.6-4.0) g/dL Albumin/Globulin Ratio 1.0 (0.9-1.6) Amylase 45 (25-115) U/L Lipase 143 (73-393) U/L Urine Color Urine Appearance Urine pH (5.0-8.0) Ur Specific [place] (1.001-1.035) Urine Protein (NEGATIVE) mg/dL Urine Glucose (UA) (NEGATIVE) mg/dL Urine Ketones (NEGATIVE) mg/dL Urine Occult Blood (NEGATIVE) Urine Nitrite (NEGATIVE) Urine Bilirubin (NEGATIVE) Urine Urobilinogen (<2.0) EU/dL Ur Leukocyte Esterase (NEGATIVE) Ethyl Alcohol <3 mg/dL Ketones NEGATIVE (NEG) 09/12/18 09/12/18 09/12/18 Range/Units 05:11 07:58 10:06 WBC (4.0-11.0) K/uL RBC (4.30-5.90) M/uL Hgb (12.0-16.0) g/dL Hct (36.0-46.0) % MCV (80.0-98.0) fL MCH (27.0-32.0) pg MCHC (31.0-37.0) g/dL RDW Std Deviation (28.0-62.0) fl RDW Coeff of Jb (11.0-15.0) % Plt Count (150-400) K/uL MPV (7.40-12.00) fL Neut % (Auto) (48.0-80.0) % Lymph % (Auto) (16.0-40.0) % [place] % (Auto) (0.0-15.0) % Eos % (Auto) (0.0-7.0) % Baso % (Auto) (0.0-1.5) % Neut # (Auto) (1.4-5.7) K/uL Lymph # (Auto) (0.6-2.4) K/uL [place] # (Auto) (0.0-0.8) K/uL Eos # (Auto) (0.0-0.7) K/uL Baso # (Auto) (0.0-0.1) K/uL Nucleated RBC % /100WBC Nucleated RBCs # K/uL Sodium (136-145) mmol/L Potassium (3.5-5.1) mmol/L Chloride (98-107) mmol/L Carbon Dioxide (21.0-32.0) mmol/L BUN (7.0-18.0) mg/dL Creatinine (0.6-1.0) mg/dL Est Cr Clr Drug Dosing mL/min Estimated GFR (MDRD) ml/min Glucose (74-106) mg/dL POC Glucose 90 49 L (60-110) mg/dL Calcium (8.5-10.1) mg/dL Total Bilirubin (0.2-1.0) mg/dL AST (15-37) IU/L ALT (14-63) IU/L Alkaline Phosphatase (46-116) U/L Total Protein (6.4-8.2) g/dL Albumin (3.4-5.0) g/dL Globulin (2.6-4.0) g/dL Albumin/Globulin Ratio (0.9-1.6) Amylase (25-115) U/L Lipase (73-393) U/L Urine Color DARK YELLOW Urine Appearance SLT CLOUDY Urine pH 5.5 (5.0-8.0) Ur Specific [place] >= 1.030 (1.001-1.035) Urine Protein NEGATIVE (NEGATIVE) mg/dL Urine Glucose (UA) NEGATIVE (NEGATIVE) mg/dL Urine Ketones NEGATIVE (NEGATIVE) mg/dL Urine Occult Blood NEGATIVE (NEGATIVE) Urine Nitrite NEGATIVE (NEGATIVE) Urine Bilirubin NEGATIVE (NEGATIVE) Urine Urobilinogen 0.2 (<2.0) EU/dL Ur Leukocyte Esterase NEGATIVE (NEGATIVE) Ethyl Alcohol mg/dL Ketones (NEG) 09/12/18 09/12/18 09/12/18 Range/Units 10:38 11:24 12:53 WBC (4.0-11.0) K/uL RBC (4.30-5.90) M/uL Hgb (12.0-16.0) g/dL Hct (36.0-46.0) % MCV (80.0-98.0) fL MCH (27.0-32.0) pg MCHC (31.0-37.0) g/dL RDW Std Deviation (28.0-62.0) fl RDW Coeff of Jb (11.0-15.0) % Plt Count (150-400) K/uL MPV (7.40-12.00) fL Neut % (Auto) (48.0-80.0) % Lymph % (Auto) (16.0-40.0) % [place] % (Auto) (0.0-15.0) % Eos % (Auto) (0.0-7.0) % Baso % (Auto) (0.0-1.5) % Neut # (Auto) (1.4-5.7) K/uL Lymph # (Auto) (0.6-2.4) K/uL [place] # (Auto) (0.0-0.8) K/uL Eos # (Auto) (0.0-0.7) K/uL Baso # (Auto) (0.0-0.1) K/uL Nucleated RBC % /100WBC Nucleated RBCs # K/uL Sodium (136-145) mmol/L Potassium (3.5-5.1) mmol/L Chloride (98-107) mmol/L Carbon Dioxide (21.0-32.0) mmol/L BUN (7.0-18.0) mg/dL Creatinine (0.6-1.0) mg/dL Est Cr Clr Drug Dosing mL/min Estimated GFR (MDRD) ml/min Glucose (74-106) mg/dL POC Glucose 145 H 271 H 295 H (60-110) mg/dL Calcium (8.5-10.1) mg/dL Total Bilirubin (0.2-1.0) mg/dL AST (15-37) IU/L ALT (14-63) IU/L Alkaline Phosphatase (46-116) U/L Total Protein (6.4-8.2) g/dL Albumin (3.4-5.0) g/dL Globulin (2.6-4.0) g/dL Albumin/Globulin Ratio (0.9-1.6) Amylase (25-115) U/L Lipase (73-393) U/L Urine Color Urine Appearance Urine pH (5.0-8.0) Ur Specific [place] (1.001-1.035) Urine Protein (NEGATIVE) mg/dL Urine Glucose (UA) (NEGATIVE) mg/dL Urine Ketones (NEGATIVE) mg/dL Urine Occult Blood (NEGATIVE) Urine Nitrite (NEGATIVE) Urine Bilirubin (NEGATIVE) Urine Urobilinogen (<2.0) EU/dL Ur Leukocyte Esterase (NEGATIVE) Ethyl Alcohol mg/dL Ketones (NEG) 09/12/18 Range/Units 14:51 WBC (4.0-11.0) K/uL RBC (4.30-5.90) M/uL Hgb (12.0-16.0) g/dL Hct (36.0-46.0) % MCV (80.0-98.0) fL MCH (27.0-32.0) pg MCHC (31.0-37.0) g/dL RDW Std Deviation (28.0-62.0) fl RDW Coeff of Jb (11.0-15.0) % Plt Count (150-400) K/uL MPV (7.40-12.00) fL Neut % (Auto) (48.0-80.0) % Lymph % (Auto) (16.0-40.0) % [place] % (Auto) (0.0-15.0) % Eos % (Auto) (0.0-7.0) % Baso % (Auto) (0.0-1.5) % Neut # (Auto) (1.4-5.7) K/uL Lymph # (Auto) (0.6-2.4) K/uL [place] # (Auto) (0.0-0.8) K/uL Eos # (Auto) (0.0-0.7) K/uL Baso # (Auto) (0.0-0.1) K/uL Nucleated RBC % /100WBC Nucleated RBCs # K/uL Sodium (136-145) mmol/L Potassium (3.5-5.1) mmol/L Chloride (98-107) mmol/L Carbon Dioxide (21.0-32.0) mmol/L BUN (7.0-18.0) mg/dL Creatinine (0.6-1.0) mg/dL Est Cr Clr Drug Dosing mL/min Estimated GFR (MDRD) ml/min Glucose (74-106) mg/dL POC Glucose 298 H (60-110) mg/dL Calcium (8.5-10.1) mg/dL Total Bilirubin (0.2-1.0) mg/dL AST (15-37) IU/L ALT (14-63) IU/L Alkaline Phosphatase (46-116) U/L Total Protein (6.4-8.2) g/dL Albumin (3.4-5.0) g/dL Globulin (2.6-4.0) g/dL Albumin/Globulin Ratio (0.9-1.6) Amylase (25-115) U/L Lipase (73-393) U/L Urine Color Urine Appearance Urine pH (5.0-8.0) Ur Specific [place] (1.001-1.035) Urine Protein (NEGATIVE) mg/dL Urine Glucose (UA) (NEGATIVE) mg/dL Urine Ketones (NEGATIVE) mg/dL Urine Occult Blood (NEGATIVE) Urine Nitrite (NEGATIVE) Urine Bilirubin (NEGATIVE) Urine Urobilinogen (<2.0) EU/dL Ur Leukocyte Esterase (NEGATIVE) Ethyl Alcohol mg/dL Ketones (NEG) Med Orders - Current: Current Medications Ibuprofen (Motrin) 400 mg PO Q4H PRN PRN Reason: Pain Last Admin: 09/12/18 11:33 Dose: 400 mg Insulin Aspart (Novolog) 0 unit SUBCUT QIDACANDBED [facility]; Protocol Last Admin: 09/12/18 13:22 Dose: 3 units Ondansetron HCl (Zofran) 4 mg IVPUSH Q4H PRN PRN Reason: Nausea/Vomiting Sodium Chloride (Saline Flush) 10 ml FLUSH ASDIRECTED PRN PRN Reason: Keep Vein Open Sodium Chloride (Saline Flush) 2.5 ml FLUSH ASDIRECTED PRN PRN Reason: Keep Vein Open Discontinued Medications Dextrose/Water (Dextrose 50% In Water) 50 ml IVPUSH ONETIME ONE Stop: 09/12/18 05:47 Last Admin: 09/12/18 05:48 Dose: 50 ml Dextrose/Water (Dextrose 50% In Water) Confirm Administered Dose 50 ml .ROUTE .STK-MED ONE Stop: 09/12/18 05:47 Last Admin: 09/12/18 05:56 Dose: Not Given Sodium Chloride (Normal Saline) 1,000 mls @ 999 mls/hr IV STAT ONE Stop: 09/12/18 05:22 Last Admin: 09/12/18 05:08 Dose: 999 mls/hr Sodium Chloride (Normal Saline) 1,000 mls @ 999 mls/hr IV STAT ONE Stop: 09/12/18 06:05 Last Infusion: 09/12/18 06:55 Dose: Infused Ceftriaxone Sodium/Dextrose 1 (gm/ Premix) 50 mls @ 100 mls/hr IV ONETIME ONE Stop: 09/12/18 05:42 Last Admin: 09/12/18 05:32 Dose: 100 mls/hr Insulin Aspart (Novolog) 0 unit SUBCUT ACBREAKFASTANDBED [facility]; Protocol Last Admin: 09/12/18 08:57 Dose: Not Given Ketorolac Tromethamine (Toradol) 30 mg IVPUSH ONETIME ONE Stop: 09/12/18 05:43 Last Admin: 09/12/18 05:51 Dose: 30 mg Ondansetron HCl (Zofran) 4 mg IVPUSH ONETIME ONE Stop: 09/12/18 04:23 Last Admin: 09/12/18 05:09 Dose: 4 mg - Exam Quality Assessment: Denies: Supplemental Oxygen General: Reports: Alert, Oriented, Cooperative, No Acute Distress HEENT: Reports: Pupils Equal, Pupils Reactive, EOMI, Mucous Membr. Moist/[place] Neck: Reports: Supple, Trachea Midline Lungs: Reports: Clear to Auscultation, Normal Respiratory Effort Cardiovascular: Reports: Regular Rate, Regular Rhythm GI/Abdominal Exam: Normal Bowel Sounds, Soft, Non-Tender, No Distention (Female) Exam: Deferred Rectal (Female) Exam: Deferred Back Exam: Reports: Normal Inspection, Full Range of Motion Extremities: Normal Inspection, No Pedal Edema Skin: Reports: Warm, Dry, Intact Neurological: Reports: No New Focal Deficit Psy/Mental Status: Reports: Alert, Normal Affect, Normal Mood
== END 2018-09-12 15:35 | disposition home or self-care (01) ==
LOC: MW.ED 04:17 → MW.MS 06:53
PROVIDERS: ADMIT Internal Medicine; ATTEND Internal Medicine
DX: E10.649 Type 1 diabetes mellitus with hypoglycemia without coma (principal); E86.0 Dehydration; K04.7 Periapical abscess without sinus; I10 Essential (primary) hypertension; F17.200 Nicotine dependence, unspecified, uncomplicated; Z79.899 Other long term (current) drug therapy
CPT/HCPCS: 36415; 80053; 81003; 82009; 82150; 82962; 83690; 85025; 96361; 96365; 96375; 99285; A9270; G0378; G0480; J0696; J1815; J1885; J2405; J7040; J7060; 99284

== ENCOUNTER 2020-01-07 15:59 | Emergency (ER) | payer OTHER ==
[2020-01-07] MEDS ORDERED: Lidocaine 1% PF 2 ML SDV INJECT ONE (16:43)
[2020-01-07] MEDS ORDERED: Diphtheria,Pertussis(Acell),Tetanus Vaccine 0.5 ML Syringe IM ONE (16:43)
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
[2020-01-07 17:11] VITALS: BP 147/69; PULSE 81
== END 2020-01-07 17:10 | disposition home or self-care (01) ==
LOC: MW.ED 15:59
DX: S61.211A Laceration without foreign body of left index finger without damage to nail, initial encounter (principal); I10 Essential (primary) hypertension; F41.9 Anxiety disorder, unspecified; F32.9 Major depressive disorder, single episode, unspecified; E10.9 Type 1 diabetes mellitus without complications; Z23 Encounter for immunization; Z79.899 Other long term (current) drug therapy; W26.8XXA Contact with other sharp object(s), not elsewhere classified, initial encounter
CPT/HCPCS: 12001; 90471; 90715; 99282; J2001

== ENCOUNTER 2020-05-17 13:25 | Emergency (ER) | payer OTHER ==
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
[2020-05-17] MEDS ORDERED: Sodium Chloride 0.9% 1,000 ML IV ONE (13:43)
[2020-05-17 13:46] VITALS: BP 166/81; PULSE 89
[2020-05-17 14:28] LABS: CARBON DIOXIDE,CO2 18.7 mmol/L (21.0-32.0); POTASSIUM,K 4.4 mmol/L (3.5-5.1)
== END 2020-05-17 16:23 | disposition home or self-care (01) ==
LOC: MW.ED 13:25
DX: T85.614A Breakdown (mechanical) of insulin pump, initial encounter (principal); E10.65 Type 1 diabetes mellitus with hyperglycemia; I10 Essential (primary) hypertension; F41.9 Anxiety disorder, unspecified; F32.9 Major depressive disorder, single episode, unspecified; Z79.899 Other long term (current) drug therapy
CPT/HCPCS: 36415; 80053; 81001; 82803; 82962; 83605; 85025; 99284; J7030; 99283

== ENCOUNTER 2021-02-25 12:49 | Emergency (ER) | payer BC, OTHER ==
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
[2021-02-25 19:45] VITALS: BP 209/100; PULSE 78
== END 2021-02-25 15:15 | disposition home or self-care (01) ==
LOC: MW.ED 12:49
DX: K04.7 Periapical abscess without sinus (principal); K21.9 Gastro-esophageal reflux disease without esophagitis; E10.9 Type 1 diabetes mellitus without complications; Z79.4 Long term (current) use of insulin; Z79.899 Other long term (current) drug therapy; Z72.0 Tobacco use
CPT/HCPCS: 99282

== ENCOUNTER 2021-03-04 13:02 | Emergency (ER) | payer BC ==
--- NOTE | 2021-03-04 13:47 | CR ---
INDICATION: Concern for COVID. TECHNIQUE: Chest 1 view. COMPARISON: Chest radiograph 07/20/2017. FINDINGS: No focal consolidation, pleural effusion, or pneumothorax. Normal heart size and pulmonary vascularity. Minimal elevation of the right hemidiaphragm. The bones are unremarkable. IMPRESSION: No acute cardiopulmonary findings. Dictated by Rosa Soni MD @ 03/04/2021 1:45:32 PM (Electronically Signed)
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
[2021-03-04 15:22] VITALS: BP 175/82; PULSE 75
== END 2021-03-04 15:20 | disposition home or self-care (01) ==
LOC: MW.ED 13:02
DX: J98.9 Respiratory disorder, unspecified (principal); I10 Essential (primary) hypertension; K21.9 Gastro-esophageal reflux disease without esophagitis; E10.9 Type 1 diabetes mellitus without complications; Z72.0 Tobacco use; Z79.899 Other long term (current) drug therapy; Z20.822 Contact with and (suspected) exposure to COVID-19
CPT/HCPCS: 71045; 71045-26; 99283-25; U0002

== ENCOUNTER 2021-11-17 23:20 | Emergency (ER) | payer BC ==
[2021-11-17] MEDS ORDERED: LORazepam 2 MG/ML SDV IVPUSH ONE (23:36)
[2021-11-17] MEDS ORDERED: Sodium Chloride 0.9% 10 ML Syringe FLUSH PRN (23:36)
[2021-11-17] MEDS ORDERED: Sodium Chloride 0.9% 2.5 ML Syringe FLUSH PRN (23:36)
[2021-11-18 00:24] LABS: BLOOD UREA NITROGEN,BUN 22 mg/dL (7.0-18.0); CARBON DIOXIDE,CO2 26.2 mmol/L (21.0-32.0); CHLORIDE,CL 101 mmol/L (98-107); GLUCOSE RANDOM 238 mg/dL (74-106); POTASSIUM,K 4.2 mmol/L (3.5-5.1); SODIUM,NA 140 mmol/L (136-145)
[2021-11-18 00:29] LABS: ESTIMATED GFR 62 mL/min (>60)
[2021-11-18 02:22] VITALS: BP 131/87; PULSE 76
== END 2021-11-18 02:22 | disposition home or self-care (01) ==
LOC: MW.ED 23:20
DX: R20.2 Paresthesia of skin (principal); E10.9 Type 1 diabetes mellitus without complications; I10 Essential (primary) hypertension; K21.9 Gastro-esophageal reflux disease without esophagitis; F17.210 Nicotine dependence, cigarettes, uncomplicated; Z79.899 Other long term (current) drug therapy
CPT/HCPCS: 36415; 80053; 80307; 82803; 82947; 83735; 85025; 96374; 99284; J2060; J3490

== ENCOUNTER 2022-03-16 01:18 | Emergency (ER) | payer BC ==
[2022-03-16 01:53] VITALS: BP 159/88; PULSE 93
== END 2022-03-16 02:24 | disposition home or self-care (01) ==
LOC: MW.ED 01:18
DX: T85.694A Other mechanical complication of insulin pump, initial encounter (principal); I10 Essential (primary) hypertension; E10.9 Type 1 diabetes mellitus without complications; Z79.899 Other long term (current) drug therapy; Z79.4 Long term (current) use of insulin; Z90.49 Acquired absence of other specified parts of digestive tract
CPT/HCPCS: 82947; 99282; 99283

== ENCOUNTER 2022-03-31 03:03 | Emergency (ER) | payer BC ==
[2022-03-31] MEDS ORDERED: Ketorolac 30 MG/ML SDV IVPUSH ONE (03:19)
[2022-03-31] MEDS ORDERED: Albuterol 8 GM Inhaler INH STA (03:32)
[2022-03-31] MEDS ORDERED: Sodium Chloride 0.9% 1,000 ML IV SCH (03:45)
[2022-03-31 03:47] LABS: POTASSIUM,K 3.6 mmol/L (3.5-5.1)
[2022-03-31 04:27] LABS: INFLUENZA A NAA NEGATIVE (NEGATIVE); INFLUENZA B NAA NEGATIVE (NEGATIVE)
[2022-03-31] MEDS ORDERED: Iopamidol 755 MG/ML 500 ML Multipack Bottle IVPUSH ONE (04:55)
[2022-03-31 05:38] VITALS: BP 150/70; PULSE 78
== END 2022-03-31 05:36 | disposition home or self-care (01) ==
LOC: MW.ED 03:03
DX: J06.9 Acute upper respiratory infection, unspecified (principal); R09.1 Pleurisy; I10 Essential (primary) hypertension; K21.9 Gastro-esophageal reflux disease without esophagitis; E10.9 Type 1 diabetes mellitus without complications; Z79.899 Other long term (current) drug therapy; Z20.822 Contact with and (suspected) exposure to COVID-19
CPT/HCPCS: 36415; 71045; 71275; 80053; 84484; 84703; 85025; 85379; 87635; 93005; 96361; 96374; 99285; A9270; J1885; J7030; Q9967; U0002

== ENCOUNTER 2023-03-08 13:13 | Emergency (ER) | payer BC ==
[2023-03-08] MEDS ORDERED: Erythromycin Base 0.5% Ophth Oint 1 GM Tube EYERT ONE (13:24)
[2023-03-08] MEDS ORDERED: Tetracaine HCl/PF 0.5% 4 ML Bottle EYEBOTH ONE (13:24)
[2023-03-08 13:56] VITALS: BP 162/75; PULSE 87
== END 2023-03-08 13:54 | disposition home or self-care (01) ==
LOC: MW.ED 13:13
DX: S05.01XA Injury of conjunctiva and corneal abrasion without foreign body, right eye, initial encounter (principal); E10.9 Type 1 diabetes mellitus without complications; Z79.4 Long term (current) use of insulin; Z79.899 Other long term (current) drug therapy; W22.8XXA Striking against or struck by other objects, initial encounter
CPT/HCPCS: 99283; A9270; J3490

== ENCOUNTER 2024-02-29 09:50 | Emergency (ER) | payer BC ==
[2024-02-29 10:39] VITALS: BP 139/76; PULSE 83
== END 2024-02-29 10:32 | disposition home or self-care (01) ==
LOC: MW.ED 09:50
DX: T24.231A Burn of second degree of right lower leg, initial encounter (principal); T31.0 Burns involving less than 10% of body surface; I10 Essential (primary) hypertension; E10.9 Type 1 diabetes mellitus without complications; Z79.899 Other long term (current) drug therapy; Z79.4 Long term (current) use of insulin; X58.XXXA Exposure to other specified factors, initial encounter
CPT/HCPCS: 16020; 99283-25

== ENCOUNTER 2024-08-24 16:34 | Emergency (ER) | payer BC ==
[2024-08-24] MEDS ORDERED: Glucagon,Human Recombinant 1 MG Vial IM PRN (17:31)
[2024-08-24] MEDS ORDERED: 50% Dextrose in Water 50 ML Syringe IVPUSH PRN (17:31)
[2024-08-24] MEDS: Ondansetron 4 MG/2 ML SDV IVPUSH ONE (17:49)
[2024-08-24] MEDS: Insulin Regular, Human 100 Units/ML 10 ML Vial SUBCUT ONE (17:49)
[2024-08-24] MEDS: Sodium Chloride 0.9% 1,000 ML IV ONE ×2 (17:49→20:59)
[2024-08-24 17:57] VITALS: BP 149/64; PULSE 96
[2024-08-24 18:21] LABS: BILIRUBIN,URINE NEGATIVE (NEGATIVE); COLOR,URINE YELLOW; GLUCOSE,URINE 100 mg/dL (NEGATIVE); KETONES,URINE TRACE mg/dL (NEGATIVE); LEUKOCYTE ESTERASE,URINE NEGATIVE (NEGATIVE); NITRITE,URINE POSITIVE (NEGATIVE); OCCULT BLOOD,URINE NEGATIVE (NEGATIVE); PROTEIN,URINE NEGATIVE (NEGATIVE); UROBILINOGEN,URINE 0.2 EU/dL (<2.0)
[2024-08-24 18:24] LABS: BASOPHILS ABSOLUTE AUTO 0.06 K/uL (0.00-0.20); BASOPHILS PERCENT AUTO 0.3 % (0.0-1.0); EOSINOPHILS ABSOLUTE AUTO 0.06 K/uL (0.00-0.45); EOSINOPHILS PERCENT AUTO 0.3 % (0.0-6.0); HEMATOCRIT 40.2 % (37.0-47.0); HEMOGLOBIN 13.4 g/dL (12.0-16.0); IMMATURE GRAN ABSOLUTE AUTO 0.08 K/uL (0.00-0.05); IMMATURE GRAN PERCENT AUTO 0.4 % (0.0-0.4); LYMPHOCYTES ABSOLUTE AUTO 0.52 K/uL (1.00-4.80); LYMPHOCYTES PERCENT AUTO 2.7 % (24.0-44.0); MEAN CORPUSCULAR HEMOGLOBIN 29.3 pg (28.0-32.0); MEAN CORPUSCULAR HGB CONC 33.3 g/dL (32.0-36.0); MEAN CORPUSCULAR VOLUME 87.8 fL (83.0-99.0); MEAN PLATELET VOLUME 10.4 fL (9.4-12.3); MONOCYTES PERCENT AUTO 2.6 % (0.0-8.0); NEUTROPHILS ABSOLUTE AUTO 17.79 K/uL (1.80-7.70); NEUTROPHILS PERCENT AUTO 93.7 % (41.0-71.0); PLATELET COUNT,PLT 270 K/uL (150-400); RED BLOOD CELL COUNT 4.58 M/uL (4.10-5.30); WHITE BLOOD CELL COUNT,WBC 19.01 K/uL (3.9-11.3)
[2024-08-24 18:48] LABS: ALBUMIN 3.9 g/dL (3.4-5.0); BILIRUBIN TOTAL 0.6 mg/dL (0.2-1.0); CALCIUM 8.9 mg/dL (8.5-10.1); CARBON DIOXIDE,CO2 27.6 mmol/L (21.0-32.0); CREATININE 1.1 mg/dL (0.6-1.0); EST CRCL DRUG DOSING (CG) 50.61 mL/min; POTASSIUM,K 4.4 mmol/L (3.5-5.1); PROTEIN TOTAL,TP 7.7 g/dL (6.4-8.2)
[2024-08-24 18:55] LABS: APPEARANCE,URINE SLT CLOUDY
[2024-08-24 19:04] LABS: BACTERIA,URINE 4+ (NEGATIVE); CALCIUM OXALATE CRYSTALS,URINE FEW (NEGATIVE); EPITHELIAL CELLS,URINE OCCASIONAL (NONE-FEW); RBC,URINE 0-1 (0-2/HPF); WBC,URINE 0-2 (0-5/HPF)
[2024-08-25] MEDS: Iopamidol 755 MG/ML 500 ML Multipack Bottle IVPUSH ONE (03:37)
[2024-08-25] MEDS ORDERED: Ibuprofen 600 MG Tab PO ONE (03:39)
[2024-08-25] MEDS ORDERED: Sodium Chloride 0.9% 1,000 ML IV ONE (04:16)
== END 2024-08-25 07:32 | disposition home or self-care (01) ==
LOC: MW.ED 16:34
DX: E10.65 Type 1 diabetes mellitus with hyperglycemia (principal); I10 Essential (primary) hypertension; K21.9 Gastro-esophageal reflux disease without esophagitis; Z79.4 Long term (current) use of insulin; Z79.899 Other long term (current) drug therapy
CPT/HCPCS: 36415; 71045; 71275; 74177; 80053; 81001; 82947; 83605; 83690; 83735; 83880; 84484; 85025; 87040; 87086; 87088; 87186; 93005; 96361; 96374; 99285; J2405; J7030; Q9967; 93010; 99282; J1815-GY

== ENCOUNTER 2025-01-23 03:06 | Emergency (ER) | payer BC ==
[2025-01-23 03:37] LABS: BASOPHILS ABSOLUTE AUTO 0.11 K/uL (0.00-0.20); BASOPHILS PERCENT AUTO 1.1 % (0.0-1.0); EOSINOPHILS ABSOLUTE AUTO 0.35 K/uL (0.00-0.45); EOSINOPHILS PERCENT AUTO 3.6 % (0.0-6.0); IMMATURE GRAN ABSOLUTE AUTO 0.04 K/uL (0.00-0.05); IMMATURE GRAN PERCENT AUTO 0.4 % (0.0-0.4); LYMPHOCYTES ABSOLUTE AUTO 3.03 K/uL (1.00-4.80); LYMPHOCYTES PERCENT AUTO 31.4 % (24.0-44.0); MEAN PLATELET VOLUME 10.7 fL (9.4-12.3); MONOCYTES ABSOLUTE AUTO 0.68 K/uL (0.00-0.80); MONOCYTES PERCENT AUTO 7.1 % (0.0-8.0); NEUTROPHILS ABSOLUTE AUTO 5.43 K/uL (1.80-7.70); NEUTROPHILS PERCENT AUTO 56.4 % (41.0-71.0); NRBC ABSOLUTE 0.00 K/uL (0.00-0.02); NRBC PERCENT 0.0 /100WBC (0.0-0.2); PLATELET COUNT,PLT 314 K/uL (150-400); RED BLOOD CELL COUNT 4.94 M/uL (4.10-5.30); WHITE BLOOD CELL COUNT,WBC 9.64 K/uL (3.9-11.3)
[2025-01-23 04:14] LABS: BLOOD UREA NITROGEN,BUN 18 mg/dL (7.0-18.0); CARBON DIOXIDE,CO2 31.3 mmol/L (21.0-32.0); CHLORIDE,CL 101 mmol/L (98-107); CREATININE 1.1 mg/dL (0.6-1.0); GLUCOSE RANDOM 236 mg/dL (74-106); POTASSIUM,K 3.9 mmol/L (3.5-5.1); SODIUM,NA 141 mmol/L (136-145)
[2025-01-23 04:17] LABS: ESTIMATED GFR 61 mL/min (>60)
[2025-01-23 05:17] VITALS: BP 140/66; PULSE 78
== END 2025-01-23 05:00 | disposition home or self-care (01) ==
LOC: MW.ED 03:06
DX: J40 Bronchitis, not specified as acute or chronic (principal); I10 Essential (primary) hypertension; E10.9 Type 1 diabetes mellitus without complications; F17.200 Nicotine dependence, unspecified, uncomplicated; Z90.49 Acquired absence of other specified parts of digestive tract; Z79.4 Long term (current) use of insulin; Z79.899 Other long term (current) drug therapy
CPT/HCPCS: 36415; 71045; 71045-26; 80048; 82947; 85025; 87428-QW; 93005; 99283; 99285

== ENCOUNTER 2025-01-23 12:53 | Emergency (ER) | payer BC ==
[2025-01-23] MEDS ORDERED: Sodium Chloride 0.9% 2.5 ML Syringe FLUSH PRN (14:31)
[2025-01-23] MEDS ORDERED: Sodium Chloride 0.9% 10 ML Syringe FLUSH PRN (14:31)
[2025-01-23] MEDS ORDERED: Alum Hydrox/Mag Hydrox/Simeth 15 ML, Lidocaine 2% 5 ML PO ONE (14:32)
[2025-01-23] MEDS ORDERED: Diltiazem 25 MG/5 ML SDV IVPUSH ONE (14:32)
[2025-01-23 14:37] VITALS: BP 184/88; PULSE 79
[2025-01-23] MEDS: Alum Hydrox/Mag Hydrox/Simeth 15 ML, Lidocaine 2% 5 ML PO ONE (15:01)
[2025-01-23 15:03] LABS: BASOPHILS ABSOLUTE AUTO 0.10 K/uL (0.00-0.20); BASOPHILS PERCENT AUTO 1.0 % (0.0-1.0); EOSINOPHILS ABSOLUTE AUTO 0.40 K/uL (0.00-0.45); EOSINOPHILS PERCENT AUTO 4.0 % (0.0-6.0); IMMATURE GRAN ABSOLUTE AUTO 0.04 K/uL (0.00-0.05); IMMATURE GRAN PERCENT AUTO 0.4 % (0.0-0.4); LYMPHOCYTES ABSOLUTE AUTO 2.09 K/uL (1.00-4.80); LYMPHOCYTES PERCENT AUTO 20.7 % (24.0-44.0); MEAN PLATELET VOLUME 11.0 fL (9.4-12.3); MONOCYTES ABSOLUTE AUTO 0.62 K/uL (0.00-0.80); MONOCYTES PERCENT AUTO 6.1 % (0.0-8.0); NEUTROPHILS ABSOLUTE AUTO 6.87 K/uL (1.80-7.70); NEUTROPHILS PERCENT AUTO 67.8 % (41.0-71.0); NRBC ABSOLUTE 0.00 K/uL (0.00-0.02); NRBC PERCENT 0.0 /100WBC (0.0-0.2); PLATELET COUNT,PLT 282 K/uL (150-400); RED BLOOD CELL COUNT 4.96 M/uL (4.10-5.30); WHITE BLOOD CELL COUNT,WBC 10.12 K/uL (3.9-11.3)
[2025-01-23 15:40] LABS: A/G RATIO 1.0 (0.9-1.6); ALANINE AMINOTRANSFERASE,ALT 25.0 IU/L (14-63); ASPARTATE AMNIOTRANSFERASE,AST 24.0 IU/L (15-37); BILIRUBIN TOTAL 0.5 mg/dL (0.2-1.0); BLOOD UREA NITROGEN,BUN 18.0 mg/dL (7.0-18.0); CARBON DIOXIDE,CO2 28.5 mmol/L (21.0-32.0); CHLORIDE,CL 101.0 mmol/L (98-107); CREATININE 1.1 mg/dL (0.6-1.0); EST CRCL DRUG DOSING (CG) 50.61 mL/min; GLUCOSE RANDOM 312.0 mg/dL (74-106); POTASSIUM,K 4.5 mmol/L (3.5-5.1); PROTEIN TOTAL,TP 8.5 g/dL (6.4-8.2); SODIUM,NA 138.0 mmol/L (136-145)
[2025-01-23 15:52] LABS: ESTIMATED GFR 61.0 mL/min (>60)
[2025-01-23] MEDS: Iopamidol 755 MG/ML 500 ML Multipack Bottle IVPUSH STA (16:17)
== END 2025-01-23 17:53 | disposition home or self-care (01) ==
LOC: MW.ED 12:53
DX: J18.9 Pneumonia, unspecified organism (principal); I10 Essential (primary) hypertension; E10.9 Type 1 diabetes mellitus without complications; Z79.899 Other long term (current) drug therapy; Z79.4 Long term (current) use of insulin; Z90.49 Acquired absence of other specified parts of digestive tract; F17.200 Nicotine dependence, unspecified, uncomplicated
CPT/HCPCS: 36415; 71045; 71046; 71275; 80048; 80053; 82947; 83690; 83735; 84484; 84703; 85025; 85379; 87428; 93005; 99285; A9270; J3490; Q9967; 99283; 99284